=== PATIENT | female | born 1940 | race Caucasian/White ===

== ENCOUNTER 2021-03-06 15:24 | Inpatient (IN) | payer MEDICARE, BC, SELFPAY ==
--- NOTE | ~2021-03-06 | XR_ITS ---
EXAMINATION: XR chest 1V portable DATE: 03/08/2021 01:57 INDICATION: Shortness of breath. TECHNIQUE: A single frontal view of the chest was obtained. COMPARISON: Chest 2 views 11/11/2017, CT abdomen and pelvis 03/06/2021 FINDINGS: There is a diffuse interstitial pattern, consistent with mild pulmonary edema. No pleural e ffusion or pneumothorax. Cardiomegaly is noted. IMPRESSION: 1. Mild pulmonary edema. 2. Cardiomegaly. Reviewed, dictated and finalized at location A.
--- NOTE | ~2021-03-06 | CT_ITS ---
EXAMINATION: CT abdomen pelvis w con INDICATION: Abdominal pain, vomiting, melena TECHNIQUE: Computed tomographic images of the abdomen and pelvis were obtained after the administrati on of 100 cc of Omnipaque 350 intravenous contrast. The dose-length product (DLP) was 217.08 mGy-cm. Automated exposure control and iterative reconstruction technique were employed. COMPARISON: 02/12/2012 FINDINGS: Minimal dependent atelectasis is present in the lung bases. The heart size is normal. Punct ate calcifications in an otherwise normal spleen likely represent healed granulomatous disease. The l iver, pancreas, gallbladder, and adrenal glands are normal. Cysts of the kidneys measure up to 11 mm on the left. There are areas of cortical scarring of the kidneys. There is calcified atherosclerosis of the aorta and many of the other arteries. No pathologically enlarged abdominal or pelvic lymph nod es are identified. There is severe lumbar spondylosis. There are lucencies in the left femoral head a nd neck at the sites of prior orthopedic hardware. IMPRESSION: 1. No CT correlate for the patient's symptoms. Reviewed, dictated and finalized at location A.
--- NOTE | ~2021-03-06 | CT_ITS ---
EXAMINATION: CT brain wo con DATE: 03/11/2021 13:52 INDICATION: Hematoma post fall with head injury TECHNIQUE: Computed tomography (CT) of the head was performed without intravenous contrast. Sagittal and coronal reconstructions were performed. The mA was adjusted according to patient size. Iterative reconstruction technique was employed. The dose-length product was 605.33 mGy-cm. COMPARISON: None FINDINGS: No fracture. Regions of encephalomalacia in the anterior right corpus callosum, pericallosal right fr ontal lobe consistent with chronic infarct. Additional old lacunar infarct versus prominent perivascu lar space at the inferior aspect of the right basal ganglia. No acute intracranial hemorrhage, acute infarction or abnormal extra axial fluid collection. Ventricles are normal and symmetric. No mass/mas s effect. Changes of bilateral intraocular lens replacement. There has also been prior right-sided sc leral banding procedure. The paranasal sinuses and mastoid air cells are normal. Intracranial calcifi ed cerebral atherosclerosis is noted. IMPRESSION: 1. No fracture or acute intracranial process. 2. 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 2. Additional small old lacunar infarcts versus prominent perivascular space at the inferior right ba brie ganglia. Reviewed, dictated and finalized at location A. IMPRESSION: 1. No fracture or acute intracranial process. 2. 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 2. Additional small old lacunar infarcts versus prominent perivascular space at the inferior right basal ganglia.
[2021-03-06 15:28] VITALS: BP 138/83; PULSE 98; RESP 20; TEMP 36.8; O2SAT 100
[2021-03-06 16:00] LABS: Basophils Percent Auto 0.1 % (0.2-1.2); Hematocrit 23.4 % (37.0-47.0); Hemoglobin 7.7 g/dL (12.0-15.0); Immature Granulocyte Absolute 0.04 K/mm3 (0.00-0.031); Immature Granulocyte Percent A 0.6 % (0-0.5); Lymphocytes Percent Auto 14.5 % (18.3-44.2); Mean Corpuscular HGB Conc 32.9 g/dl (32-36); Mean Corpuscular Hemoglobin 29.7 pg (26-34); Mean Corpuscular Volume 90.3 fl (80-100); Mean Platelet Volume 11.6 fl (7.4-10.4); Monocytes Absolute Auto 0.4 K/mm3 (0.1-0.6); Monocytes Percent Auto 5.2 % (2.6-8.5); Neutrophils Absolute Auto 5.5 K/mm3 (1.3-6.7); Neutrophils Percent Auto 79.6 % (45.5-73.1); Platelet Count Result 181 k/mm3 (150-375); Red Blood Count 2.59 M/mm3 (4.2-5.4); Red Cell Distribution Width 13.3 % (11.5-14.5); White Blood Count 6.9 K/mm3 (4.5-10.0)
[2021-03-06 16:16] LABS: Albumin Level 4.1 g/dL (3.5-5.1); Alkaline Phosphatase 44 U/L (38-126); Anion Gap 9 mmol/L (8-16); Aspartate Amino Transferase 46 U/L (14-36); Bilirubin,Total < 0.1 mg/dL (0.2-1.3); Blood Urea Nitrogen 26 mg/dL (7-17); Calcium 9.4 mg/dL (8.4-10.2); Carbon Dioxide 23 mmol/L (22-30); Chloride 101 mmol/L (98-107); Estimated Glomerular Filt Rate 60; Glucose 129 mg/dL (65-105); Lipase 175 U/L (23-300); Potassium 4.1 mmol/L (3.4-5.0); Sodium 133 mmol/L (137-145)
[2021-03-06 17:02] LABS: Alanine Aminotransferase 31 U/L (4-35)
[2021-03-06 17:03] VITALS: BP 132/105; PULSE 97; RESP 18; O2SAT 100
[2021-03-06 17:14] LABS: Add Urine Microscopic? YES; Appearance Urine Cloudy (Clear); Bacteria Urine Trace /hpf; Bilirubin Urine Negative (Negative); Blood Urine Negative (Negative); Color Urine Yellow (Yellow); Glucose Urine UA Negative (Negative); Ketones Urine Negative (Negative); Leukocyte Esterase Ur 2+ LEU/UL (Negative); Mucus Urine Rare /lpf; Nitrate Urine Negative (Negative); Protein Urine 2+ mg/dL (Negative); RBC Urine 0-2 /hpf (0-2); Squamous Epithelial Cell Urine Moderate /hpf (Few); Transitional Epi Cells Urine Rare /hpf (None Seen); Urobilinogen Urine Negative mg/dL (<2.0)
--- NOTE | 2021-03-06 17:59 | ED.NAVMDI ---
HPI - Nausea/Vomiting/Diarrhea General Chief complaint: Nausea/Vomiting/Diarrhea Stated complaint: diarrhea Time Seen by Provider: 03/06/21 17:48 Source: patient Mode of arrival: ambulatory Limitations: no limitations History of Present Illness HPI Narrative: This is a 80 year old female that presents to the ER for nausea and vomiting x 1 week. Associated with black stools. Reports diffuse crampy abdominal pain. Denies fever, chest pain, shortness of breath, dysuria or hematuria. Related Data Home Medications Medication Instructions Recorded Confirmed aspirin 325 mg tablet 325 mg PO DAILY 08/31/19 08/31/19 Allergies Allergy/AdvReac Type Severity Reaction Status Date / Time No Known Allergies Verified 09/02/19 14:18 Review of Systems Review of Systems: Narrative: CONSTITUTIONAL: Denies fever GASTROINTESTINAL: Reports abdominal pain, nausea, vomiting, and diarrhea. GENITOURINARY: Denies dysuria or hematuria. All systems reviewed & are unremarkable except as noted in HPI and below PMFSH Past Medical History Medical History (Updated 03/06/21 @ 21:26 by Mayda Quiroz PA-C) Allergic rhinitis Atherosclerotic heart disease of [place] coronary artery without angina pectoris Chronic low back pain without sciatica Chronic renal insufficiency, stage III (moderate) Hypothyroidism, unspecified Mixed hyperlipidemia Peripheral neuropathy, idiopathic PVD (peripheral vascular disease) Thoracic kyphosis Type 2 diabetes mellitus without complication Vitamin D deficiency Surgical History Surgical History (Updated 09/02/19 @ 14:[address] Gal[address] MA) Fracture of left hip requiring operative repair H/O heart artery stent History of carpal tunnel surgery of right wrist History of cataract surgery History of inguinal hernia repair Interdigital neuroma of left foot Rotator cuff arthropathy of right shoulder Family History Family History (Updated 02/08/15 @ 10:44 by DOCTOR UNKNOWN) Mother Hypertension Family history of heart disease in male family member before age 55 Father Family history of lung cancer Other Family history of cardiovascular disease Family history of coronary artery disease Social History Social History (Updated 09/02/19 @ 14:[address] Gal[address] MA) Smoking status: Never smoker Second hand tobacco smoke exposure: No Alcohol intake: never Substance use: never Substance use type: does not use Gender identity (if verbalized by the patient): Female Exam Narrative: Exam Narrative: GENERAL: Elderly, well-nourished, and in no acute distress. HEAD: Normocephalic, atraumatic. EYES: EOMI. CHEST: Clear to auscultation. No respiratory distress. No wheezes rales or rhonchi HEART: Regular rate and rhythm. No murmur heard. Normal peripheral pulses. ABDOMEN: Soft, nondistended, normal active bowel sounds. Tender to palpation throughout the abdomen, without guarding. No CVA tenderness EXTREMITIES: Normal range of motion. No edema. SKIN: Warm, dry, no rash. NEURO: No focal deficits. Alert and oriented x3. PSYCH: Normal mood and affect RECTAL: Hemoccult positive Course Consultations Consultation #1: Spoke with Dr. Ramsey about patient and work-up who will consult for GI bleed. Would like patient n.p.o. at midnight Date: 03/06/21 Time: 21:45 Consultation #2: Spoke with hospitalist about patient and work-up who accepts admission Date: 03/06/21 Time: 21:45 Vital Signs Vital signs: Vital Signs Temperature 98.2 F 03/06/21 15:28 Pulse Rate 98 03/06/21 15:28 Respiratory Rate 20 03/06/21 15:28 Blood Pressure 138/83 03/06/21 15:28 Pulse Oximetry 100 03/06/21 15:28 Temperature 98.2 F 03/06/21 15:28 Pulse Rate 99 03/06/21 20:56 Respiratory Rate 20 03/06/21 20:56 Blood Pressure 128/65 03/06/21 20:56 Pulse Oximetry 99 03/06/21 20:56 MDM - Nausea/Vomiting/Diarrhea MDM Narrative Medical decision making narrative: Patient presents
[2021-03-06] MEDS: ONDANSETRON INJ 4 MG/2 ML VIAL IV PUSH ×2 (18:18→21:01)
[2021-03-06] MEDS: MORPHINE SULFATE (*CRX) 2 MG/ML INJ IV PUSH (18:18)
[2021-03-06 18:33] VITALS: BP 124/64; PULSE 97; RESP 20; O2SAT 100
[2021-03-06 18:47] LABS: Prothrombin Time 14.1 Seconds (11.1-14.7)
[2021-03-06 18:48] LABS: Partial Thromboplastin Time 26.9 SECONDS (22.3-36.8)
[2021-03-06 19:04] VITALS: BP 124/69; PULSE 99; RESP 20; O2SAT 100
[2021-03-06 19:43] LABS: Lactic Acid Reflex 1.8 mmol/L (0.7-2.1)
[2021-03-06] MEDS: PANTOPRAZOLE SODIUM IV 40 MG VIAL IV PUSH (19:43)
--- NOTE | 2021-03-06 20:37 | PC.NURSE ---
called lab @ 2037, spoke with freddie and added urine culture
[2021-03-06 20:56] VITALS: BP 128/65; PULSE 99; RESP 20; O2SAT 99
[2021-03-06] MEDS: BELLADONNA ALK/PHENOB ELIX 10 ML, MAG HYDROX/ALUMINUM HYD/SIMETH 30 ML, LIDOCAINE HCL 2... PO (21:01)
[2021-03-06] MEDS: METOCLOPRAMIDE HCL INJ 10 MG/2 ML VIAL IV PUSH (21:45)
[2021-03-06] MEDS: SODIUM CHLORIDE 0.9% IV 1,000 ML 125 ML IV CONT (21:45)
[2021-03-06] MEDS: diphenhydrAMINE HCl INJ 50 MG/ML VIAL 25 MG IV PUSH (21:45)
[2021-03-06 22:26] VITALS: BP 130/71; PULSE 91; RESP 21; O2SAT 100
[2021-03-06 22:43] LABS: Hematocrit 22.1 % (37.0-47.0); Hemoglobin 7.2 g/dL (12.0-15.0)
--- NOTE | 2021-03-06 23:12 | ADMGEN ---
This patient, Layla Srinivasan, was admitted to Medical Room 343-01. Patient/family oriented to hospital policies and general routines including ID bracelet, bed and alarms, visiting hours, pain management, procedures, bathroom and other care routines, personal items, smoking policy, room service/diet, and visiting hours. Information on how to activate the Rapid Response Team has been discussed. Patient/Family are encouraged to report perceived risks to care and to ask questions if they do not understand what they are told or what they should do.
[2021-03-06 23:16] VITALS: BMI 23.6
[2021-03-07] VITALS (17 sets, daily range): BP systolic 77–109; BP diastolic 46–66; PULSE 48–103; RESP 16–28; TEMP 36.3–36.8; O2SAT 94–100
--- NOTE | 2021-03-07 01:57 | PM.IMHP ---
H&P: HPI History of Present Illness Date/Time: 03/07/21 01:57 Chief Complaint: ABDOMINAL PAIN Narrative: THIS IS AN 80-YEAR-OLD FEMALE WITH PAST MEDICAL HISTORY SIGNIFICANT FOR Allergic rhinitis ,Atherosclerotic heart disease of [place] coronary artery without angina pectoris,Chronic low back pain,Chronic renal insufficiency, stage III (moderate),Hypothyroidism, Mixed hyperlipidemia ,Peripheral neuropathy, idiopathic,PVD (peripheral vascular disease) ,Thoracic kyphosis ,Type 2 diabetes mellitus without complication,Vitamin D deficiency. PATIENT PRESENTS TO EMERGENCY ROOM DUE TO ABDOMINAL PAIN FOR 3 DAYS OR SO BLACK STOOLS GENERALIZED FATIGUE WEAKNESS POOR APPETITE, NO SYNCOPE OR NEAR SYNCOPE HAD SOME NAUSEA AND VOMITING BUT NO HEMATEMESIS. NO FEVERS NO RIGORS NO CHILLS NO COUGH NO SPUTUM PRODUCTION PATIENT WAS FOUND TO HAVE A HEMOGLOBIN OF 7.7. A CT OF ABDOMEN AND PELVIS WAS UNREMARKABLE. Review of Systems Review of Systems: Narrative: PATIENT PRESENTED TO THE EMERGENCY ROOM DUE TO ABDOMINAL PAIN IN THE EPIGASTRIC AREA BLACK STOOLS FOR SEVERAL DAYS NO HEMATEMESIS NO HEMATOCHEZIA Constitutional: Constitutional: Denies chills, Reports fatigue, Reports lethargy and Reports weakness Eyes: Eyes: Denies change in vision ENT: Denies nasal congestion and Denies nasal discharge Cardiovascular: Cardiovascular: Denies chest pain, Denies irregular heart rhythm, Denies leg edema, Denies palpitations and Reports dyspnea Respiratory: Respiratory: Denies cough Gastrointestinal: Gastrointestinal: Reports abdominal pain, Reports melena, Reports nausea and Reports vomiting Genitourinary: Genitourinary: Denies dysuria Musculoskeletal: Musculoskeletal: Denies arthralgias and Denies joint swelling Integumentary/Breasts: Skin/Breast: Denies rash Neurologic: Denies focal weakness and Denies Sensory deficit (Neuro) Endocrine: Endocrine: Denies no additional endocrine complaints Hematologic/Lymphatic: Hematologic/Lymphatic: Denies no additional hematologic/lymphatic complaints Allergic/Immunologic: Allergic/Immunologic: Denies no additional allergic/immunologic complaints [facility] Past Medical History Medical History (Updated 03/06/21 @ 21:26 by Mayda Quiroz PA-C) Allergic rhinitis Atherosclerotic heart disease of [place] coronary artery without angina pectoris Chronic low back pain without sciatica Chronic renal insufficiency, stage III (moderate) Hypothyroidism, unspecified Mixed hyperlipidemia Peripheral neuropathy, idiopathic PVD (peripheral vascular disease) Thoracic kyphosis Type 2 diabetes mellitus without complication Vitamin D deficiency Surgical History Surgical History (Updated 09/02/19 @ 14:[address] Gal[address] MA) Fracture of left hip requiring operative repair H/O heart artery stent History of carpal tunnel surgery of right wrist History of cataract surgery History of inguinal hernia repair Interdigital neuroma of left foot Rotator cuff arthropathy of right shoulder Family History Family History (Updated 02/08/15 @ 10:44 by DOCTOR UNKNOWN) Mother Hypertension Family history of heart disease in male family member before age 55 Father Family history of lung cancer Other Family history of cardiovascular disease Family history of coronary artery disease Social History Social History (Updated 09/02/19 @ 14:[address] Gal[address] MA) Smoking status: Never smoker Second hand tobacco smoke exposure: No Alcohol intake: never Substance use: never Substance use type: does not use Gender identity (if verbalized by the patient): Female Spiritual care concerns: No Meds Home Medications and Allergies Home Medications Medication Instructions Recorded Confirmed Type levothyroxine 25 mcg tablet 25 mcg PO DAILY #90 tablet 06/22/20 03/06/21 Rx metoprolol succinate 25 mg 50 mg PO DAILY #60 tablet 06/22/20 03/06/21 Rx tablet,extended release 24 hr clopidogrel 75 mg tablet 75 mg PO
[2021-03-07 03:57] LABS: Hematocrit 21.8 % (37.0-47.0); Hemoglobin 7.3 g/dL (12.0-15.0)
[2021-03-07 06:03] LABS: Glucose Point of Care 139 (65-105)
[2021-03-07] MEDS: SODIUM CHLORIDE 0.9% IV 1,000 ML 75 ML IV CONT (06:12)
[2021-03-07] MEDS: ONDANSETRON INJ 4 MG/2 ML VIAL IV PUSH (06:12)
--- NOTE | 2021-03-07 07:47 | WPDGICN ---
Assessment and Plan Assessment and plan (1) Melena: Code(s): K92.1 - Melena Status: Acute Assessment and Plan: continue with iv protonix, will do urgent EGD later today- probably upper GIB (2) Acute blood loss anemia: Code(s): D62 - Acute posthemorrhagic anemia Status: Acute Assessment and Plan: monitor hb and keep about 7 supportive care (3) Acute GI bleeding: Code(s): K92.2 - Gastrointestinal hemorrhage, unspecified Status: Acute (4) Peripheral neuropathy, idiopathic: Code(s): G60.9 - Hereditary and idiopathic neuropathy, unspecified Status: Acute (5) Atherosclerotic heart disease of [place] coronary artery without angina pectoris: Code(s): I25.10 - Atherosclerotic heart disease of [place] coronary artery without angina pectoris Status: Acute Assessment and Plan: holding plavix for now GI Consult Note Consult date/time: 03/07/21 07:47 Reason for consult: melena, acute anemia HPI: Layla Srinivasan is a 80 year old female with history of CAD on plavix, peripheral neuropathy, PVD who came here with 3 days of nausea, abdominal discomfort and most recently noted dark tarry stools. Hb on arrival was low 7.7, bun 26, creat 0.9, normal platelets and INR. Never had GI bleeding. She had CT scan a/p that was reviewed and normal. She had colonoscopy years ago and cologuard last year Review of Systems Constitutional: Constitutional: Reports fatigue and Denies headache(s) Eyes: Eyes: Denies blurry vision ENT: Reports Normal hearing present, Denies headache(s) and Denies neck pain Cardiovascular: Cardiovascular: Denies chest pain and Denies dyspnea Respiratory: Respiratory: Denies dyspnea Gastrointestinal: Gastrointestinal: Reports melena and Reports nausea Genitourinary: Genitourinary: Denies dysuria Musculoskeletal: Musculoskeletal: Denies neck pain Integumentary/Breasts: Skin/Breast: Denies dry skin Neurologic: Reports Normal hearing present, Denies headache(s) and Denies weakness Psychiatric: Psychiatric: Denies anxiety Endocrine: Endocrine: Denies change in body appearance Hematologic/Lymphatic: Hematologic/Lymphatic: Denies easy bleeding Allergic/Immunologic: Allergic/Immunologic: Denies urticaria PMFSH Past Medical History Medical History (Updated 03/07/21 @ 09:16 by Rainer Melo MD) Acute blood loss anemia Allergic rhinitis Atherosclerotic heart disease of [place] coronary artery without angina pectoris Chronic low back pain without sciatica Chronic renal insufficiency, stage III (moderate) Hypothyroidism, unspecified Melena Mixed hyperlipidemia Peripheral neuropathy, idiopathic PVD (peripheral vascular disease) Thoracic kyphosis Type 2 diabetes mellitus without complication Vitamin D deficiency Surgical History Surgical History (Updated 09/02/19 @ 14:[address] Gal[address] MA) Fracture of left hip requiring operative repair H/O heart artery stent History of carpal tunnel surgery of right wrist History of cataract surgery History of inguinal hernia repair Interdigital neuroma of left foot Rotator cuff arthropathy of right shoulder Family History Family History (Updated 02/08/15 @ 10:44 by DOCTOR UNKNOWN) Mother Hypertension Family history of heart disease in male family member before age 55 Father Family history of lung cancer Other Family history of cardiovascular disease Family history of coronary artery disease Social History Social History (Updated 09/02/19 @ 14:[address] MA) Smoking status: Never smoker Second hand tobacco smoke exposure: No Alcohol intake: never Substance use: never Substance use type: does not use Gender identity (if verbalized by the patient): Female Spiritual care concerns: No Meds Home Medications and Allergies Home Medications Medication Instructions Recorded Confirmed Type levothyroxine 25 mcg tab
[2021-03-07] MEDS: GABAPENTIN 300 MG CAPSULE 900 MG PO ×2 (08:24→17:49)
[2021-03-07] MEDS: PANTOPRAZOLE SODIUM IV 40 MG VIAL IV PUSH ×2 (08:24→23:57)
[2021-03-07] MEDS: METOPROLOL SUCCINATE EXT REL 50 MG TABCR PO (08:25)
--- NOTE | 2021-03-07 11:20 | PC.NURSE ---
Pt down to GI lab for EGD
--- NOTE | 2021-03-07 11:37 | WPDANESEPPF ---
Anes - Initial Pre Proc Eval Procedure: Operation Date: 03/07/21 13:15 Proposed Procedures p Esophagogastroduodenoscopy - Rainer Melo MD Date/Time: 03/07/21 11:37 Surgeon: Gloria Benavides MD Pre Op Diagnosis: GI bleed Patient Data Age: 80 Gender: F Height: 1.52 m Weight: 55 kg Last Vital Signs Temp 36.4 C 03/07/21 05:43 Pulse 86 03/07/21 08:25 Resp 18 03/07/21 05:43 BP 109/62 03/07/21 05:48 Pulse Ox 100 03/07/21 05:43 Allergies Allergy/AdvReac Type Severity Reaction Status Date / Time No Known Allergies Verified 03/07/21 11:28 Home Medications Medication Instructions Recorded Confirmed Type levothyroxine 25 mcg tablet 25 mcg PO DAILY #90 tablet 06/22/20 03/07/21 Rx metoprolol succinate 25 mg 50 mg PO DAILY #60 tablet 06/22/20 03/07/21 Rx tablet,extended release 24 hr clopidogrel 75 mg tablet 75 mg PO DAILY #90 tablet 11/20/20 03/07/21 Rx aspirin [Adult Aspirin] 81 mg PO DAILY 03/06/21 03/07/21 History gabapentin 900 mg PO BID 03/06/21 03/07/21 History Laboratory Tests 03/06/21 03/06/21 03/06/21 15:31 15:31 17:00 WBC 6.9 K/mm3 K/mm3 (4.5-10.0) RBC 2.59 M/mm3 L M/mm3 (4.2-5.4) Hgb 7.7 g/dL L g/dL (12.0-15.0) Hct 23.4 % L % (37.0-47.0) MCV 90.3 fl fl (80-100) MCH 29.7 pg pg (26-34) MCHC 32.9 g/dl g/dl (32-36) RDW 13.3 % % (11.5-14.5) Plt Count 181 k/mm3 k/mm3 (150-375) MPV 11.6 fl H fl (7.4-10.4) Immature Gran % (Auto) 0.6 % H % (0-0.5) Neut % (Auto) 79.6 % H % (45.5-73.1) Lymph % (Auto) 14.5 % L % (18.3-44.2) [place] % (Auto) 5.2 % % (2.6-8.5) Eos % (Auto) 0.0 % % (0-4.4) Baso % (Auto) 0.1 % L % (0.2-1.2) Lymph # (Auto) 1.00 K/mm3 K/mm3 (0.9-3.2) [place] # (Auto) 0.4 K/mm3 K/mm3 (0.1-0.6) Eos # (Auto) 0.0 K/mm3 K/mm3 (0-0.3) Baso # (Auto) 0.0 K/mm3 K/mm3 (0.0-0.1) Abs Immat Gran (auto) 0.04 K/mm3 H K/mm3 (0.00-0.031) Absolute Neuts (auto) 5.5 K/mm3 K/mm3 (1.3-6.7) Absolute Nucleated RBC 0.0 K/mm3 K/mm3 (0.0-0.012) Nucleated RBC % 0.0 % % (0.0-0.2) PT INR APTT Sodium 133 mmol/L L mmol/L (137-145) Potassium 4.1 mmol/L mmol/L (3.4-5.0) Chloride 101 mmol/L mmol/L (98-107) Carbon Dioxide 23 mmol/L mmol/L (22-30) Anion Gap 9 mmol/L mmol/L (8-16) BUN 26 mg/dL H mg/dL (7-17) Creatinine 0.90 mg/dL mg/dL (0.7-1.0) Estim Creat Clear Calc Not Reportable Estimated GFR 60 (59 - ) Glucose 129 mg/dL H mg/dL (65-105) POC Capillary Glucose Lactic Acid Calcium 9.4 mg/dL mg/dL (8.4-10.2) Total Bilirubin < 0.1 mg/dL L mg/dL (0.2-1.3) AST 46 U/L H U/L (14-36) ALT 31 U/L U/L (4-35) Alkaline Phosphatase 44 U/L U/L (38-126) Total Protein 7.0 g/dL g/dL (6.3-8.2) Albumin 4.1 g/dL g/dL (3.5-5.1) Lipase 175 U/L U/L (23-300) Urine Color Yellow (Yellow) Urine Appearance Cloudy H (Clear) Urine pH 6.0 (5.0-9.0) Ur Specific [place] 1.020 (1.001-1.035) Urine Protein 2+ mg/dL H mg/dL (Negative) Urine Glucose (UA) Negative mg/dL mg/dL (Negative) Urine Ketones Negative mg/dL mg/dL (Negative) Ur Blood (Man) Negative (Negative) Urine Nitrate Negative (Negative) Urine Bilirubin Negative (Negative) Urine Urobilinogen Negative mg/dL mg/dL (<2.0) Leukocyte Esterase Rfl 2+ MADI/UL H MADI/UL (Negative) Urine RBC 0-2 /hpf /hpf (0-2) Urine WBC 4-6 /hpf H /hpf Ur Squamous Epith Cells
[2021-03-07] MEDS: LACTATED RINGERS 1,000 ML 150 ML IV CONT (11:40)
[2021-03-07 12:31] LABS: Hematocrit 21.8 % (37.0-47.0); Hemoglobin 7.1 g/dL (12.0-15.0)
--- NOTE | 2021-03-07 12:46 | SUR.PHASEII ---
PT RECEIVING PHENYLEPHRINE PER ANESTHESIA IN POST OP, DR CAMPOS AWARE AND TREATING
[2021-03-07 15:37] LABS: Hematocrit 21.6 % (37.0-47.0)
[2021-03-07 15:42] LABS: Hemoglobin 6.9 g/dL (12.0-15.0)
--- NOTE | 2021-03-07 15:50 | PM.IMPN ---
Progress Note: A&P Assessment and Plan (1) Acute GI bleeding: Code(s): K92.2 - Gastrointestinal hemorrhage, unspecified Status: Acute Assessment and Plan: REPEAT H&H IS 7.2 FROM 7 POINT TRANSFUSE NEEDED HOLDING PLAVIX AND ASPIRIN GI CONSULT SUPPORTIVE CARE (2) Type 2 diabetes mellitus without complication: Code(s): E11.9 - Type 2 diabetes mellitus without complications Status: Acute Assessment and Plan: CURRENTLY NPO ACCU-CHEKS Q.6 HOURS INSULIN SLIDING SCALE NEEDED ON NO MEDS CONTROLLED WITH DIET 03/07/21 15:50 Chief Complaint: ABDOMINAL PAIN Narrative: THIS IS AN 80-YEAR-OLD FEMALE WITH PAST MEDICAL HISTORY SIGNIFICANT FOR Allergic rhinitis ,Atherosclerotic heart disease of [place] coronary artery without angina pectoris,Chronic low back pain,Chronic renal insufficiency, stage III (moderate),Hypothyroidism, Mixed hyperlipidemia ,Peripheral neuropathy, idiopathic,PVD (peripheral vascular disease) ,Thoracic kyphosis ,Type 2 diabetes mellitus without complication,Vitamin D deficiency. PATIENT PRESENTS TO EMERGENCY ROOM DUE TO ABDOMINAL PAIN FOR 3 DAYS OR SO BLACK STOOLS GENERALIZED FATIGUE WEAKNESS POOR APPETITE, NO SYNCOPE OR NEAR SYNCOPE HAD SOME NAUSEA AND VOMITING BUT NO HEMATEMESIS. NO FEVERS NO RIGORS NO CHILLS NO COUGH NO SPUTUM PRODUCTION PATIENT WAS FOUND TO HAVE A HEMOGLOBIN OF 7.7. A CT OF ABDOMEN AND PELVIS WAS UNREMARKABLE. 03/07 today patient was seen by GI and taken to GI lab had a EGD was essentially normal without any source of bleeding did show some gastritis and hiatal hernia We have continued Protonix 40 mg b.i.d. IV, will do iron profile, will continue to monitor and further recommendation to follow, patient will will be seen by GI and further recommendation to follow (3) Peripheral neuropathy, idiopathic: Code(s): G60.9 - Hereditary and idiopathic neuropathy, unspecified Status: Acute Assessment and Plan: CONTINUE GABAPENTIN (4) PVD (peripheral vascular disease): Code(s): I73.9 - Peripheral vascular disease, unspecified Status: Acute Assessment and Plan: STABLE CONTINUE TO MONITOR (5) Chronic renal insufficiency, stage III (moderate): Code(s): N18.3 - Chronic kidney disease, stage 3 (moderate) Status: Acute Assessment and Plan: CONTINUE TO MONITOR DAILY INTAKE AND OUTPUT (6) Atherosclerotic heart disease of [place] coronary artery without angina pectoris: Code(s): I25.10 - Atherosclerotic heart disease of [place] coronary artery without angina pectoris Status: Acute Assessment and Plan: IS STABLE HOLDING PLAVIX AND CONTINUE METOPROLOL Subjective Date/time seen: 03/07/21 15:50 Chief Complaint: ABDOMINAL PAIN Narrative: THIS IS AN 80-YEAR-OLD FEMALE WITH PAST MEDICAL HISTORY SIGNIFICANT FOR Allergic rhinitis ,Atherosclerotic heart disease of [place] coronary artery without angina pectoris,Chronic low back pain,Chronic renal insufficiency, stage III (moderate),Hypothyroidism, Mixed hyperlipidemia ,Peripheral neuropathy, idiopathic,PVD (peripheral vascular disease) ,Thoracic kyphosis ,Type 2 diabetes mellitus without complication,Vitamin D deficiency. PATIENT PRESENTS TO EMERGENCY ROOM DUE TO ABDOMINAL PAIN FOR 3 DAYS OR SO BLACK STOOLS GENERALIZED FATIGUE WEAKNESS POOR APPETITE, NO SYNCOPE OR NEAR SYNCOPE HAD SOME NAUSEA AND VOMITING BUT NO HEMATEMESIS. NO FEVERS NO RIGORS NO CHILLS NO COUGH NO SPUTUM PRODUCTION PATIENT WAS FOUND TO HAVE A HEMOGLOBIN OF 7.7. A CT OF ABDOMEN AND PELVIS WAS UNREMARKABLE. 03/07 today patient was seen by GI and taken to GI lab had a EGD was essentially normal without any source of bleeding did show some gastritis and hiatal hernia We have continued Protonix 40 mg b.i.d. IV, will do iron profile, will continue to monitor and further recommendation to follow, patient will will be seen by GI and further recommendation to follow Review of Systems Review of System
[2021-03-07 21:40] LABS: Glucose Point of Care 174 mg/dl (65-105)
[2021-03-08] VITALS (36 sets, daily range): BP systolic 82–150; BP diastolic 44–100; PULSE 42–95; RESP 10–30; TEMP 34.4–37.2; O2SAT 90–100
--- NOTE | 2021-03-08 | ECHO_ITS ---
Patient Info Name: Layla Srinivasan Age: 80 years : 1940 Gender: Female Ht: 60 in Wt: 138 lbs BSA: 1.65 m2 HR: 85 bpm BP: 112 / 71 mmHg Heart Rhythm: Sinus Rhythm Technical Quality: Good Exam Date: 03/08/2021 10:27 AM Exam Location: [facility] Pulmonary Exam Room: ICU 12 Patient Status: Inpatient Admit Date: 03/07/2021 Staff Ordering Physician: Ishan Nava MD Computer Forensics Investigator: Marta Shine RDCS Attending Provider: Gloria Benavides MD Exam Type: CA echo doppler color flow Study Info Indications - shock NSTEMI Complete two-dimensional, color flow and Doppler transthoracic echocardiogram is performed. Summary 1. Complete two-dimensional, color flow and Doppler transthoracic echocardiogram is performed. 2. Left ventricular chamber dimension is normal. 3. Left ventricular systolic function is moderately reduced, estimated at 35%. There is akinesis of the basal inferior wall. The apical septal, apical and mid anterior marroquin are hypokinetic. 4. There is mildly increased left ventricular wall thickness. 5. The left ventricular diastolic function is grade II diastolic dysfunction. 6. Left atrial chamber dimension is moderately enlarged. 7. There is mild to moderate tricuspid valve regurgitation. 8. Mild pulmonary hypertension, estimated pulmonary arterial systolic pressure is 44 mmHg. Left Ventricle Left ventricular chamber dimension is normal. Left ventricular systolic function is moderately reduced, estimated at 35%. There is akinesis of the basal inferior wall. The apical septal, apical and mid anterior marroquin are hypokinetic. There is mildly increased left ventricular wall thickness. The left ventricular diastolic function is grade II diastolic dysfunction. Global longitudinal strain is moderately elevated at -8 %. T. Right Ventricle Right ventricular chamber dimension is normal. Right ventricular systolic function is normal. Left Atria Left atrial chamber dimension is moderately enlarged. Right Atria Right atrial chamber dimension is normal. Aortic Valve The aortic valve is trileaflet. There is no aortic valve stenosis. There is no aortic valve regurgitation. There is mild aortic valve calcification. Pulmonic Valve The pulmonic valve is normal. There is mild pulmonic regurgitation. Mitral Valve The mitral valve has thickened leaflets. There is mild mitral valve regurgitation. The mitral valve annulus is severely calcified. Tricuspid Valve The tricuspid valve leaflets are normal. There is mild to moderate tricuspid valve regurgitation. Mild pulmonary hypertension, estimated pulmonary arterial systolic pressure is 44 mmHg. Pericardium/Pleural The pericardium appears normal. There is no pericardial effusion. Inferior Vena Cava Dilated inferior vena cava with >50% collapse upon inspiration consistent with elevated right atrial pressure, 10 mmHg. Aorta The aortic root size at the sinus of Valsalva is normal. There is mild aortic atherosclerosis. Left Ventricular Outflow Tract Name Value Normal LVOT 2D LVOT Diameter 2.0 cm LVOT Doppler LVOT Peak Gradient
--- NOTE | 2021-03-08 00:19 | ECG_ITS ---
Measurements Intervals [place] Rate: 42 P: [place]: 0 QRS: 19 QRSD: 111 T: 138 QT: 544 QTc: 455 Interpretive Statements JUNCTIONAL RHYTHM SEPTAL ST ELEVATION MYOCARDIAL INFARCT- PROBABLY RECENT ABNORMAL ECG Electronically Signed On 03-08-2021 6:57:17 CDT by Anatoliy Bolton D.O.
[2021-03-08 00:45] LABS: Alveolar/Arterial O2 Gradient 41.1 mmHg; Base Excess ABG -11.8 mEq/l (+/-2.0); Fractional Inspired Oxygen 21 %; HCO3 ABG 12.2 mEq/l (22.0-26.0); Oxygen Content ABG 10.4 %vol (16.0-22.0); Oxygen Saturation ABG 96.2 % (95.0-100.0); Oxyhemoglobin 93.5 % THb (90.0-100.0); PO2 ABG 82.9 mmHg (80.0-100.0); PO2 FiO2 Ratio Arterial Blood 3.95 %
[2021-03-08 00:46] LABS: Device ROOM AIR; PCO2 ABG 21.5 mmHg (35.0-45.0); Site Drawn RIGHT BRACHIAL; Total Hemoglobin 7.8 g/dL (12.0-18.0)
--- NOTE | 2021-03-08 00:48 | PC.NURSE ---
Dr Smith on floor to check on pt after ABGs and EKG came back. He stated we needed to call a rapid on the pt to have labs and pt moved quicker.
--- NOTE | 2021-03-08 01:20 | PC.NURSE ---
Pt moved to ICU 12. Teddy Davis RN assumed care of pt. PTs son, Garcia, called and updated on pts condition and move to ICU.
[2021-03-08 01:28] LABS: Hematocrit 22.9 % (37.0-47.0); Hemoglobin 7.2 g/dL (12.0-15.0); Mean Corpuscular HGB Conc 31.4 g/dl (32-36); Mean Corpuscular Hemoglobin 30.4 pg (26-34); Mean Corpuscular Volume 96.6 fl (80-100); Mean Platelet Volume 11.7 fl (7.4-10.4); Platelet Count Result 152 k/mm3 (150-375); Red Blood Count 2.37 M/mm3 (4.2-5.4); Red Cell Distribution Width 14.3 % (11.5-14.5); White Blood Count 10.7 K/mm3 (4.5-10.0)
--- NOTE | 2021-03-08 01:32 | ECG_ITS ---
Measurements Intervals [place] Rate: 82 P: 68 RI: 111 QRS: 31 QRSD: 115 T: 173 QT: 389 QTc: 456 Interpretive Statements SINUS RHYTHM WITH SHORT RI INTERVAL SEPTAL ST ELEVATION MYOCARDIAL INFARCT- ACUTE, WITH RECIPROCAL ST DEPRESSION IN HIGH LATERAL LEADS BASELINE ARTIFACT- I, II, III, AVR, AVL, AVF, V1 ABNORMAL ECG Electronically Signed On 03-08-2021 7:00:06 CDT by Anatoliy Bolton D.O.
[2021-03-08 01:42] LABS: Anion Gap 14 mmol/L (8-16); Blood Urea Nitrogen 23 mg/dL (7-17); Calcium 8.3 mg/dL (8.4-10.2); Carbon Dioxide 13 mmol/L (22-30); Chloride 105 mmol/L (98-107); Estimated CRCL calculation 20 ml/min; Estimated Glomerular Filt Rate 36; Glucose 183 mg/dL (65-105); Potassium 4.9 mmol/L (3.4-5.0); Sodium 132 mmol/L (137-145)
--- NOTE | 2021-03-08 02:21 | P.PNCROSS_ITS ---
Event Note Event Note Event Note: Called for evaluation for this patient approximately 1230 am, she is less responsive and her pulse was noted to be low compared to earlier. stat EKG was obtained which showed bradycardia with high grade AV block suggestive. patient mumbles and still was followig minimal commands. carpentry specialist was called and labs were obtained. patient remained bradycardiac. stat ABG showed respiratory alkalosis with undelrying severe metabolic acidosis. 2 amp of bicarb iv push was given with subsequnet heart rate improved back to sinus rhythm at the rate of 80s. bp has been lowish and remained borderline at systolic 80s to 90s. iv fluid bolus was started and given during the rapid response. after bicarb push, pateint became more conversive and stated her name in full senstence, but reamined lethargic. She was the moved to the ICU for further care. REpeat EKG was obatined which showed lateral wall ischemic changes with St depressions on I, aVL, V5 and V6. She did not have any older EKG for me to compare. she denies any chest pain. stat labs revealed metabolic acidosis, mild shellie with cr of 1.4. CXR with mild opacities in right lower lobe, leukoctyosis noted. hypothermia noted wth temp 94.1 degreee fahrenheit. will cover for possible sepsis with zosyn iv for now. Troponin came back high at 48. Consulted cadiology with regards to EKG chagnes over the phone and EKGs were reviewed by the cardioloigst Gordon Schafer as well, suggested no indication of cath due to recent GI bleed and suggested medical managment. Hb came back at 7.2, earlier today, it was 6.9. egd this am was noted with gastritis and ulcerative changes with no active bleeding. with stable h and h, not suggestive of active bleed. decision made to give her rectal Apsirin 300 mg x 1 (she was not coherent enough to take oral) Have dsicussed with family over the pohne (Garcia, son) and confirms her to be full code, in case she deteriorates. She is placed on bicarb gtt for her metabolic acidosis.will transfuse one unit of PRBC to keep her hb > 8 at least. will trend her troponin. She was slowly improved in her mental status, able to verbalize her son and daughter's name and open her eyes. Discused findings and evaluation with service support representative Dr. Nava over the phone. CCT: 60 mins
--- NOTE | 2021-03-08 02:27 | PC.NURSE ---
Dr. Cevallos at bedside. Aware of low temperature of 94.0. Dr. Cevallos also notified Dr. Nava and Dr. Mullen from Cardiology. Orders received and put in per Dr. Cevallos.
[2021-03-08] MEDS: ASPIRIN 300 MG SUPPOSITORY RECTAL (02:44)
[2021-03-08] MEDS: SODIUM BICARBONATE 8.4% 150 MEQ in WATER, STERILE FOR INJECTION 950 ML 100 MEQ IV CONT (03:03)
--- NOTE | 2021-03-08 03:42 | PC.NURSE ---
Spoke with Judit Montero (daughter of patient). Updated regarding patient condition. Daughter will be in at 10am for visiting hours. Contact number [phone]
[2021-03-08 04:48] LABS: Immature Platelet Fraction Pct 7.7 % (0.9-11.2); Mean Corpuscular HGB Conc 32.8 g/dl (32-36); Mean Corpuscular Hemoglobin 30.3 pg (26-34); Mean Corpuscular Volume 92.4 fl (80-100); Mean Platelet Volume 11.8 fl (7.4-10.4); Platelet Count Result 116 k/mm3 (150-375); Red Blood Count 2.11 M/mm3 (4.2-5.4)
[2021-03-08 05:03] LABS: Hematocrit 19.5 % (37.0-47.0); Hemoglobin 6.4 g/dL (12.0-15.0)
--- NOTE | 2021-03-08 07:53 | WPDCNINT ---
Assessment and Plan Assessment and plan (1) STEMI (ST elevation myocardial infarction): Code(s): I21.3 - ST elevation (STEMI) myocardial infarction of unspecified site Status: Acute Assessment and Plan: EKG done last night showed ST elevation. Cardiology was consulted. In light of her GI bleed no intervention was made. Patient herself denies any chest pain at this time and this appears secondary to anemia and hypotension Transfuse PRBC as indicated above Hold further aspirin and Plavix until GI bleed is sorted out Serial troponins are ordered Check echocardiogram Hold beta-elizabeth due to hypotension (2) Acute GI bleeding: Code(s): K92.2 - Gastrointestinal hemorrhage, unspecified Status: Acute Assessment and Plan: She had EGD on03/07 which showed unspecified gastric ulcer and gastritis Continue PPI IV q.12 hours GI following Hold aspirin and Plavix at this time (3) Acute blood loss anemia: Code(s): D62 - Acute posthemorrhagic anemia Status: Acute Assessment and Plan: Most recent hemoglobin is 6.4 She is getting 1st unit of blood. Will transfuse 2 units in total Serial hemoglobin monitoring after that Transfuse as needed (4) Hypotension: Code(s): I95.9 - Hypotension, unspecified Status: Acute Assessment and Plan: Is most likely secondary to blood loss buts infection is another possibility Blood pressure has improved with IV fluid bolus patient has not required vasopressors at this time Continue close monitoring in ICU Continue cautious IV fluids Blood culture ordered Patient started on empiric Zosyn (5) GIL (acute kidney injury): Code(s): N17.9 - Acute kidney failure, unspecified Status: Acute Assessment and Plan: Likely prerenal. Patient is getting blood transfusion and IV fluids Monitor intake and output and electrolytes (6) Metabolic acidosis: Code(s): E87.2 - Acidosis Status: Acute Assessment and Plan: IV AFib bicarb (7) Type 2 diabetes mellitus without complication: Code(s): E11.9 - Type 2 diabetes mellitus without complications Status: Acute Assessment and Plan: CURRENTLY NPO ACCU-CHEKS Q.6 HOURS INSULIN SLIDING SCALE NEEDED ON NO MEDS at home Additional Plan DVT prophylaxis -SCDs Stress ulcer prophylaxis -PPI Nutrition -NPO s Code Status - Full Code Total Critical Care Time - 35 minutes Due to a high probability of clinically significant, life threatening deterioration, the patient required my highest level of preparedness to intervene emergently and I personally spent this critical care time directly and personally managing the patient. This critical care time included obtaining a history; examining the patient; pulse oximetry; ordering and review of studies; arranging urgent treatment with development of a management plan; evaluation of patient's response to treatment; frequent reassessment; and discussions with other providers. It was exclusive of separately billable procedures and treating other patients and teaching time. 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 Who presented yesterday to ER with chief complaint of abdominal pain. She also complained of black stools on presentation. She was found to be anemic and underwent EGD which showed gastric ulcer and gastritis. Consuelo
--- NOTE | 2021-03-08 08:14 | WPDANESPN ---
Anes - Prog Note Post-Op Date/Time: 03/08/21 08:14 Cardiovascular status: other (cardiology consulted. receiving blood. monitor HH) Respiratory status: other (on 2L NC) Airway patency: baseline Mental status: baseline Post-Op hydration status: normal Vital Signs: Last Vital Signs Temp 36.6 C 03/08/21 07:33 Pulse 90 03/08/21 07:33 Resp 19 03/08/21 07:33 BP 112/71 03/08/21 07:33 Pulse Ox 100 03/08/21 07:33 Pain Score (VAS): 0 I/O: Intake & Output 03/07/21 03/08/21 03/08/21 23:59 07:59 15:59 Intake Total 930 50 Output Total 375 Balance 930 -325 Laboratory Tests 03/08/21 04:13 03/08/21 01:17 03/06/21 03/07/21 03/07/21 18:27 09:04 15:30 WBC RBC Hgb 7.1 L 6.9 L* Hct 21.8 L 21.6 L MCV MCH MCHC RDW Plt Count MPV % Immature Plt Fraction Puncture Site ABG pH ABG pCO2 ABG pO2 ABG PO2/FiO2 Ratio ABG HCO3 ABG O2 Saturation ABG O2 Content ABG Base Excess A-a Gradient Oxyhemoglobin Total Hemoglobin O2 Delivery Device O2 Liters/Min FiO2 Sodium Potassium Chloride Carbon Dioxide Anion Gap BUN Creatinine Estim Creat Clear Calc Estimated GFR Glucose POC Capillary Glucose Calcium Troponin I Blood Type O Positive Antibody Screen Negative Crossmatch See Detail 03/07/21 03/08/21 03/08/21 20:34 00:41 01:17 WBC 10.7 H RBC 2.37 L Hgb 7.2 L Hct 22.9 L MCV 96.6 D MCH 30.4 MCHC 31.4 L RDW 14.3 Plt Count 152 MPV 11.7 H % Immature Plt Fraction Puncture Site Right brachial ABG pH 7.370 ABG pCO2 21.5 L* ABG pO2 82.9 ABG PO2/FiO2 Ratio 3.95 ABG HCO3 12.2 L ABG O2 Saturation 96.2 ABG O2 Content 10.4 L ABG Base Excess -11.8 A-a Gradient 41.1 Oxyhemoglobin 93.5 Total Hemoglobin 7.8 L* O2 Delivery Device Room air O2 Liters/Min 0.0 FiO2 21 Sodium Potassium Chloride Carbon Dioxide Anion Gap BUN Creatinine Estim Creat Clear Calc Estimated GFR Glucose POC Capillary Glucose 174 H Calcium Troponin I Blood Type Antibody Screen Crossmatch 03/08/21 03/08/21 03/08/21 01:17 04:13 04:13 WBC 9.0 RBC 2.11 L Hgb 6.4 L* Hct 19.5 L* MCV 92.4 MCH 30.3 MCHC 32.8 RDW 14.0 Plt Count 116 L MPV 11.8 H % Immature Plt Fraction 7.7 Puncture Site ABG pH ABG pCO2 ABG pO2 ABG PO2/FiO2 Ratio ABG HCO3 ABG O2 Saturation ABG O2 Content ABG Base Excess A-a Gradient Oxyhemoglobin Total Hemoglobin O2 Delivery Device O2 Liters/Min FiO2 Sodium 132 L Potassium 4.9 Chloride 105 Carbon Dioxide 13 L Anion Gap 14 BUN 23 H Creatinine 1.40 H Estim Creat Clear Calc 20 Estimated GFR 36 L Glucose 183 H POC Capillary Glucose Calcium 8.3 L Troponin I 48.400 H* 41.300 H* Blood Type Antibody Screen Crossmatch Microbiology 03/06/21 17:00 Urine Clean Catch Urine Culture - Final Post-procedural complaints: none Patient Feedback: Patient satisfied with anesthetic care.
[2021-03-08 08:46] LABS: Anion Gap 2 mmol/L (8-16); Blood Urea Nitrogen 25 mg/dL (7-17); Calcium 7.8 mg/dL (8.4-10.2); Carbon Dioxide 29 mmol/L (22-30); Chloride 103 mmol/L (98-107); Estimated CRCL calculation 23 ml/min; Estimated Glomerular Filt Rate 36; Glucose 126 mg/dL (65-105); Potassium 4.6 mmol/L (3.4-5.0); Sodium 134 mmol/L (137-145)
[2021-03-08 08:48] LABS: NT Pro B Type Natriuretic Pept 19100 pg/mL (5-100)
--- NOTE | 2021-03-08 09:08 | ECG_ITS ---
Measurements Intervals [place] Rate: 68 P: 86 NV: 142 QRS: 24 QRSD: 112 T: 142 QT: 406 QTc: 434 Interpretive Statements SINUS RHYTHM SEPTAL INFARCT, PROBABLY RECENT BASELINE ARTIFACT- II, III, AVR, AVL, AVF ABNORMAL ECG Electronically Signed On 03-08-2021 10:19:44 CDT by Anatoliy Bolton D.O.
--- NOTE | 2021-03-08 09:26 | PM.CNCAR ---
Assessment and Plan Assessment and plan (1) STEMI (ST elevation myocardial infarction): Code(s): I21.3 - ST elevation (STEMI) myocardial infarction of unspecified site Status: Acute Assessment and Plan: Twelve lead EKG consistent with ST elevations in the septal leads with Q-waves suggestive of recent infarction. While patient denied chest pain her severe abdominal pain may have been an anginal equivalent or possibly secondary to gastric ulcers and recent GI bleed. Patient is currently asymptomatic, hemodynamically stable but is not a candidate for coronary angiography due to GI bleed, severe anemia secondary to gastric ulcers currently being transfused. Patient had discontinued aspirin and clopidogrel as an outpatient on her own. She is not a candidate for antiplatelet or anticoagulant therapy at this time. She is aware and we discussed at length the high risk nature of the situation with regards to subsequent infarction, arrhythmia and/or heart failure should she have significant LV dysfunction and/or . Proceeding with LHC and/or PCI poses grave risk to her as she would require DAPT and anticoagulation which has a very high risk of subsequent bleeding and destabilization without the options of stopping antiplatelet therapy due to unacceptably high risk for acute stent thrombosis with intervention. Therefore, our only reasonable option at present is to continue 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 supportive management as able. -Pt remains at high risk for complications -Continue telemetry, ICU observation for now. -Ideally, would initiate Beta-blockers if able to tolerate yet given junctional escape rhythm early this morning will hold for now. Patient should receive statin therapy. -2D echocardiogram. Will review when available to assess LV function, valve pathology pulmonary pressures. -DVT prophylaxis. (2) Acute GI bleeding: Code(s): K92.2 - Gastrointestinal hemorrhage, unspecified Status: Acute Assessment and Plan: Per primary service and GI. Currently being transfused. Monitor volume status. PPI per GI. follow H/H and monitor for ongoing bleeding. (3) Acute blood loss anemia: Code(s): D62 - Acute posthemorrhagic anemia Status: Acute Assessment and Plan: Severe, status post transfusion as above. (4) GIL (acute kidney injury): Code(s): N17.9 - Acute kidney failure, unspecified Status: Acute Assessment and Plan: Monitor closely. Follow BMP. Likely secondary to severe anemia, hypotension. 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 History of moderate LV dysfunction 40% EF at that time. (6) Type II diabetes mellitus with complication: Code(s): E11.8 - Type 2 diabetes mellitus with unspecified complications Status: Acute Assessment and Plan: Per primary service. (7) Mixed hyperlipidemia: Code(s): E78.2 - Mixed hyperlipidemia Status: Acute Assessment and Plan: Needs to be on statin therapy. Will initiate atorvastatin 40 mg daily. History of Present Illness History of Present Illness Consult date/time: Date of service: 03/08/21 09:26 Cardiology consultation at the request of Dr. Smith of [facility] for our opinion regarding abnormal EKG and elevated troponin in setting of GI bleed. Requesting physician: Aristeo Smith MD Consult reason: Other (GI bleed, elevated troponin, abnormal EKG) Reason For Visit: GI bleed Narrative: Patient is a very pleasant 80-year-old female with past medical history significant for CAD followed by Dr. 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
[2021-03-08] MEDS: PANTOPRAZOLE SODIUM IV 40 MG VIAL IV PUSH ×2 (09:45→21:13)
[2021-03-08 12:03] LABS: Glucose Point of Care 113 mg/dl (65-105)
[2021-03-08 14:47] LABS: Hematocrit 26.8 % (37.0-47.0); Hemoglobin 9.2 g/dL (12.0-15.0)
--- NOTE | 2021-03-08 15:32 | WPDGIPROGNO ---
Progress Note: A&P Assessment and Plan (1) Gastric ulcer: Code(s): K25.9 - Gastric ulcer, unspecified as acute or chronic, without hemorrhage or perforation Status: Acute Assessment and Plan: egd showed erosive gastritis with ulcers but no visible vessel or need to treat endoscopically (this was the cause of recent anemia and melena)- no high risk features of re-bleeding given acute IA with ST elevation and high troponin, should be ok to resume plavix and low dose aspirin in this setting, of course will need to monitor for more signs of GIB this was discuss with hospitalist, also with daughter and son at bedside family says that patient had cardiac stent in the past but unfortunately last year she has not seen any doctor because of COVID (just afraid to go out) (2) Melena: Code(s): K92.1 - Melena Status: Acute Assessment and Plan: continue to monitor for more signs of bleeding (3) Acute blood loss anemia: Code(s): D62 - Acute posthemorrhagic anemia Status: Acute (4) STEMI (ST elevation myocardial infarction): Code(s): I21.3 - ST elevation (STEMI) myocardial infarction of unspecified site Status: Acute Assessment and Plan: medical treatment by cardiology (5) Hypotension: Code(s): I95.9 - Hypotension, unspecified Status: Acute Assessment and Plan: resolved (6) CAD (coronary artery disease): Code(s): I25.10 - Atherosclerotic heart disease of [place] coronary artery without angina pectoris Status: Acute (7) Type II diabetes mellitus with complication: Code(s): E11.8 - Type 2 diabetes mellitus with unspecified complications Status: Acute (8) Metabolic acidosis: Code(s): E87.2 - Acidosis Status: Acute Assessment and Plan: treated and better Subjective Date/time seen: 03/08/21 15:32 Interval history: EGD with gastric ulcers but non-bleeding (no need of endoscopic treatment) yesterday was hypotensive and lethargic, EKG with ST elevation and elevated troponins. She was transferred to ICU, now she is doing better after blood transfusion. No more GI bleeding. She denies chest pain Review of Systems Review of Systems: All systems reviewed & are unremarkable except as noted in HPI and below Exam Const: General: comfortable Other: elderly frail HENMT: General nose exam: Normal nares present Eyes: General: appearance normal, both eyes and all related structures Neck: Neck: supple Resp: Auscultation: clear to auscultation bilaterally Cardio: Rate: regular rate GI: Inspection: non-distended GI Palp: No Tenderness to palpation present (GI) and No Guarding due to palpation present (GI) Auscultation: normal bowel sounds Skin: General skin exam: no erythema Neuro: Speech: normal speech Motor exam (neuro): Normal motor muscle tone present throughout Extrem: General: normal to inspection Psych: Mental Status: mental status grossly normal Objective Data Vital Signs Vital Signs: Vital Signs - 24 hr 03/07/21 20:29 03/08/21 00:50 03/08/21 01:00 Temperature 97.6 F 97.6 F 94 F L Pulse Rate 48 L 42 L 70 Respiratory Rate 28 H 20 Blood Pressure 98/47 L 90/44 L 86/65 L Pulse Oximetry 100 91 90 03/08/21 01:28 03/08/21 01:51 03/08/21 02:00 Temperature 94.0 F L Pulse Rate 84 75 71 Respiratory Rate 14 22 H 30 H Blood Pressure 87/68 L 102/47 L 82/50 L Pulse Oximetry 98 100 03/08/21 02:15 03/08/21 02:30 03/08/21 03:00 Temperature Pulse Rate 70 70 67 Respiratory Rate 22 H 22 H 21 H Blood Pressure 101/67 109/71 95/57 L Pulse Oximetry 97 100 100 03/08/21 03:14 03/08/21 04:00 03/08/21 05:00 Temperature 97.5 F L Pulse Rate 66 67 67 Respiratory Rate 23 H 22 H 23 H Blood Pressure 97/59 L 97/60 L Pulse Oximetry 100 99 100 03/08/21 06:00 03/08/21 06:18 03/08/21 06:33 Temperature 98.1 F 98.2 F Pulse Rate 68 71 77 Respiratory Rate 23 H 25 H 22 H Blood Pressure 110/
--- NOTE | 2021-03-08 15:47 | PM.IMPN ---
Progress Note: A&P Assessment and Plan (1) Acute GI bleeding: Code(s): K92.2 - Gastrointestinal hemorrhage, unspecified Status: Acute Assessment and Plan: REPEAT H&H IS 7.2 FROM 7 POINT TRANSFUSE NEEDED HOLDING PLAVIX AND ASPIRIN GI CONSULT SUPPORTIVE CARE 03/08/21 Hgb stable no further GI bleeding, ulcers found on EGD without active bleeding (2) Type 2 diabetes mellitus without complication: Code(s): E11.9 - Type 2 diabetes mellitus without complications Status: Acute Assessment and Plan: CURRENTLY NPO ACCU-CHEKS Q.6 HOURS INSULIN SLIDING SCALE NEEDED ON NO MEDS CONTROLLED WITH DIET (3) Peripheral neuropathy, idiopathic: Code(s): G60.9 - Hereditary and idiopathic neuropathy, unspecified Status: Acute Assessment and Plan: CONTINUE GABAPENTIN (4) PVD (peripheral vascular disease): Code(s): I73.9 - Peripheral vascular disease, unspecified Status: Acute Assessment and Plan: STABLE CONTINUE TO MONITOR (5) Chronic renal insufficiency, stage III (moderate): Code(s): N18.3 - Chronic kidney disease, stage 3 (moderate) Status: Acute Assessment and Plan: CONTINUE TO MONITOR DAILY INTAKE AND OUTPUT (6) Atherosclerotic heart disease of [place] coronary artery without angina pectoris: Code(s): I25.10 - Atherosclerotic heart disease of [place] coronary artery without angina pectoris Status: Acute Assessment and Plan: IS STABLE HOLDING PLAVIX AND ASA CONTINUE METOPROLOL 03/08/21 cleared to restart ASA/plavix by GI will order plavix now Additional Plan 03/07/21 15:50 Chief Complaint: ABDOMINAL PAIN Narrative: THIS IS AN 80-YEAR-OLD FEMALE WITH PAST MEDICAL HISTORY SIGNIFICANT FOR Allergic rhinitis ,Atherosclerotic heart disease of [place] coronary artery without angina pectoris,Chronic low back pain,Chronic renal insufficiency, stage III (moderate),Hypothyroidism, Mixed hyperlipidemia ,Peripheral neuropathy, idiopathic,PVD (peripheral vascular disease) ,Thoracic kyphosis ,Type 2 diabetes mellitus without complication,Vitamin D deficiency. PATIENT PRESENTS TO EMERGENCY ROOM DUE TO ABDOMINAL PAIN FOR 3 DAYS OR SO BLACK STOOLS GENERALIZED FATIGUE WEAKNESS POOR APPETITE, NO SYNCOPE OR NEAR SYNCOPE HAD SOME NAUSEA AND VOMITING BUT NO HEMATEMESIS. NO FEVERS NO RIGORS NO CHILLS NO COUGH NO SPUTUM PRODUCTION PATIENT WAS FOUND TO HAVE A HEMOGLOBIN OF 7.7. A CT OF ABDOMEN AND PELVIS WAS UNREMARKABLE. 03/07 today patient was seen by GI and taken to GI lab had a EGD was essentially normal without any source of bleeding did show some gastritis and hiatal hernia We have continued Protonix 40 mg b.i.d. IV, will do iron profile, will continue to monitor and further recommendation to follow, patient will will be seen by GI and further recommendation to follow 03/08 no further episodes of bleeding, 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 therapy for STEMI, can restart DAPT per GI, will need ongoing PPI. Plan of care explained to daughter and son of pt Time Spent With Patient Time with patient: 25 - 35 minutes Subjective Date/time seen: 03/08/21 15:47 AAOx3 daughter bedside and son on phone, plan of care discussed w them Exam Narrative: Exam Narrative: GEN: comfortable, NAD HEENT: eyes are clear and none icteric LUNGS:symmetric rise no use of accessory muscles Lower extremities: no edema SKIN: nonjaundiced Neuro: grossly intact.AAOx3 Objective Data Vital Signs Vital Signs: Vital Signs - 24 hr 03/07/21 20:29 03/08/21 00:50 03/08/21 01:00 Temperature 97.6 F 97.6 F 94 F L Pulse Rate 48 L 42 L 70 Respiratory Rate 28 H 20 Blood Pressure 98/47 L 90/44 L 86/65 L Pulse Oximetry 100 91 90 03/08/21 01:28 03/08/21 01:51 03/08/21 02:00 Temperature 94.0 F L Pulse Rate 84 75 71 Respiratory Rate 14 22 H 30 H Blood Pressure 87/68 L 102/47 L 82/50 L Pulse Oximetry 98 100 03/08/21 02:15 03/08/21 02:30 03/08/21 03:00 Temperature Pulse
[2021-03-08 17:18] LABS: Glucose Point of Care 107 mg/dl (65-105)
[2021-03-08 19:53] LABS: Hematocrit 27.3 % (37.0-47.0); Hemoglobin 9.2 g/dL (12.0-15.0)
[2021-03-08 21:25] LABS: Glucose Point of Care 117 mg/dl (65-105)
[2021-03-09] VITALS (18 sets, daily range): BP systolic 89–136; BP diastolic 49–92; PULSE 66–83; RESP 10–22; TEMP 36.7–37.3; O2SAT 91–96
[2021-03-09 03:30] LABS: Alanine Aminotransferase 164 U/L (4-35); Albumin Level 2.9 g/dL (3.5-5.1); Alkaline Phosphatase 45 U/L (38-126); Anion Gap 0 mmol/L (8-16); Aspartate Amino Transferase 294 U/L (14-36); Bilirubin,Total 0.4 mg/dL (0.2-1.3); Blood Urea Nitrogen 20 mg/dL (7-17); Carbon Dioxide 29 mmol/L (22-30); Chloride 102 mmol/L (98-107); Estimated CRCL calculation 32 ml/min; Estimated Glomerular Filt Rate 53; Glucose 123 mg/dL (65-105); Magnesium 2.3 mg/dL (1.6-2.3); Potassium 3.9 mmol/L (3.4-5.0); Sodium 131 mmol/L (137-145)
[2021-03-09 03:57] LABS: Hematocrit 28.5 % (37.0-47.0); Hemoglobin 9.6 g/dL (12.0-15.0); Immature Platelet Fraction Pct 7.5 % (0.9-11.2); Mean Corpuscular HGB Conc 33.7 g/dl (32-36); Mean Corpuscular Hemoglobin 31.1 pg (26-34); Mean Corpuscular Volume 92.2 fl (80-100); Mean Platelet Volume 11.7 fl (7.4-10.4); Platelet Count Result 120 k/mm3 (150-375); Red Blood Count 3.09 M/mm3 (4.2-5.4); Red Cell Distribution Width 14.5 % (11.5-14.5); White Blood Count 10.3 K/mm3 (4.5-10.0)
[2021-03-09] MEDS: LEVOTHYROXINE SODIUM 25 MCG TABLET PO (06:52)
[2021-03-09 08:14] LABS: Glucose Point of Care 117 mg/dl (65-105)
--- NOTE | 2021-03-09 08:55 | ECG_ITS ---
Measurements Intervals [place] Rate: 76 P: 67 MI: 143 QRS: 42 QRSD: 128 T: -1 QT: 383 QTc: 431 Interpretive Statements SINUS RHYTHM ANTEROSEPTAL MYOCARDIAL INFARCTION , PROBABLY RECENT BASELINE ARTIFACT- II, III, AVR, AVL, AVF. V1 ABNORMAL ECG Electronically Signed On 03-09-2021 12:03:49 CDT by Anatoliy Bolton D.O.
--- NOTE | 2021-03-09 09:50 | WPDINTPN ---
Progress Note: A&P Assessment and Plan (1) STEMI (ST elevation myocardial infarction): Code(s): I21.3 - ST elevation (STEMI) myocardial infarction of unspecified site Status: Acute Assessment and Plan: EKG done on transferred to ICU showed ST elevation. Cardiology was consulted. In light of her GI bleed no intervention was made. Patient never had any chest keri and this appears secondary to anemia and hypotension Patient was transferred PRBC Resume aspirin and Plavix Serial troponins were done and are trending down now Have reviewed echocardiogram Start low-dose beta-elizabeth Start statin (2) Acute GI bleeding: Code(s): K92.2 - Gastrointestinal hemorrhage, unspecified Status: Acute Assessment and Plan: She had EGD on03/07 which showed unspecified gastric ulcer and gastritis Hemoglobin appears to be stable and no obvious bleeding at this time GI is following Continue PPI q.12 hours GI following Resume aspirin and Plavix at this time Monitor hemoglobin (3) Acute blood loss anemia: Code(s): D62 - Acute posthemorrhagic anemia Status: Acute Assessment and Plan: She received 2 unit of packed red cells. Hemoglobin now stable. Recheck later in the day Transfuse as needed (4) Hypotension: Code(s): I95.9 - Hypotension, unspecified Status: Acute Assessment and Plan: Is most likely secondary to blood loss buts infection is another possibility Blood pressure has improved with IV fluid bolus patient has not required vasopressors at this time Off IV fluids Blood culture ordered Patient started on empiric Zosyn (5) GIL (acute kidney injury): Code(s): N17.9 - Acute kidney failure, unspecified Status: Acute Assessment and Plan: Likely prerenal. Improved with blood transfusion and IV fluids. Monitor intake and output and electrolytes (6) Metabolic acidosis: Code(s): E87.2 - Acidosis Status: Acute Assessment and Plan: IV fluids with bicarb were given on presentation Now resolved (7) Type 2 diabetes mellitus without complication: Code(s): E11.9 - Type 2 diabetes mellitus without complications Status: Acute Assessment and Plan: Advance diet Sliding scale insulin ON NO MEDS at home Additional Plan DVT prophylaxis -SCDs Stress ulcer prophylaxis -PPI Nutrition -advance diet as per GI Code Status - Full Code Transfer out ICU today Subjective Date/time seen: 03/09/21 0730 Patient feels better this morning as compared to yesterday and denies any specific complaints. She did not had any bowel movements overnight. Denies any hematochezia melena. No nausea vomiting. Denies any episodes of chest pain no shortness of breath. She is alert oriented x3 today. She had 1 bowel movement yesterday with no obvious blood or melanotic stool. Hemoglobin has been stable after transfusion and blood pressure has been adequate. All other systems were reviewed and were negative Review of Systems Review of Systems: All systems reviewed & are unremarkable except as noted in HPI and below (HPI HPI) Exam Narrative: Exam Narrative: General: Pt is alert awake and in NAD. Old frail female Lungs/Chest: Trachea central Clear BS B/L, No crackles or wheezing. Cardiac: RRR. Normal S1 S2. No murmurs Circulation: Pedal pulses are intact and symmetrical. Abdomen: Normal bowel sounds.. Soft. NT. ND. Extremities: No clubbing, cyanosis or edema. Warm : Patricia in place Neurologic: Follows commands. Moves all 4 extremities alert oriented x3, Skin: No Rash Objective Data Vital Signs Vital Signs: Vital Signs - 24 hr 03/08/21 10:00 03/08/21 10:12 03/08/21 10:15 Temperature 36.6 C Pulse Rate 84 78 79 Respiratory Rate 18 24 H 16 Blood Pressure 108/63 100/63 Pulse Oximetry 95 93 94 03/08/21 11:15 03/08/21 12:00 03/08/21 14:00 Temperature 36.6 C 36.6 C Pulse Rate 72 71 79 Respiratory Rate 16 18 16
[2021-03-09] MEDS: CLOPIDOGREL BISULFATE 75 MG TABLET PO (10:02)
[2021-03-09] MEDS: METOPROLOL TARTRATE 12.5 MG TABLET PO ×2 (10:02→20:56)
[2021-03-09] MEDS: PANTOPRAZOLE 40 MG TABLET PO ×2 (10:02→20:56)
[2021-03-09] MEDS: ATORVASTATIN 40 MG TABLET PO (10:02)
[2021-03-09] MEDS: ASPIRIN 325 MG ENTERIC TABLET PO (10:02)
--- NOTE | 2021-03-09 14:16 | PM.IMPN ---
Progress Note: A&P Assessment and Plan (1) Gastric ulcer: Code(s): K25.9 - Gastric ulcer, unspecified as acute or chronic, without hemorrhage or perforation Status: Acute (2) Type II diabetes mellitus with complication: Code(s): E11.8 - Type 2 diabetes mellitus with unspecified complications Status: Acute (3) CAD (coronary artery disease): Code(s): I25.10 - Atherosclerotic heart disease of [place] coronary artery without angina pectoris Status: Acute (4) STEMI (ST elevation myocardial infarction): Code(s): I21.3 - ST elevation (STEMI) myocardial infarction of unspecified site Status: Acute (5) Metabolic acidosis: Code(s): E87.2 - Acidosis Status: Acute (6) GIL (acute kidney injury): Code(s): N17.9 - Acute kidney failure, unspecified Status: Acute (7) Hypotension: Code(s): I95.9 - Hypotension, unspecified Status: Acute (8) Acute blood loss anemia: Code(s): D62 - Acute posthemorrhagic anemia Status: Acute (9) Melena: Code(s): K92.1 - Melena Status: Acute (10) Acute GI bleeding: Code(s): K92.2 - Gastrointestinal hemorrhage, unspecified Status: Acute (11) Anemia: Qualifiers: Anemia type: unspecified type Qualified Code(s): D64.9 - Anemia, unspecified Code(s): D64.9 - Anemia, unspecified Status: Acute (12) Type 2 diabetes mellitus without complication: Code(s): E11.9 - Type 2 diabetes mellitus without complications Status: Acute (13) Peripheral neuropathy, idiopathic: Code(s): G60.9 - Hereditary and idiopathic neuropathy, unspecified Status: Acute (14) PVD (peripheral vascular disease): Code(s): I73.9 - Peripheral vascular disease, unspecified Status: Acute (15) Hypothyroidism, unspecified: Code(s): E03.9 - Hypothyroidism, unspecified Status: Acute (16) Chronic renal insufficiency, stage III (moderate): Code(s): N18.3 - Chronic kidney disease, stage 3 (moderate) Status: Acute (17) Systolic heart failure secondary to coronary artery disease: Code(s): I50.20 - Unspecified systolic (congestive) heart failure; I25.10 - Atherosclerotic heart disease of [place] coronary artery without angina pectoris Status: Acute (18) Transaminitis: Code(s): R74.01 - Elevation of levels of liver transaminase levels Status: Acute Additional Plan 03/07/21 15:50 Chief Complaint: ABDOMINAL PAIN Narrative: THIS IS AN 80-YEAR-OLD FEMALE WITH PAST MEDICAL HISTORY SIGNIFICANT FOR Allergic rhinitis ,Atherosclerotic heart disease of [place] coronary artery without angina pectoris,Chronic low back pain,Chronic renal insufficiency, stage III (moderate),Hypothyroidism, Mixed hyperlipidemia ,Peripheral neuropathy, idiopathic,PVD (peripheral vascular disease) ,Thoracic kyphosis ,Type 2 diabetes mellitus without complication,Vitamin D deficiency. PATIENT PRESENTS TO EMERGENCY ROOM DUE TO ABDOMINAL PAIN FOR 3 DAYS OR SO BLACK STOOLS GENERALIZED FATIGUE WEAKNESS POOR APPETITE, NO SYNCOPE OR NEAR SYNCOPE HAD SOME NAUSEA AND VOMITING BUT NO HEMATEMESIS. NO FEVERS NO RIGORS NO CHILLS NO COUGH NO SPUTUM PRODUCTION PATIENT WAS FOUND TO HAVE A HEMOGLOBIN OF 7.7. A CT OF ABDOMEN AND PELVIS WAS UNREMARKABLE. 03/07 today patient was seen by GI and taken to GI lab had a EGD was essentially normal without any source of bleeding did show some gastritis and hiatal hernia We have continued Protonix 40 mg b.i.d. IV, will do iron profile, will continue to monitor and further recommendation to follow, patient will will be seen by GI and further recommendation to follow 03/08 no further episodes of bleeding, 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 therapy for STEMI, can restart DAPT per GI, will need ongoing PPI. Plan of care explained to daughter and son of pt 03/09 cleared by all services for transfer to step down, cont ASA/ plavix and 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 care, anticipate dc to re
--- NOTE | 2021-03-09 15:16 | WPDGIPROGNO ---
Progress Note: A&P Assessment and Plan (1) Gastric ulcer: Code(s): K25.9 - Gastric ulcer, unspecified as acute or chronic, without hemorrhage or perforation Status: Acute Assessment and Plan: egd showed erosive gastritis with ulcers but no visible vessel or need to treat endoscopically (this was the cause of recent anemia and melena)- no high risk features of re-bleeding plavix and aspirin resumed in light of acute PA with ST elevation and high troponin- hb stable and troponin trending down. Continue to monitor closely for GIB tolerating diet (2) Melena: Code(s): K92.1 - Melena Status: Acute Assessment and Plan: continue to monitor for more signs of bleeding but resolved with stable hb after blood transfusion (3) Acute blood loss anemia: Code(s): D62 - Acute posthemorrhagic anemia Status: Acute Assessment and Plan: hb stable, no more signs of gib (4) STEMI (ST elevation myocardial infarction): Code(s): I21.3 - ST elevation (STEMI) myocardial infarction of unspecified site Status: Acute Assessment and Plan: medical treatment by cardiology exacerbated by severe anemia, hypotension and recent GIB she is back on plavix and aspirin (5) Hypotension: Code(s): I95.9 - Hypotension, unspecified Status: Acute Assessment and Plan: resolved (6) CAD (coronary artery disease): Code(s): I25.10 - Atherosclerotic heart disease of [place] coronary artery without angina pectoris Status: Acute (7) Type II diabetes mellitus with complication: Code(s): E11.8 - Type 2 diabetes mellitus with unspecified complications Status: Acute Subjective Date/time seen: 03/09/21 15:16 Interval history: denies chest pain, she is comfortable and tolerating diet. BP now is normal. Review of Systems Review of Systems: All systems reviewed & are unremarkable except as noted in HPI and below Exam Const: General: comfortable Other: elderly frail HENMT: General nose exam: Normal nares present Eyes: General: appearance normal, both eyes and all related structures Neck: Neck: supple Resp: Auscultation: clear to auscultation bilaterally Cardio: Rate: regular rate GI: Inspection: non-distended GI Palp: No Tenderness to palpation present (GI) and No Guarding due to palpation present (GI) Auscultation: normal bowel sounds Urinary Catheter: Urinary Catheter: patent and draining Skin: General skin exam: no erythema Neuro: Speech: normal speech Motor exam (neuro): Normal motor muscle tone present throughout Extrem: General: normal to inspection Psych: Mental Status: mental status grossly normal Objective Data Vital Signs Vital Signs: Vital Signs - 24 hr 03/08/21 15:40 03/08/21 16:00 03/08/21 17:38 Temperature 98 F Pulse Rate 81 73 79 Respiratory Rate 20 18 Blood Pressure 107/66 Pulse Oximetry 97 94 03/08/21 18:00 03/08/21 18:17 03/08/21 20:00 Temperature 98.9 F Pulse Rate 95 79 67 Respiratory Rate 20 18 12 Blood Pressure 150/100 H 116/71 Pulse Oximetry 95 98 99 03/08/21 21:00 03/08/21 22:00 03/09/21 00:00 Temperature 99 F Pulse Rate 83 79 74 Respiratory Rate 12 10 L 10 L Blood Pressure 109/74 124/70 128/79 Pulse Oximetry 99 98 93 03/09/21 02:00 03/09/21 04:00 03/09/21 06:00 Temperature 98.4 F Pulse Rate 77 67 68 Respiratory Rate 11 L 10 L 10 L Blood Pressure 134/74 112/62 126/73 Pulse Oximetry 95 95 95 03/09/21 08:00 03/09/21 10:00 03/09/21 10:02 Temperature 99.1 F Pulse Rate 83 77 83 Respiratory Rate 10 L 17 Blood Pressure 134/82 136/78 Pulse Oximetry 95 96 03/09/21 11:40 03/09/21 12:00 03/09/21 14:00 Temperature 98.0 F Pulse Rate 77 76 70 Respiratory Rate 16 12 Blood Pressure 98/74 L 112/66 Pulse Oximetry 95 92 94 Intake/Output Intake/Output: Intake & Output 03/06/21 03/07/21 03/08/21 03/09/21 23:59 23:59 23:59 23:59 Intake Total 100 2930 2321
--- NOTE | 2021-03-09 15:21 | PM.PNCARD ---
Progress Note: A&P Assessment and Plan (1) STEMI (ST elevation myocardial infarction): Code(s): I21.3 - ST elevation (STEMI) myocardial infarction of unspecified site Status: Acute Assessment and Plan: EKG suggested ST elevation but without associated chest pain from 03/08/2021. Elevated troponin when checked 03/08/2021 suggestive subacute process with relatively flat curve now trending downward this a.m.. EKG shows septal infarction probably recent with resolving ST changes. No anginal symptoms. Discussed at length with Dr. Darnell and Dr. Schafer Interventional Cardiology with whom I agree proceeding with intervention but provide no incremental benefit with greater likelihood of harm particular patient is hemodynamically stable and asymptomatic. Will observe tolerance with aspirin and clopidogrel. Monitor for bleeding very closely, follow H&H. Conservative medical management best option at this time. Discussed with the patient verbalized agreement with this plan of care. -Continue telemetry, okay to transfer to step-down unit. -2D echocardiogram personally reviewed EF 35% with anterior and inferior wall motion abnormalities consistent with ischemic cardiomyopathy. Patient is not in decompensated heart failure present. Monitor volume status. Toprol XL 50 mg daily is on her medication list yet she has not been receiving this. Will discontinue. Change to Toprol XL prior to discharge as tolerated. Continue metoprolol 12.5 mg twice daily at this time. Observe tolerance on telemetry. Aspirin and clopidogrel okay per GI. Monitor bleeding. Change aspirin to 81 mg daily. -DVT prophylaxis. (2) Acute GI bleeding: Code(s): K92.2 - Gastrointestinal hemorrhage, unspecified Status: Acute Assessment and Plan: Per primary service and GI. Currently being transfused. Monitor volume status. PPI per GI. follow H/H and monitor for ongoing bleeding. H&H stable. (3) Acute blood loss anemia: Code(s): D62 - Acute posthemorrhagic anemia Status: Acute Assessment and Plan: Severe, status post transfusion as above. (4) GIL (acute kidney injury): Code(s): N17.9 - Acute kidney failure, unspecified Status: Acute Assessment and Plan: Improved, stable. Monitor closely. Follow BMP. Likely secondary to severe anemia, hypotension. 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 History of moderate LV dysfunction 40% EF at that time. (6) Type II diabetes mellitus with complication: Code(s): E11.8 - Type 2 diabetes mellitus with unspecified complications Status: Acute Assessment and Plan: Per primary service. (7) Mixed hyperlipidemia: Code(s): E78.2 - Mixed hyperlipidemia Status: Acute Assessment and Plan: Continue atorvastatin 40 mg daily. Subjective Date/time seen: Date of service: 03/09/21 15:21 Follow-up for elevated troponin, ST-elevation in setting of acute GI bleed and severe blood loss anemia Patient has no complaints this morning. States she continues to feel quite well. Denies significant abdominal discomfort, no chest pain, shortness of breath. Feeling much better overall. GI has approved resumption of aspirin and clopidogrel. BP stable. Review of Systems Review of Systems: All systems reviewed & are unremarkable except as noted in HPI and below Constitutional: Constitutional: Reports as per HPI, Reports no additional constitutional complaints and Reports weakness Eyes: Eyes: Reports as per HPI and Reports no additional eye complaints ENT: Reports system reviewed and no additional complaints, except as documented and Reports as per HPI Cardiovascular: Cardiovascula
[2021-03-09 15:58] LABS: Glucose Point of Care 120 mg/dl (65-105)
[2021-03-09 17:18] LABS: Hematocrit 29.5 % (37.0-47.0); Hemoglobin 9.7 g/dL (12.0-15.0)
[2021-03-09] MEDS: GABAPENTIN 300 MG CAPSULE 900 MG PO (17:45)
[2021-03-09 21:11] LABS: Glucose Point of Care 144 mg/dl (65-105)
[2021-03-10] VITALS (15 sets, daily range): BP systolic 117–144; BP diastolic 57–81; PULSE 61–90; RESP 12–22; TEMP 36.5–37.6; O2SAT 91–100
[2021-03-10 04:23] LABS: Hematocrit 30.3 % (37.0-47.0); Hemoglobin 9.8 g/dL (12.0-15.0); Immature Platelet Fraction Pct 6.6 % (0.9-11.2); Mean Corpuscular HGB Conc 32.3 g/dl (32-36); Mean Corpuscular Hemoglobin 30.8 pg (26-34); Mean Corpuscular Volume 95.3 fl (80-100); Mean Platelet Volume 11.2 fl (7.4-10.4); Platelet Count Result 135 k/mm3 (150-375); Red Blood Count 3.18 M/mm3 (4.2-5.4); Red Cell Distribution Width 14.7 % (11.5-14.5); White Blood Count 8.2 K/mm3 (4.5-10.0)
[2021-03-10 05:03] LABS: Alanine Aminotransferase 135 U/L (4-35); Albumin Level 2.9 g/dL (3.5-5.1); Alkaline Phosphatase 49 U/L (38-126); Anion Gap -1 mmol/L (8-16); Aspartate Amino Transferase 144 U/L (14-36); Bilirubin,Total 0.4 mg/dL (0.2-1.3); Blood Urea Nitrogen 14 mg/dL (7-17); Calcium 8.3 mg/dL (8.4-10.2); Carbon Dioxide 32 mmol/L (22-30); Chloride 102 mmol/L (98-107); Estimated CRCL calculation 39 ml/min; Estimated Glomerular Filt Rate > 60; Glucose 120 mg/dL (65-105); Magnesium 2.3 mg/dL (1.6-2.3); Potassium 3.7 mmol/L (3.4-5.0); Sodium 133 mmol/L (137-145)
[2021-03-10] MEDS: LEVOTHYROXINE SODIUM 25 MCG TABLET PO (06:07)
[2021-03-10] MEDS: CLOPIDOGREL BISULFATE 75 MG TABLET PO (09:20)
[2021-03-10] MEDS: ATORVASTATIN 40 MG TABLET PO (09:20)
[2021-03-10] MEDS: GABAPENTIN 300 MG CAPSULE 900 MG PO ×2 (09:20→17:12)
[2021-03-10] MEDS: ASPIRIN 81 MG ENTERIC TABLET PO (09:20)
[2021-03-10] MEDS: METOPROLOL TARTRATE 12.5 MG TABLET PO ×2 (09:21→20:32)
[2021-03-10] MEDS: PANTOPRAZOLE 40 MG TABLET PO ×2 (09:21→20:32)
[2021-03-10 09:26] LABS: Glucose Point of Care 105 mg/dl (65-105)
--- NOTE | 2021-03-10 10:20 | PM.PNCARD ---
Progress Note: A&P Additional Plan 80-year-old lady with: Ischemic heart disease presenting with significant upper GI bleeding from gastric ulcer disease. In this setting she had a significant troponin rise is now stable. She is on dual anti-platelet therapy as well as a beta-elizabeth at this time. Because of her reduced ejection fraction I am going to add angiotensin receptor elizabeth to today. I am going to withdraw clopidogrel because of the significant hemorrhagic event with which she presented and the fact that there is no recent PCI and no plans to bring this patient to the lab analyst. 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 Patient had been clinically stable until admission this time with significant upper GI bleeding related to gastric ulcers. Patient flutter hemoglobin down to 6 g required packed red cell transfusion is now recovering in ICU 12 and is asymptomatic this morning. In this setting she obviously had a myocardial infarction with troponin rise but did not have any chest pain. ECG was transiently showing junctional rhythm as well. Echocardiogram now shows left ventricular ejection fraction is 35%. This morning she is feeling well and join her breakfast and does not have any complaints. Exam Const: General: comfortable and no acute distress HENMT: Mouth: Yes moist mucous membranes Eyes: Sclera: sclerae normal Pupils: Equal, round and reactive pupils present Neck: Neck: supple and no JVD Thyroid: thyroid normal Resp: Effort & Inspection: normal respiratory effort Auscultation: clear to auscultation bilaterally Cardio: Rate: regular rate Rhythm: regular rhythm GI: GI Palp: Yes Soft to palpation Auscultation: normal bowel sounds Skin: General skin exam: normal color Neuro: Cognition (Neuro): normal cognition Extrem: Other: Good arterial perfusion, no edema. Objective Data Vital Signs Vital Signs: Vital Signs - 24 hr 03/09/21 11:40 03/09/21 12:00 03/09/21 14:00 Temperature 36.7 C Pulse Rate 77 76 70 Respiratory Rate 16 12 Blood Pressure 98/74 L 112/66 Pulse Oximetry 95 92 94 03/09/21 16:00 03/09/21 18:00 03/09/21 20:00 Temperature 37.0 C Pulse Rate 77 80 66 Respiratory Rate 13 Blood Pressure 133/92 H Pulse Oximetry 92 03/09/21 20:30 03/09/21 20:56 03/09/21 22:30 Temperature 37.2 C Pulse Rate 68 75 Respiratory Rate 22 H Blood Pressure 109/60 89/49 L Pulse Oximetry 93 03/09/21 22:43 03/09/21 23:28 03/10/21 00:00 Temperature Pulse Rate 74 71 Respiratory Rate Blood Pressure 98/50 L Pulse Oximetry 03/10/21 00:45 03/10/21 02:00 03/10/21 04:00 Temperature 37.6 C 36.5 C Pulse Rate 80 77 69 Respiratory Rate 21 H 12 Blood Pressure 128/71 120/62 Pulse Oximetry 91 95 03/10/21 06:00 03/10/21 08:00 03/10/21 09:21 Temperature 36.9 C Pulse Rate 72 80 78 Respiratory Rate 20 Blood Pressure 117/57 L Pulse Oximetry 100 Intake/Output Intake/Output: Intake & Output 03/07/21 03/08/21 03/09/21 03/10/21 23:59 23:59 23:59 23:59 Intake Total 2930 2320 2110 750 Output Total 763 412 8661 1250 Balance 2684 2693 -820 -106 Meds/Results Medications: Active Medications Generic Name Dose Route Start Last Admin Trade Name Freq PRN Reason Stop Dose Admin Aspirin 81 mg 03/10/21 09:00 03/10/21 09:20 Aspirin 81 Mg Enteric Tablet PO 81 mg QAM FELICITAS Administration Atorvastatin Calcium 40 mg 03/09/21 09:00 03/10/21 09:20 Atorvastatin 40 Mg Tablet PO 40 mg DAILY FELICITAS Administration Clopidogrel Bisulfate 75 mg 03/09/21 09:00 03/10/21 09:20 Lj
[2021-03-10] MEDS: LOSARTAN POTASSIUM 25 MG TABLET PO (11:37)
--- NOTE | 2021-03-10 11:49 | PM.IMPN ---
Progress Note: A&P Assessment and Plan (1) Gastric ulcer: Code(s): K25.9 - Gastric ulcer, unspecified as acute or chronic, without hemorrhage or perforation Status: Acute (2) Type II diabetes mellitus with complication: Code(s): E11.8 - Type 2 diabetes mellitus with unspecified complications Status: Acute (3) CAD (coronary artery disease): Code(s): I25.10 - Atherosclerotic heart disease of [place] coronary artery without angina pectoris Status: Acute (4) STEMI (ST elevation myocardial infarction): Code(s): I21.3 - ST elevation (STEMI) myocardial infarction of unspecified site Status: Acute (5) Metabolic acidosis: Code(s): E87.2 - Acidosis Status: Acute (6) GIL (acute kidney injury): Code(s): N17.9 - Acute kidney failure, unspecified Status: Acute (7) Hypotension: Code(s): I95.9 - Hypotension, unspecified Status: Acute (8) Acute blood loss anemia: Code(s): D62 - Acute posthemorrhagic anemia Status: Acute (9) Melena: Code(s): K92.1 - Melena Status: Acute (10) Acute GI bleeding: Code(s): K92.2 - Gastrointestinal hemorrhage, unspecified Status: Acute Assessment and Plan: REPEAT H&H IS 7.2 FROM 7 POINT TRANSFUSE NEEDED HOLDING PLAVIX AND ASPIRIN GI CONSULT SUPPORTIVE CARE 03/08/21 Hgb stable no further GI bleeding, ulcers found on EGD without active bleeding (11) Anemia: Qualifiers: Anemia type: unspecified type Qualified Code(s): D64.9 - Anemia, unspecified Code(s): D64.9 - Anemia, unspecified Status: Acute (12) Type 2 diabetes mellitus without complication: Code(s): E11.9 - Type 2 diabetes mellitus without complications Status: Acute Assessment and Plan: CURRENTLY NPO ACCU-CHEKS Q.6 HOURS INSULIN SLIDING SCALE NEEDED ON NO MEDS CONTROLLED WITH DIET (13) Peripheral neuropathy, idiopathic: Code(s): G60.9 - Hereditary and idiopathic neuropathy, unspecified Status: Acute Assessment and Plan: CONTINUE GABAPENTIN (14) PVD (peripheral vascular disease): Code(s): I73.9 - Peripheral vascular disease, unspecified Status: Acute Assessment and Plan: STABLE CONTINUE TO MONITOR (15) Hypothyroidism, unspecified: Code(s): E03.9 - Hypothyroidism, unspecified Status: Acute (16) Chronic renal insufficiency, stage III (moderate): Code(s): N18.3 - Chronic kidney disease, stage 3 (moderate) Status: Acute Assessment and Plan: CONTINUE TO MONITOR DAILY INTAKE AND OUTPUT (17) Systolic heart failure secondary to coronary artery disease: Code(s): I50.20 - Unspecified systolic (congestive) heart failure; I25.10 - Atherosclerotic heart disease of [place] coronary artery without angina pectoris Status: Acute (18) Transaminitis: Code(s): R74.01 - Elevation of levels of liver transaminase levels Status: Acute Additional Plan 03/07/21 15:50 Chief Complaint: ABDOMINAL PAIN Narrative: THIS IS AN 80-YEAR-OLD FEMALE WITH PAST MEDICAL HISTORY SIGNIFICANT FOR Allergic rhinitis ,Atherosclerotic heart disease of [place] coronary artery without angina pectoris,Chronic low back pain,Chronic renal insufficiency, stage III (moderate),Hypothyroidism, Mixed hyperlipidemia ,Peripheral neuropathy, idiopathic,PVD (peripheral vascular disease) ,Thoracic kyphosis ,Type 2 diabetes mellitus without complication,Vitamin D deficiency. PATIENT PRESENTS TO EMERGENCY ROOM DUE TO ABDOMINAL PAIN FOR 3 DAYS OR SO BLACK STOOLS GENERALIZED FATIGUE WEAKNESS POOR APPETITE, NO SYNCOPE OR NEAR SYNCOPE HAD SOME NAUSEA AND VOMITING BUT NO HEMATEMESIS. NO FEVERS NO RIGORS NO CHILLS NO COUGH NO SPUTUM PRODUCTION PATIENT WAS FOUND TO HAVE A HEMOGLOBIN OF 7.7. A CT OF ABDOMEN AND PELVIS WAS UNREMARKABLE. 03/07 today patient was seen by GI and taken to GI lab had a EGD was essentially normal without any
--- NOTE | 2021-03-10 17:02 | WPDGIPROGNO ---
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 or equivalent (2) Melena: Code(s): K92.1 - Melena Status: Acute Assessment and Plan: continue to monitor for more signs of bleeding but resolved with stable hb after blood transfusion (3) Acute blood loss anemia: Code(s): D62 - Acute posthemorrhagic anemia Status: Acute Assessment and Plan: hb stable, no more signs of gib (4) STEMI (ST elevation myocardial infarction): Code(s): I21.3 - ST elevation (STEMI) myocardial infarction of unspecified site Status: Acute Assessment and Plan: medical treatment by cardiology exacerbated by severe anemia, hypotension and recent GIB no plan for cardiac cath, doing well (5) Hypotension: Code(s): I95.9 - Hypotension, unspecified Status: Acute Assessment and Plan: resolved (6) CAD (coronary artery disease): Code(s): I25.10 - Atherosclerotic heart disease of [place] coronary artery without angina pectoris Status: Acute (7) Type II diabetes mellitus with complication: Code(s): E11.8 - Type 2 diabetes mellitus with unspecified complications Status: Acute Subjective Date/time seen: 03/10/21 17:02 Interval history: eating, no abdominal pain, in good spirits, denies chest pain Review of Systems Review of Systems: All systems reviewed & are unremarkable except as noted in HPI and below Exam Const: General: comfortable Other: elderly frail HENMT: General nose exam: Normal nares present Eyes: General: appearance normal, both eyes and all related structures Neck: Neck: supple Resp: Auscultation: clear to auscultation bilaterally Cardio: Rate: regular rate GI: Inspection: non-distended GI Palp: No Tenderness to palpation present (GI) and No Guarding due to palpation present (GI) Auscultation: normal bowel sounds Urinary Catheter: Urinary Catheter: patent and draining Skin: General skin exam: no erythema Neuro: Speech: normal speech Motor exam (neuro): Normal motor muscle tone present throughout Extrem: General: normal to inspection Psych: Mental Status: mental status grossly normal Objective Data Vital Signs Vital Signs: Vital Signs - 24 hr 03/09/21 18:00 03/09/21 20:00 03/09/21 20:30 Temperature 99.0 F Pulse Rate 80 66 68 Respiratory Rate 22 H Blood Pressure 109/60 Pulse Oximetry 93 03/09/21 20:56 03/09/21 22:30 03/09/21 22:43 Temperature Pulse Rate 75 74 Respiratory Rate Blood Pressure 89/49 L Pulse Oximetry 03/09/21 23:28 03/10/21 00:00 03/10/21 00:45 Temperature 99.6 F Pulse Rate 71 80 Respiratory Rate 21 H Blood Pressure 98/50 L 128/71 Pulse Oximetry 91 03/10/21 02:00 03/10/21 04:00 03/10/21 06:00 Temperature 97.7 F Pulse Rate 77 69 72 Respiratory Rate 12 Blood Pressure 120/62 Pulse Oximetry 95 03/10/21 08:00 03/10/21 09:21 03/10/21 10:00 Temperature 98.4 F Pulse Rate 80 78 87 Respiratory Rate 20 Blood Pressure 117/57 L Pulse Oximetry 100 03/10/21 12:00 03/10/21 14:00 03/10/21 16:00 Temperature 98.0 F 98.2 F Pulse Rate 73 61 73 Respiratory Rate 14 22 H Blood Pressure 119/67 135/70 Pulse Oximetry 97 96 Intake/Output Intake/Output: Intake & Output 03/07/21 03/08/21 03/09/21 03/10/21 23:59 23:59 23:59 23:59 Intake Total 2930 2320 2110 990 Output Total 643 494 5044 1250 Balance 6348 3994 -494 -108 Meds/Results Medications: Active Medications
[2021-03-11] VITALS (10 sets, daily range): BP systolic 115–133; BP diastolic 68–76; PULSE 67–92; RESP 16–24; TEMP 36.8–37.6; O2SAT 93–100
[2021-03-11 04:45] LABS: Basophils Percent Auto 0.3 % (0.2-1.2); Eosinophils Absolute Auto 0.3 K/mm3 (0-0.3); Eosinophils Percent Auto 3.8 % (0-4.4); Hematocrit 28.9 % (37.0-47.0); Hemoglobin 9.5 g/dL (12.0-15.0); Immature Granulocyte Absolute 0.02 K/mm3 (0.00-0.031); Immature Granulocyte Percent A 0.3 % (0-0.5); Lymphocytes Percent Auto 13.6 % (18.3-44.2); Mean Corpuscular HGB Conc 32.9 g/dl (32-36); Mean Corpuscular Hemoglobin 30.4 pg (26-34); Mean Corpuscular Volume 92.6 fl (80-100); Mean Platelet Volume 10.8 fl (7.4-10.4); Monocytes Absolute Auto 0.7 K/mm3 (0.1-0.6); Monocytes Percent Auto 8.9 % (2.6-8.5); Neutrophils Absolute Auto 5.4 K/mm3 (1.3-6.7); Neutrophils Percent Auto 73.1 % (45.5-73.1); Platelet Count Result 169 k/mm3 (150-375); Red Blood Count 3.12 M/mm3 (4.2-5.4); Red Cell Distribution Width 14.7 % (11.5-14.5); White Blood Count 7.3 K/mm3 (4.5-10.0)
[2021-03-11 04:54] LABS: Alanine Aminotransferase 99 U/L (4-35); Albumin Level 2.8 g/dL (3.5-5.1); Alkaline Phosphatase 49 U/L (38-126); Anion Gap 0 mmol/L (8-16); Aspartate Amino Transferase 76 U/L (14-36); Bilirubin,Total 0.3 mg/dL (0.2-1.3); Blood Urea Nitrogen 16 mg/dL (7-17); Calcium 8.4 mg/dL (8.4-10.2); Carbon Dioxide 31 mmol/L (22-30); Chloride 102 mmol/L (98-107); Estimated CRCL calculation 39 ml/min; Estimated Glomerular Filt Rate > 60; Glucose 110 mg/dL (65-105); Magnesium 2.1 mg/dL (1.6-2.3); Potassium 3.8 mmol/L (3.4-5.0); Sodium 133 mmol/L (137-145)
[2021-03-11] MEDS: LEVOTHYROXINE SODIUM 25 MCG TABLET PO (06:20)
[2021-03-11] MEDS: GABAPENTIN 300 MG CAPSULE 900 MG PO (08:42)
[2021-03-11] MEDS: METOPROLOL TARTRATE 12.5 MG TABLET PO (08:42)
[2021-03-11] MEDS: PANTOPRAZOLE 40 MG TABLET PO (08:42)
[2021-03-11] MEDS: LOSARTAN POTASSIUM 25 MG TABLET PO (08:42)
[2021-03-11] MEDS: ATORVASTATIN 40 MG TABLET PO (08:42)
[2021-03-11] MEDS: ASPIRIN 81 MG ENTERIC TABLET PO (08:43)
--- NOTE | 2021-03-11 09:07 | PM.PNCARD ---
Progress Note: A&P Additional Plan 80-year-old lady with type 2 myocardial infarction in the setting of severe anemia related to gastric ulcer/upper GI bleeding. She is now clinically stable. She is off of dual anti-platelet therapy in this setting. I added losartan because of reduced ejection fraction. She is stable from the cardiac perspective for discharge. Patient is asking me questions as to whether she is going home or to a rehab facility. I told her these are decisions the primary team will make. I will ensure that appropriate follow-up in my office is scheduled for her. Ace Darnell MD [facility] Subjective Date/time seen: Date of service: 03/11/21 09:07 Interval history: 80-year-old lady with: History of coronary artery disease remote history of PCI to the mid circumflex about 11 years ago. Admitted to the hospital with severe GI bleeding related to gastric ulcers. She is now stabilized and transfused. In this setting as I mentioned above I discontinued dual anti-platelet therapy. In the setting of severe anemia she did have a significant troponin rise and evidence of type 2 AMI. The patient is asymptomatic today feels well and appears to be a good candidate for discharge. I did and ARB therapy yesterday because of reduced ejection fraction at 35%. Exam Const: General: comfortable and no acute distress HENMT: Mouth: Yes moist mucous membranes Eyes: Sclera: sclerae normal Pupils: Equal, round and reactive pupils present Neck: Neck: supple and no JVD Thyroid: thyroid normal Resp: Effort & Inspection: normal respiratory effort Auscultation: clear to auscultation bilaterally Cardio: Rate: regular rate Rhythm: regular rhythm GI: GI Palp: Yes Soft to palpation Auscultation: normal bowel sounds Skin: General skin exam: normal color Neuro: Cognition (Neuro): normal cognition Extrem: General: normal to inspection Objective Data Vital Signs Vital Signs: Vital Signs - 24 hr 03/10/21 09:21 03/10/21 10:00 03/10/21 12:00 Temperature 36.7 C Pulse Rate 78 87 73 Respiratory Rate 14 Blood Pressure 119/67 Pulse Oximetry 97 03/10/21 14:00 03/10/21 16:00 03/10/21 18:00 Temperature 36.8 C Pulse Rate 61 73 90 Respiratory Rate 22 H Blood Pressure 135/70 Pulse Oximetry 96 03/10/21 20:00 03/10/21 20:32 03/10/21 22:00 Temperature 36.8 C Pulse Rate 76 78 80 Respiratory Rate 12 Blood Pressure 144/81 H Pulse Oximetry 95 03/11/21 00:00 03/11/21 01:59 03/11/21 04:00 Temperature 37.6 C 37.1 C Pulse Rate 83 67 83 Respiratory Rate 24 H 16 Blood Pressure 132/72 133/68 Pulse Oximetry 94 93 03/11/21 05:59 03/11/21 08:42 Temperature Pulse Rate 68 77 Respiratory Rate Blood Pressure Pulse Oximetry Intake/Output Intake/Output: Intake & Output 03/08/21 03/09/21 03/10/21 03/11/21 23:59 23:59 23:59 23:59 Intake Total 2320 2110 1530 450 Output Total 725 2250 2800 2100 Balance 2992 -725 -5975 -7112 Meds/Results Medications: Active Medications Generic Name Dose Route Start Last Admin Trade Name Freq PRN Reason Stop Dose Admin Aspirin 81 mg 03/10/21 09:00 03/11/21 08:43 Aspirin 81 Mg Enteric Tablet PO 81 mg QAM FELICITAS Administration Atorvastatin Calcium 40 mg 03/09/21 09:00 03/11/21 08:42 Atorvastatin 40 Mg Tablet PO 40 mg DAILY FELICITAS Administration Dextrose 12.5 gm 03/08/21 07:24 Dextrose 50% 25 Gm/50 Ml Syringe IV PUSH PRN PRN Hypoglycemia Protocol Gabapentin 900 mg 03/07/21 09:00 03/11/21 08:42 Gabapentin 300 Mg Capsule PO 900 mg BID FELICITAS Administration Glucagon 1 mg 03/08/21 07:24 Glucagon For Inj 1 Mg Vial IM PRN PRN Hypoglycemia Protocol Glucose 15 gm 03/08/21 07:24 Glucose Oral Gel 15 Gm Of Glucse In 37.5 Gm Tube PO PRN PRN Hypoglycemia Protocol Dextrose 1,000 mls @ 100 mls/hr 03/08/21 07:24 Dextrose 5% 1,000 Ml IVPB PRN PRN
[2021-03-11] MEDS: METOPROLOL SUCCINATE EXT REL 25 MG TABCR PO (10:36)
--- NOTE | 2021-03-11 11:04 | PM.DS ---
DS: Admitting Diagnosis Admitting Diagnosis Admitting Diagnosis: (1) Acute GI bleeding: Code(s): K92.2 - Gastrointestinal hemorrhage, unspecified Status: Acute Assessment and Plan: (2) Type 2 diabetes mellitus without complication: Code(s): E11.9 - Type 2 diabetes mellitus without complications Status: Acute Assessment and Plan: (3) Peripheral neuropathy, idiopathic: Code(s): G60.9 - Hereditary and idiopathic neuropathy, unspecified Status: Acute Assessment and Plan: (4) PVD (peripheral vascular disease): Code(s): I73.9 - Peripheral vascular disease, unspecified Status: Acute Assessment and Plan: (5) Chronic renal insufficiency, stage III (moderate): Code(s): N18.3 - Chronic kidney disease, stage 3 (moderate) Status: Acute Assessment and Plan: (6) Atherosclerotic heart disease of [place] coronary artery without angina pectoris: Code(s): I25.10 - Atherosclerotic heart disease of [place] coronary artery without angina pectoris Status: Acute Assessment and Plan: DS: Discharge Diagnosis Discharge Diagnosis (1) Systolic heart failure secondary to coronary artery disease: Code(s): I50.20 - Unspecified systolic (congestive) heart failure; I25.10 - Atherosclerotic heart disease of [place] coronary artery without angina pectoris Status: Acute (2) Gastric ulcer: Code(s): K25.9 - Gastric ulcer, unspecified as acute or chronic, without hemorrhage or perforation Status: Acute (3) Type II diabetes mellitus with complication: Code(s): E11.8 - Type 2 diabetes mellitus with unspecified complications Status: Acute (4) CAD (coronary artery disease): Code(s): I25.10 - Atherosclerotic heart disease of [place] coronary artery without angina pectoris Status: Acute (5) STEMI (ST elevation myocardial infarction): Code(s): I21.3 - ST elevation (STEMI) myocardial infarction of unspecified site Status: Acute (6) Metabolic acidosis: Code(s): E87.2 - Acidosis Status: Acute (7) Hypotension: Code(s): I95.9 - Hypotension, unspecified Status: Acute (8) GIL (acute kidney injury): Code(s): N17.9 - Acute kidney failure, unspecified Status: Acute (9) Acute blood loss anemia: Code(s): D62 - Acute posthemorrhagic anemia Status: Acute (10) Melena: Code(s): K92.1 - Melena Status: Acute (11) Acute GI bleeding: Code(s): K92.2 - Gastrointestinal hemorrhage, unspecified Status: Acute (12) Transaminitis: Code(s): R74.01 - Elevation of levels of liver transaminase levels Status: Acute (13) Memory loss: Code(s): R41.3 - Other amnesia Status: Acute (14) Chronic renal insufficiency, stage III (moderate): Code(s): N18.3 - Chronic kidney disease, stage 3 (moderate) Status: Acute (15) Hypothyroidism, unspecified: Code(s): E03.9 - Hypothyroidism, unspecified Status: Acute (16) Mixed hyperlipidemia: Code(s): E78.2 - Mixed hyperlipidemia Status: Acute (17) PVD (peripheral vascular disease): Code(s): I73.9 - Peripheral vascular disease, unspecified Status: Acute (18) Peripheral neuropathy, idiopathic: Code(s): G60.9 - Hereditary and idiopathic neuropathy, unspecified Status: Acute (19) Type 2 diabetes mellitus without complication: Code(s): E11.9 - Type 2 diabetes mellitus without complications Status: Acute DS: Summary Hospital Course Reason for hospitalization: abdominal pain Hospital Course: 03/07/21 15:50 Chief Complaint: ABDOMINAL PAIN Narrative: THIS IS AN 80-YEAR-OLD FEMALE WITH PAST MEDICAL HISTORY SIGNIFICANT FOR Allergic rhinitis ,Atherosclerotic heart disease of [place] coronary artery without angina pectoris,Chronic low back pain,Chronic renal insufficiency, stage III (moderate),Hypothyroidism,
--- NOTE | 2021-03-11 14:25 | PCPTNOTE ---
Unable to see patient for PT this afternoon due to patient out for CT.
== END 2021-03-11 16:00 | disposition swing bed (61) | DRG 377 ==
LOC: ANHED 21:46 → ANH3MED 22:20 → ANHICU 03-08 03:31 → ANH3MED 03-14 10:01 → ANHICU 03-14 10:01
PROVIDERS: Emergency Medicine; Family Medicine; Internal Medicine; Internal Medicine Cardiovascular Disease; Internal Medicine Gastroenterology; Physician Assistant; Admitting Provider Internal Medicine; Emergency Provider Emergency Medicine; PCP Family Medicine; Visit Provider Hospitalist
PROC: 0DJ08ZZ Inspection of Upper Intestinal Tract, Via Natural or Artificial Opening Endoscopic (ICD-10-PCS; CPT 43235; principal; 2021-03-07 13:15)
DX: K25.0 Acute gastric ulcer with hemorrhage (principal); I21.3 ST elevation (STEMI) myocardial infarction of unspecified site; I50.21 Acute systolic (congestive) heart failure; E87.2 Acidosis; N17.9 Acute kidney failure, unspecified; D62 Acute posthemorrhagic anemia; K29.71 Gastritis, unspecified, with bleeding; K44.9 Diaphragmatic hernia without obstruction or gangrene; E11.42 Type 2 diabetes mellitus with diabetic polyneuropathy; E11.22 Type 2 diabetes mellitus with diabetic chronic kidney disease; N18.30 Chronic kidney disease, stage 3 unspecified; R00.1 Bradycardia, unspecified; I44.30 Unspecified atrioventricular block; E11.51 Type 2 diabetes mellitus with diabetic peripheral angiopathy without gangrene; I73.9 Peripheral vascular disease, unspecified; I25.10 Atherosclerotic heart disease of native coronary artery without angina pectoris; I95.9 Hypotension, unspecified; E03.9 Hypothyroidism, unspecified; E78.2 Mixed hyperlipidemia; E55.9 Vitamin D deficiency, unspecified; M40.294 Other kyphosis, thoracic region; Z95.5 Presence of coronary angioplasty implant and graft
CPT/HCPCS: 36415; 36430; 36600; 70450; 71045; 74177; 80048; 80053; 81001; 82805; 82948; 83605; 83690; 83735; 83880; 84484; 85014; 85018; 85025; 85027; 85055; 85610; 85730; 86850; 86900; 86901; 86923; 87040; 87081; 87086; 88305; 88342; 93005; 93306; 96361; 96365; 96375; 96376; 97161; 97165; 97530; 97535; 99285; A9270; C9113; G0378; J0131; J0461; J1200; J2270; J2370; J2405; J2543; J2704; J2765; J7030; J7120; P9016; Q9967

== ENCOUNTER 2021-05-26 22:47 | Inpatient (IN) | payer MEDICARE, BC, SELFPAY ==
--- NOTE | ~2021-05-26 | XR_ITS ---
EXAMINATION: XR chest 1V portable DATE: 05/26/2021 23:49 INDICATION: Shortness of breath. TECHNIQUE: A single frontal view of the chest was obtained. COMPARISON: Chest single view 03/08/2021, CT abdomen and pelvis 03/06/2021 FINDINGS: There are small pleural effusions. There is a diffuse interstitial pattern in the lungs. Th ere are airspace opacities in the perihilar regions and at the lung bases. No pneumothorax. Cardiomeg yasemin is noted. IMPRESSION: 1. Diffuse lung disease, likely moderate pulmonary edema. 2. Small pleural effusions. 3. Cardiomegaly. Reviewed, dictated and finalized at location A.
--- NOTE | ~2021-05-26 | US_ITS ---
EXAMINATION:US venous doppler LE BI INDICATION:Leg edema TECHNIQUE: Multiple grayscale, color flow and Doppler images of the right and left lower extremity de ep venous systems were obtained and reviewed. COMPARISON:No prior studies for comparison. FINDINGS: The common femoral, superficial femoral and popliteal veins demonstrate normal respiratory variation, augmentation and compressibility. Color flow is also seen within the posterior tibial, pe roneal, greater saphenous and profunda veins. IMPRESSION: 1: No lower extremity deep venous thrombosis. Reviewed, dictated and finalized at location A.
[2021-05-26 23:09] VITALS: BP 145/76; PULSE 72; RESP 27; TEMP 36.7; O2SAT 97
--- NOTE | 2021-05-26 23:27 | ECG_ITS ---
Measurements Intervals [place] Rate: 71 P: 60 [place]: 143 QRS: 57 QRSD: 139 T: 200 QT: 420 QTc: 458 Interpretive Statements SINUS OR ECTOPIC ATRIAL RHYTHM INTRAVENTRICULAR CONDUCTION DELAY CANNOT RULE OUT SEPTAL INFARCT, AGE INDETERMINATE ST-T WAVE ABNORMALITY IN LAT/HIGH LAT LEADS- CONSIDER ISCHEMIA BASELINE ARTIFACT- II, III, AVF ABNORMAL ECG Electronically Signed On 05-27-2021 8:06:07 CDT by Anatoliy Bolton D.O.
--- NOTE | 2021-05-26 23:29 | ED.SOB ---
HPI - SOB/Dyspnea General Chief Complaint: Shortness of Breath/Dyspnea Stated Complaint: sob Time Seen by Provider: 05/26/21 23:20 History of Present Illness HPI Narrative: 81 yo female presents to the ED for SOB. She has had SOB, orthopnea for weeks. Much worse over the past few days. unable to sleep due to this. Assocaited with BLE edema and mild cough. This is a new problem since [place] in february. No chest pain, fever, dark/bloody stools. Related Data Home Medications Medication Instructions Recorded Confirmed amiodarone 200 mg tablet 200 mg PO DAILY 05/04/21 05/27/21 apixaban 2.5 mg tablet 2.5 mg PO BID 05/04/21 05/27/21 furosemide 40 mg tablet 40 mg PO QAM 05/04/21 05/27/21 isosorbide mononitrate 30 mg 30 mg PO DAILY tablet 05/04/21 05/27/21 tablet,extended release 24 hr potassium chloride 20 mEq 20 meq PO DAILY tablet 05/04/21 05/27/21 tablet,extended release sucralfate 100 mg/mL oral 1 g PO QID ml 05/04/21 05/27/21 suspension atorvastatin 40 mg PO DAILY 05/27/21 05/27/21 metoprolol succinate 25 mg PO DAILY 05/27/21 05/27/21 Allergies Allergy/AdvReac Type Severity Reaction Status Date / Time No Known Allergies Verified 05/04/21 11:39 Review of Systems Review of Systems: All systems reviewed & are unremarkable except as noted in HPI and below Constitutional: Constitutional: Denies fever(s) and Reports weakness ENT: Denies dizziness Cardiovascular: Cardiovascular: Denies chest pain Respiratory: Respiratory: Reports as per HPI Gastrointestinal: Gastrointestinal: Denies nausea and Denies vomiting Genitourinary: Genitourinary: Reports no additional female genitourinary complaints Neurologic: Denies confusion, Denies dizziness and Reports weakness [facility] Past Medical History Medical History Acute blood loss anemia Allergic rhinitis Atherosclerotic heart disease of [place] coronary artery without angina pectoris Atrial fibrillation Chronic low back pain without sciatica Chronic renal insufficiency, stage III (moderate) Gastric ulcer Hypothyroidism, unspecified Melena Mixed hyperlipidemia Peripheral neuropathy, idiopathic PVD (peripheral vascular disease) Thoracic kyphosis Type 2 diabetes mellitus without complication Vitamin D deficiency Surgical History Surgical History Fracture of left hip requiring operative repair H/O heart artery stent History of carpal tunnel surgery of right wrist History of cataract surgery History of inguinal hernia repair Interdigital neuroma of left foot Rotator cuff arthropathy of right shoulder Family History Family History Mother Family history of heart disease in male family member before age 55 Hypertension Father Family history of lung cancer Sibling Family history of heart disease in male family member before age 55 Other Family history of cardiovascular disease Family history of coronary artery disease Social History Social History Smoking status: Never smoker Second hand tobacco smoke exposure: No Alcohol intake: never Substance use: never Substance use type: does not use Gender identity (if verbalized by the patient): Female Spiritual care concerns: No Exam Const: General: no acute distress and ill appearing acutely and chronically Orientation/consciousness: patient oriented x3 HENMT: Head: normal to inspection Neck: Neck: normal visual inspection Resp: Effort & Inspection: tachypneic Auscultation: crackles Cardio: Rate: regular rate Rhythm: regular rhythm GI: GI Palp: Yes Soft to palpation and No Tenderness to palpation present (GI) Skin: General skin exam: pallor Neuro: General: patient oriented x3, moves all extremities and no focal motor deficits Speech: normal speech Extrem:
[2021-05-27] VITALS (18 sets, daily range): BP systolic 97–139; BP diastolic 44–90; PULSE 57–87; RESP 16–36; TEMP 36.3–36.6; O2SAT 74–97; BMI 26.4
[2021-05-27] MEDS: NITROGLYCERIN OINTMENT 1 INCH DOSE 0.5 INCH TRANSDERM ×5 (00:11→23:59)
[2021-05-27] MEDS: FUROSEMIDE INJ 40 MG/4 ML VIAL IV PUSH ×3 (00:12→20:47)
[2021-05-27 00:15] LABS: Alveolar/Arterial O2 Gradient 115.3 mmHg; Base Excess ABG 1.8 mEq/l (+/-2.0); Fractional Inspired Oxygen 32 %; Oxygen Content ABG 12.9 %vol (16.0-22.0); Oxyhemoglobin 90.7 % THb (90.0-100.0); PCO2 ABG 39.1 mmHg (35.0-45.0); PO2 ABG 67.1 mmHg (80.0-100.0); Total Hemoglobin 10.1 g/dL (12.0-18.0)
[2021-05-27 00:16] LABS: Device NASAL CANNULA; Modified Allen's Test Pass; Site Drawn RIGHT RADIAL
[2021-05-27 00:23] LABS: Basophils Percent Auto 0.1 % (0.2-1.2); Eosinophils Percent Auto 0.1 % (0-4.4); Hemoglobin 8.9 g/dL (12.0-15.0); Immature Granulocyte Absolute 0.04 K/mm3 (0.00-0.031); Immature Granulocyte Percent A 0.5 % (0-0.5); Lymphocytes Absolute Auto 0.71 K/mm3 (0.9-3.2); Lymphocytes Percent Auto 8.2 % (18.3-44.2); Mean Corpuscular HGB Conc 29.7 g/dl (32-36); Mean Corpuscular Hemoglobin 27.6 pg (26-34); Mean Corpuscular Volume 92.9 fl (80-100); Mean Platelet Volume 11.5 fl (7.4-10.4); Monocytes Absolute Auto 0.4 K/mm3 (0.1-0.6); Monocytes Percent Auto 5.1 % (2.6-8.5); Neutrophils Absolute Auto 7.5 K/mm3 (1.3-6.7); Platelet Count Result 222 k/mm3 (150-375); Red Blood Count 3.23 M/mm3 (4.2-5.4); Red Cell Distribution Width 16.6 % (11.5-14.5); White Blood Count 8.7 K/mm3 (4.5-10.0)
[2021-05-27 00:26] LABS: Hypochromasia 1+ (NORMAL); Platelet Estimate Adequate (Adequate)
[2021-05-27 00:32] LABS: INR 1.2; Prothrombin Time 15.4 Seconds (11.1-14.7)
[2021-05-27 00:33] LABS: Partial Thromboplastin Time 34.2 SECONDS (22.3-36.8)
[2021-05-27 00:37] LABS: Alanine Aminotransferase 84 U/L (4-35); Albumin Level 3.8 g/dL (3.5-5.1); Alkaline Phosphatase 90 U/L (38-126); Anion Gap 11 mmol/L (8-16); Aspartate Amino Transferase 82 U/L (14-36); Bilirubin,Total 0.3 mg/dL (0.2-1.3); Blood Urea Nitrogen 25 mg/dL (7-17); Carbon Dioxide 29 mmol/L (22-30); Chloride 92 mmol/L (98-107); Estimated CRCL calculation 25 ml/min; Estimated Glomerular Filt Rate 47; Glucose 155 mg/dL (65-110); Potassium 3.7 mmol/L (3.4-5.0); Sodium 132 mmol/L (137-145)
[2021-05-27 00:58] LABS: NT Pro B Type Natriuretic Pept 15400 pg/mL (5-100); Troponin I 0.974 ng/mL (0.000-0.034)
--- NOTE | 2021-05-27 03:13 | PM.IMHP ---
H&P: HPI History of Present Illness Date/Time: 05/27/21 03:13 Chief Complaint: Shortness of breath Narrative: This is an 81-year-old female with past medical history significant for STEMI, coronary artery disease status post drug-eluting stent placement back in 2010, bleeding peptic ulcer, cholecystitis status post drainage patient had recent hospitalization to various centers for mentioned issues patient had spent a few weeks at [facility] swing bed and then discharged home with home health and therapy. Patient comes in today after shortness of breath for the last for few days and chest pressure she denies any dizziness any lightheadedness any palpitations she has bilateral feet swelling no cough no sputum production she also has PND and orthopnea no syncope or near syncope no fevers no rigors no chills. Preliminary workup has been significant for elevated troponin and EKG with new changes T-wave and ST segment inversion, elevated brain natriuretic peptide at 15,800 chest x-ray significant for pulmonary edema. Patient is being admitted for further evaluation and treatment. Review of Systems Review of Systems: Worsening shortness of breath and chest pressure Constitutional: Constitutional: Denies chills, Denies fatigue, Denies fever(s) and Denies malaise Eyes: Eyes: Denies change in vision ENT: Denies dysphagia, Denies nasal congestion, Denies nasal discharge, Denies nasal obstruction and Denies odynophagia Cardiovascular: Cardiovascular: Reports chest pain, Denies irregular heart rhythm, Denies claudication, Reports leg edema, Denies lightheadedness, Denies radiating jaw, neck or arm pain, Denies palpitations, Reports dyspnea, Reports orthopnea and Reports paroxysmal nocturnal dyspnea Respiratory: Respiratory: Denies cough Gastrointestinal: Gastrointestinal: Denies diarrhea, Denies nausea and Denies vomiting Genitourinary: Genitourinary: Denies no additional female genitourinary complaints Musculoskeletal: Musculoskeletal: Reports no additional musculoskeletal complaints Integumentary/Breasts: Skin/Breast: Reports system reviewed and no additional complaints, except as docu Neurologic: Reports system reviewed and no additional complaints, except as documented Psychiatric: Psychiatric: Reports no additional psychiatric complaints Endocrine: Endocrine: Reports no additional endocrine complaints Hematologic/Lymphatic: Hematologic/Lymphatic: Reports no additional hematologic/lymphatic complaints Allergic/Immunologic: Allergic/Immunologic: Reports no additional allergic/immunologic complaints [facility] Past Medical History Medical History (Updated 05/27/21 @ 04:02 by Gloria Benavides MD) Acute blood loss anemia Allergic rhinitis Atherosclerotic heart disease of [place] coronary artery without angina pectoris Atrial fibrillation Chronic low back pain without sciatica Chronic renal insufficiency, stage III (moderate) Gastric ulcer Hypothyroidism, unspecified Melena Mixed hyperlipidemia Peripheral neuropathy, idiopathic PVD (peripheral vascular disease) Thoracic kyphosis Type 2 diabetes mellitus without complication Vitamin D deficiency Surgical History Surgical History Fracture of left hip requiring operative repair H/O heart artery stent History of carpal tunnel surgery of right wrist History of cataract surgery History of inguinal hernia repair Interdigital neuroma of left foot Rotator cuff arthropathy of right shoulder Family History Family History Mother Hypertension Family history of heart disease in male family member before age 55 Father Family history of lung cancer Other Family history of cardiovascular disease Family history of coronary artery disease Social History Social History Smoking status: Never smoker [employer] rubi
[2021-05-27 04:45] LABS: Troponin I 0.988 ng/mL (0.000-0.034)
--- NOTE | 2021-05-27 05:02 | ADMGEN ---
This patient, Layla Srinivasan, was admitted to IMU Room 207-01. Patient/family oriented to hospital policies and general routines including ID bracelet, bed and alarms, visiting hours, pain management, procedures, bathroom and other care routines, personal items, smoking policy, room service/diet, and visiting hours. Information on how to activate the Rapid Response Team has been discussed. Patient/Family are encouraged to report perceived risks to care and to ask questions if they do not understand what they are told or what they should do.
[2021-05-27] MEDS: ONDANSETRON INJ 4 MG/2 ML VIAL IV PUSH ×2 (07:03→17:48)
--- NOTE | 2021-05-27 08:58 | PM.IMPN ---
Progress Note: A&P Assessment and Plan (1) Acute on chronic congestive heart failure: Code(s): I50.9 - Heart failure, unspecified Status: Acute Assessment and Plan: Admit to IMU Echocardiogram in the morning Cardiology consult Aggressive diuresis Lasix 40 mg IV b.i.d. Fluid restriction to 1500 daily Daily intake and output Patricia catheter to be placed Supportive care Add albuterol inhaler (2) Chest pain: Code(s): R07.9 - Chest pain, unspecified Status: Acute Assessment and Plan: Patient with known coronary artery disease, history of STEMI status post KOURTNEY placement in [address]-T changes in the lateral leads, troponin elevation Restart home meds Nitro p.r.n. and morphine Supportive care Continue to monitor (3) Elevated troponin: Code(s): R77.8 - Other specified abnormalities of plasma proteins Status: Acute Assessment and Plan: Will continue to trend Cardiology has been consulted (4) CAD (coronary artery disease): Code(s): I25.10 - Atherosclerotic heart disease of [place] coronary artery without angina pectoris Status: Acute Assessment and Plan: Patient has stent placement in the past of drug-eluting stent. (5) Atrial fibrillation: Qualifiers: Atrial fibrillation type: paroxysmal Qualified Code(s): I48.0 - Paroxysmal atrial fibrillation Code(s): I48.91 - Unspecified atrial fibrillation Status: Acute Assessment and Plan: On apixaban and rate controlled which will be continued (6) Chronic renal insufficiency, stage III (moderate): Qualifiers: Chronic kidney disease stage 3 subtype: stage 3a (GFR 45-59) Qualified Code(s): N18.31 - Chronic kidney disease, stage 3a Code(s): N18.3 - Chronic kidney disease, stage 3 (moderate) Status: Acute Assessment and Plan: A slight elevation of creatinine Continue to monitor Daily basic metabolic profile. (7) Anemia: Qualifiers: Anemia type: unspecified type Qualified Code(s): D64.9 - Anemia, unspecified Code(s): D64.9 - Anemia, unspecified Status: Acute Assessment and Plan: Chronic. No obvious evidence of blood loss Continue to monitor (8) Lower extremity edema: Code(s): R60.0 - Localized edema Status: Acute Assessment and Plan: Will get venous duplex Additional Plan This is an 81-year-old female with past medical history significant for STEMI, coronary artery disease status post drug-eluting stent placement back in 2010, bleeding peptic ulcer, cholecystitis status post drainage patient had recent hospitalization to various centers for mentioned issues patient had spent a few weeks at [facility] swing bed and then discharged home with home health and therapy. Patient comes in today after shortness of breath for the last for few days and chest pressure she denies any dizziness any lightheadedness any palpitations she has bilateral feet swelling no cough no sputum production she also has PND and orthopnea no syncope or near syncope no fevers no rigors no chills. Preliminary workup has been significant for elevated troponin and EKG with new changes T-wave and ST segment inversion, elevated brain natriuretic peptide at 15,800 chest x-ray significant for pulmonary edema. Patient is being admitted for further evaluation and treatment. Subjective Date/time seen: 05/27/21 08:58 Interval history: Feels better than yesterday. Still short of breath and wheezy. She was recently in another hospital for cholecystitis and had a cholecystostomy drain placed which has now been removed. She has been short of breath all past few days with increased swelling in her legs. No chest pain. No cough Review of Systems Review of Systems: All systems reviewed & are unremarkable except as noted in HPI and below (HPI) Exam Narrative: GENERAL: The patient is thin built, frail, not in acute distre
[2021-05-27 09:59] LABS: Troponin I 0.697 ng/mL (0.000-0.034)
[2021-05-27] MEDS: METOPROLOL SUCCINATE EXT REL 25 MG TABCR PO (12:06)
[2021-05-27] MEDS: SUCRALFATE SUSP 100 MG/ML 10 ML UDC 1000 MG PO ×3 (12:07→20:47)
[2021-05-27] MEDS: AMIODARONE HCL 200 MG TABLET PO (12:07)
[2021-05-27] MEDS: POTASSIUM CHLORIDE 20 MEQ TABLET.ER PO (12:07)
[2021-05-27] MEDS: PANTOPRAZOLE 40 MG TABLET PO ×2 (12:08→20:47)
[2021-05-27] MEDS: LOSARTAN POTASSIUM 25 MG TABLET PO (12:08)
[2021-05-27] MEDS: ATORVASTATIN 40 MG TABLET PO (12:08)
[2021-05-27] MEDS: LEVOTHYROXINE SODIUM 25 MCG TABLET PO (12:08)
[2021-05-27] MEDS: FERROUS SULFATE 324 MG TABLET PO (12:08)
[2021-05-27] MEDS: ISOSORBIDE MONONITRATE 30 MG TAB.ER.24H PO (12:08)
--- NOTE | 2021-05-27 12:18 | PM.CNCAR ---
Assessment and Plan Assessment and plan (1) Acute on chronic congestive heart failure: Code(s): I50.9 - Heart failure, unspecified Status: Acute Assessment and Plan: Acute on chronic decompensated heart failure with reduced ejection fraction EF 30-35% by echocardiogram February 2021 in setting of complicated NSTEMI versus STEMI not a candidate for invasive angiography due to acute GI blood loss and severe anemia with plans for medical management. Recently started on apixaban 2.5 mg twice daily by her route deliverer she states for unclear reasons. She was discharged in February on aspirin 81 mg daily with discontinuation of clopidogrel. Continue Lasix 40 mg IV q.12 hours, close observation of magnesium and potassium. Replete as needed. Monitor renal function, input and output, daily weight. If able to obtain Entresto 24/26 mg b.i.d. 36 hours after washout of losartan may be beneficial here yet BP marginal this morning. If stabilized will initiate starting tomorrow morning. Stop Losartan in anticipation for Entresto. Patient very complicated with multiple comorbidities. Conservative management appropriate. Continue telemetry. (2) Elevated troponin: Code(s): R77.8 - Other specified abnormalities of plasma proteins Status: Acute Assessment and Plan: As above. Not acute coronary syndrome or plaque rupture. Most likely type 2 infarct in setting decompensated heart failure, reduced ejection fraction and underlying CAD. (3) CAD (coronary artery disease): Code(s): I25.10 - Atherosclerotic heart disease of [place] coronary artery without angina pectoris Status: Acute Assessment and Plan: Antianginal therapy, aggressive medical therapy. Patient previously not a candidate for invasive angiography and systemic anticoagulation given history of GI bleed. Conservative medical management for now. Close clinical observation. (4) Chronic renal insufficiency, stage III (moderate): Qualifiers: Chronic kidney disease stage 3 subtype: stage 3a (GFR 45-59) Qualified Code(s): N18.31 - Chronic kidney disease, stage 3a Code(s): N18.3 - Chronic kidney disease, stage 3 (moderate) Status: Acute Assessment and Plan: Monitor closely. (5) Gastric ulcer: Code(s): K25.9 - Gastric ulcer, unspecified as acute or chronic, without hemorrhage or perforation Status: Acute Assessment and Plan: No evidence of bleeding at this time. Monitor very closely. She appears to be tolerating Eliquis 2.5 mg twice daily. (6) History of GI bleed: Code(s): Z87.19 - Personal history of other diseases of the digestive system Status: Acute Assessment and Plan: As above. (7) Anemia: Qualifiers: Anemia type: unspecified type Qualified Code(s): D64.9 - Anemia, unspecified Code(s): D64.9 - Anemia, unspecified Status: Acute Assessment and Plan: As above, H&H stable thus far. All closely. History of Present Illness History of Present Illness Consult date/time: Date of service: 05/27/21 12:18 Is a cardiology consultation at the request of Dr. Benavides for opinion regarding shortness of breath, chest pain CHF. Requesting physician: Gloria Benavides MD Consult reason: chest pain and congestive heart failure Reason For Visit: CHF Exacerbation,Acute Resp Failure w/hypoxia Narrative: Patient is an 81-year-old female with a history of STEMI in February discovered in setting of acute GI bleed with severe anemia recent cholecystitis status post drainage at outside hospital, prior history of CAD with remote stent 2010 for which she had previously been maintained on aspirin and clopidogrel, discovery of atrial fibrillation at outside rehabilitation in [place] for which she was started on amiodarone and Eliquis 2.5 mg twice daily who presented to the hospital with complaints of several days of shortness of breath as well as chest pressure but without fevers, chill
[2021-05-27] MEDS: ALBUTEROL SULFATE NEB 2.5 MG/3 ML INH 1.25 MG INHALATION (12:45)
[2021-05-27] MEDS: APIXABAN 2.5 MG TABLET PO (17:49)
[2021-05-27 21:30] LABS: SARS-CoV-2 RNA PCR Negative
[2021-05-28] VITALS (14 sets, daily range): BP systolic 94–129; BP diastolic 47–65; PULSE 60–77; RESP 16–22; TEMP 36.3–37.2; O2SAT 92–97
[2021-05-28 05:42] LABS: Basophils Percent Auto 0.1 % (0.2-1.2); Eosinophils Percent Auto 0.2 % (0-4.4); Hematocrit 25.9 % (37.0-47.0); Hemoglobin 7.8 g/dL (12.0-15.0); Immature Granulocyte Absolute 0.03 K/mm3 (0.00-0.031); Immature Granulocyte Percent A 0.4 % (0-0.5); Lymphocytes Absolute Auto 1.05 K/mm3 (0.9-3.2); Mean Corpuscular HGB Conc 30.1 g/dl (32-36); Mean Corpuscular Hemoglobin 27.5 pg (26-34); Mean Corpuscular Volume 91.2 fl (80-100); Mean Platelet Volume 11.3 fl (7.4-10.4); Monocytes Absolute Auto 0.5 K/mm3 (0.1-0.6); Monocytes Percent Auto 6.5 % (2.6-8.5); Neutrophils Absolute Auto 6.4 K/mm3 (1.3-6.7); Neutrophils Percent Auto 79.8 % (45.5-73.1); Platelet Count Result 188 k/mm3 (150-375); Red Blood Count 2.84 M/mm3 (4.2-5.4); Red Cell Distribution Width 16.7 % (11.5-14.5); White Blood Count 8.1 K/mm3 (4.5-10.0)
[2021-05-28 06:11] LABS: Anion Gap 3 mmol/L (8-16); Blood Urea Nitrogen 25 mg/dL (7-17); Calcium 8.5 mg/dL (8.4-10.2); Carbon Dioxide 34 mmol/L (22-30); Chloride 97 mmol/L (98-107); Estimated CRCL calculation 28 ml/min; Estimated Glomerular Filt Rate 47; Glucose 115 mg/dL (65-110); Potassium 4.3 mmol/L (3.4-5.0); Sodium 134 mmol/L (137-145)
[2021-05-28] MEDS: LEVOTHYROXINE SODIUM 25 MCG TABLET PO (06:39)
[2021-05-28] MEDS: NITROGLYCERIN OINTMENT 1 INCH DOSE 0.5 INCH TRANSDERM ×3 (06:40→17:24)
[2021-05-28] MEDS: FUROSEMIDE INJ 40 MG/4 ML VIAL IV PUSH ×2 (08:06→20:21)
[2021-05-28] MEDS: ATORVASTATIN 40 MG TABLET PO (08:07)
[2021-05-28] MEDS: PANTOPRAZOLE 40 MG TABLET PO ×2 (08:07→20:21)
[2021-05-28] MEDS: METOPROLOL SUCCINATE EXT REL 25 MG TABCR PO (08:07)
[2021-05-28] MEDS: SUCRALFATE SUSP 100 MG/ML 10 ML UDC 1000 MG PO ×4 (08:07→20:22)
[2021-05-28] MEDS: POTASSIUM CHLORIDE 20 MEQ TABLET.ER PO (08:08)
[2021-05-28] MEDS: LOSARTAN POTASSIUM 25 MG TABLET PO (08:08)
[2021-05-28] MEDS: AMIODARONE HCL 200 MG TABLET PO (08:08)
[2021-05-28] MEDS: APIXABAN 2.5 MG TABLET PO ×2 (08:08→17:24)
[2021-05-28] MEDS: ISOSORBIDE MONONITRATE 30 MG TAB.ER.24H PO (08:09)
[2021-05-28] MEDS: FERROUS SULFATE 324 MG TABLET PO (08:09)
--- NOTE | 2021-05-28 11:10 | PC.NURSE ---
Cardiopulmonary Rehab Services flyer was given to patient in admission folder.
--- NOTE | 2021-05-28 12:11 | PM.PNCARD ---
Progress Note: A&P Assessment and Plan (1) Acute on chronic congestive heart failure: Code(s): I50.9 - Heart failure, unspecified Status: Acute Assessment and Plan: Acute on chronic decompensated heart failure with reduced ejection fraction EF 30-35% by echocardiogram February 2021 in setting of complicated NSTEMI versus STEMI not a candidate for invasive angiography due to acute GI blood loss and severe anemia with plans for medical management. Continue Lasix 40 mg IV q.12 hours, close observation of magnesium and potassium. Replete as needed. Monitor renal function, input and output, daily weight. Transition to oral Lasix likely tomorrow morning. Stop losartan to allow washout an opportunity to utilize Entresto. Would favor Entresto 24/26 mg b.i.d. as tolerated although BP low overnight. Patient much improved overall. Monitor electrolytes, renal function, input and output. Discussed at length complicated nature of her care. She agrees to not pursue invasive evaluation such as coronary angiography. I do not feel this is necessary and was not discussed or advised by her gold prospector as an outpatient. She will follow-up with her gold prospector as an outpatient Dr. Caputo. Patient very complicated with multiple comorbidities. Conservative management appropriate. Continue telemetry. (2) Elevated troponin: Code(s): R77.8 - Other specified abnormalities of plasma proteins Status: Acute Assessment and Plan: As above. Not acute coronary syndrome or plaque rupture. Most likely type 2 infarct in setting decompensated heart failure, reduced ejection fraction and underlying CAD. (3) CAD (coronary artery disease): Code(s): I25.10 - Atherosclerotic heart disease of [place] coronary artery without angina pectoris Status: Acute Assessment and Plan: Antianginal therapy, aggressive medical therapy. Patient previously not a candidate for invasive angiography and systemic anticoagulation given history of GI bleed. She again is not interested in invasive workup. I think this is appropriate. Conservative medical management for now. Close clinical observation. (4) Paroxysmal atrial fibrillation: Code(s): I48.0 - Paroxysmal atrial fibrillation Status: Acute Assessment and Plan: Previously documented in records outside hospital prompting initiation of amiodarone and Eliquis 2.5 mg b.i.d.. (5) Chronic renal insufficiency, stage III (moderate): Qualifiers: Chronic kidney disease stage 3 subtype: stage 3a (GFR 45-59) Qualified Code(s): N18.31 - Chronic kidney disease, stage 3a Code(s): N18.3 - Chronic kidney disease, stage 3 (moderate) Status: Acute Assessment and Plan: Monitor closely. Stable. (6) Gastric ulcer: Code(s): K25.9 - Gastric ulcer, unspecified as acute or chronic, without hemorrhage or perforation Status: Acute Assessment and Plan: No evidence of bleeding at this time. Monitor very closely. She appears to be tolerating Eliquis 2.5 mg twice daily. (7) History of GI bleed: Code(s): Z87.19 - Personal history of other diseases of the digestive system Status: Acute Assessment and Plan: As above. (8) Anemia: Qualifiers: Anemia type: unspecified type Qualified Code(s): D64.9 - Anemia, unspecified Code(s): D64.9 - Anemia, unspecified Status: Acute Assessment and Plan: As above, H&H stable thus far. All closely. Subjective Date/time seen: Date of service: 05/28/21 12:11 Follow-up for CHF Patient feeling much better. Occasional cough, nonproductive. No chest pain. Breathing much improved energy improved. No new issues overnight. Maintaining sinus rhythm on telemetry. Review of Systems Review of Systems: All systems reviewed & are unremarkable except as noted in HPI and below Constitutional: Constitutional: Reports as per HPI, Reports no additional constitu
--- NOTE | 2021-05-28 15:07 | PM.IMPN ---
Progress Note: A&P Assessment and Plan (1) Systolic heart failure secondary to coronary artery disease: Code(s): I50.20 - Unspecified systolic (congestive) heart failure; I25.10 - Atherosclerotic heart disease of [place] coronary artery without angina pectoris Status: Acute Assessment and Plan: - CHF exacerbation, continue IV Lasix 40 mg IV b.i.d. and wean oxygen as needed - will replete potassium to greater than 4 and magnesium greater than 2 as needed - holding losartan for 2 days for Entresto - consult cardiology Dr. Burden - patient will need follow-up with her outpatient stock letterer Dr. Caputo - no interest in invasive evaluation for coronary artery disease (2) Paroxysmal atrial fibrillation: Code(s): I48.0 - Paroxysmal atrial fibrillation Status: Acute Assessment and Plan: -continue amiodarone rhythm control -Continue anticoagulation with Eliquis - in sinus rhythm (3) Acute hypoxemic respiratory failure: Code(s): J96.01 - Acute respiratory failure with hypoxia Status: Acute Assessment and Plan: secondary to CHF see above (4) Lower extremity edema: Code(s): R60.0 - Localized edema Status: Acute Assessment and Plan: - likely secondary to CHF exacerbation - venous duplex of lower extremities negative (5) CHF exacerbation: Qualifiers: Heart failure type: systolic Qualified Code(s): I50.23 - Acute on chronic systolic (congestive) heart failure Code(s): I50.9 - Heart failure, unspecified Status: Acute Assessment and Plan: see above (6) Elevated troponin: Code(s): R77.8 - Other specified abnormalities of plasma proteins Status: Acute Assessment and Plan: -no active chest pain, elevated troponin likely secondary to AFib and CHF. troponins already downtrended. cardiology consulted, I reviewed the notes Additional Plan Diet: Heart healthy with fluid restriction 1500 cc DVT prophylaxis: On Eliquis GI prophylaxis: Protonix Code status: Full code Disposition: can be moved to [facility] with telemetry as her oxygen requirements have come down Time Spent With Patient Time with patient: 25 - 35 minutes Subjective Date/time seen: 05/28/21 15:07 patient examined. She is doing well today. we are continuing to diurese with IV Lasix and her oxygen requirements are coming down throughout the day. Now down to 3 L O2. Patient will be transition to medical floor with telemetry. I discussed with patient she will have to have close follow-up with PCP or stock letterer to monitor her weight and to help with diuretic management to prevent future hospitalizations. Patient denies fever, chills, nausea, vomiting, diarrhea, chest pain, abdominal pain. Review of Systems Review of Systems: All systems reviewed & are unremarkable except as noted in HPI and below Exam Narrative: - GENERAL: Frail thin elderly woman in no acute distress - EYES: EOMI. Anicteric. - HENT: Moist mucous membranes. - LUNGS: crackles bilaterally. Patient's breathing is regular rate appears to be comfortable on 3 L oxygen by nasal cannula - CARDIOVASCULAR: Regular rate and rhythm. No murmur. No JVD. - ABDOMEN: Soft, non-tender and non-distended. No palpable masses. - EXTREMITIES: 1+ pitting edema. Peripheral pulses 2+. Non-tender. - NEUROLOGIC: No focal neurological deficits. CN II-XII grossly intact. - PSYCHIATRIC: Awake, Alert and oriented x 3. Appropriate mood and affect. - SKIN: No rashes or lesions. Warm. - LYMPH: No cervical lymphadenopathy. Objective Data Vital Signs Vital Signs: Vital Signs - 24 hr 05/27/21 16:00 05/27/21 18:00 05/27/21 20:00 Temperature 36.4 C 36.4 C L Pulse Rate 70 76 57 L Respiratory Rate 24 H 22 H Blood Pressure 97/44 L 98/55 L Pulse Oximetry 92 95 05/27/21 22:08 05/27/21 23:56 05/28/21 00:00 Temperature 36.7 C Pulse Rate 61 68 Respiratory Rate 16 Blood Pressure 94/47 L
[2021-05-28] MEDS: ACETAMINOPHEN 325 MG TABLET 650 MG PO (18:39)
--- NOTE | 2021-05-28 18:53 | PC.NURSE ---
This patient, Layla Srinivasan, was transferred to [ [id number] ] on 05/28/21 at 1804. Personal belongings sent with patient. Report given to [ CHEPE Thomas ]. Appropriate documentation sent with patient.
[2021-05-29] VITALS (10 sets, daily range): BP systolic 107–142; BP diastolic 50–80; PULSE 60–89; RESP 14–22; TEMP 36.1–37.1; O2SAT 92–98
[2021-05-29] MEDS: NITROGLYCERIN OINTMENT 1 INCH DOSE 0.5 INCH TRANSDERM ×2 (00:01→06:02)
[2021-05-29] MEDS: ONDANSETRON INJ 4 MG/2 ML VIAL IV PUSH (04:12)
[2021-05-29] MEDS: ALPRAZolam (*CRX) 0.5 MG TABLET PO ×2 (04:32→10:42)
--- NOTE | 2021-05-29 05:40 | PC.NURSE ---
Received a call from the son at 0445 very concerned as his mother called him and states she is not being cared for and no one has been in the room. I explained we had been in numerous times, and that her oxygen level was good and her lungs were clear. I also explained that she was hyperventilating at times. Son states she has a bad cough and that she was hot fan ordered for the pt, no cough noted when in the room.
[2021-05-29] MEDS: LEVOTHYROXINE SODIUM 25 MCG TABLET PO (06:00)
[2021-05-29 06:12] LABS: Anion Gap 7 mmol/L (8-16); Blood Urea Nitrogen 23 mg/dL (7-17); Calcium 9.1 mg/dL (8.4-10.2); Carbon Dioxide 29 mmol/L (22-30); Chloride 97 mmol/L (98-107); Estimated CRCL calculation 38 ml/min; Estimated Glomerular Filt Rate > 60; Glucose 157 mg/dL (65-110); Magnesium 2.2 mg/dL (1.6-2.3); Potassium 3.8 mmol/L (3.4-5.0); Sodium 133 mmol/L (137-145)
[2021-05-29] MEDS: ALBUTEROL SULFATE NEB 2.5 MG/3 ML INH 1.25 MG INHALATION (06:19)
[2021-05-29] MEDS: FERROUS SULFATE 324 MG TABLET PO (08:36)
[2021-05-29] MEDS: APIXABAN 2.5 MG TABLET PO ×2 (08:36→16:54)
[2021-05-29] MEDS: FUROSEMIDE INJ 40 MG/4 ML VIAL IV PUSH ×2 (08:36→20:57)
[2021-05-29] MEDS: ATORVASTATIN 40 MG TABLET PO (08:36)
[2021-05-29] MEDS: SUCRALFATE SUSP 100 MG/ML 10 ML UDC 1000 MG PO ×4 (08:36→20:57)
[2021-05-29] MEDS: PANTOPRAZOLE 40 MG TABLET PO ×2 (08:36→20:57)
[2021-05-29] MEDS: ISOSORBIDE MONONITRATE 30 MG TAB.ER.24H PO (08:37)
[2021-05-29] MEDS: POTASSIUM CHLORIDE 20 MEQ TABLET.ER PO (08:37)
[2021-05-29] MEDS: METOPROLOL SUCCINATE EXT REL 25 MG TABCR PO (08:37)
[2021-05-29] MEDS: AMIODARONE HCL 200 MG TABLET PO (08:37)
--- NOTE | 2021-05-29 09:25 | PM.PNCARD ---
Progress Note: A&P Assessment and Plan (1) Acute on chronic congestive heart failure: Code(s): I50.9 - Heart failure, unspecified <JACQUELINE Taylor - Last Filed: 05/29/21 17:04> Status: Acute <JACQUELINE Taylor - Last Filed: 05/29/21 17:04> Assessment and Plan: Acute on chronic decompensated heart failure with reduced ejection fraction EF 30-35% by echocardiogram February 2021 in setting of complicated NSTEMI versus STEMI not a candidate for invasive angiography due to acute GI blood loss and severe anemia with plans for medical management. Continue Lasix 40 mg IV q.12 hours, close observation of magnesium and potassium. Replete as needed. Monitor renal function, input and output, daily weight. Will continue I.V furosemide today - consider shifting to oral tomorrow. Renal function stable. Stop losartan to allow washout an opportunity to utilize Entresto. Would favor Entresto 24/26 mg b.i.d. as tolerated although BP low overnight. Patient very complicated with multiple comorbidities. Conservative management appropriate. Continue telemetry. <JACQUELINE Taylor - Last Filed: 05/29/21 17:04> (2) Elevated troponin: Code(s): R77.8 - Other specified abnormalities of plasma proteins <JACQUELINE Taylor - Last Filed: 05/29/21 17:04> Status: Acute <JACQUELINE Taylor - Last Filed: 05/29/21 17:04> Assessment and Plan: As above. Not acute coronary syndrome or plaque rupture. Most likely type 2 infarct in setting decompensated heart failure, reduced ejection fraction and underlying CAD. <JACQUELINE Taylor - Last Filed: 05/29/21 17:04> (3) CAD (coronary artery disease): Code(s): I25.10 - Atherosclerotic heart disease of [place] coronary artery without angina pectoris <JACQUELINE Taylor - Last Filed: 05/29/21 17:04> Status: Acute <JACQUELINE Taylor - Last Filed: 05/29/21 17:04> Assessment and Plan: Antianginal therapy, aggressive medical therapy. Patient previously not a candidate for invasive angiography and systemic anticoagulation given history of GI bleed. She again is not interested in invasive workup. I think this is appropriate. Conservative medical management for now. Close clinical observation. <JACQUELINE Taylor - Last Filed: 05/29/21 17:04> (4) Paroxysmal atrial fibrillation: Code(s): I48.0 - Paroxysmal atrial fibrillation <JACQUELINE Taylor - Last Filed: 05/29/21 17:04> Status: Acute <JACQUELINE Taylor - Last Filed: 05/29/21 17:04> Assessment and Plan: Previously documented in records outside hospital prompting initiation of amiodarone and Eliquis 2.5 mg b.i.d.. <JACQUELINE Taylor - Last Filed: 05/29/21 17:04> (5) Chronic renal insufficiency, stage III (moderate): Qualifiers: Chronic kidney disease stage 3 subtype: stage 3a (GFR 45-59) Qualified Code(s): N18.31 - Chronic kidney disease, stage 3a <JACQUELINE Taylor - Last Filed: 05/29/21 17:04> Code(s): N18.3 - Chronic kidney disease, stage 3 (moderate) <JACQUELINE Taylor - Last Filed: 05/29/21 17:04> Status: Acute <JACQUELINE Taylor - Last Filed: 05/29/21 17:04> Assessment and Plan: Monitor closely. Stable. <JACQUELINE Taylor - Last Filed: 05/29/21 17:04> (6) Gastric ulcer: Code(s): K25.9 - Gastric ulcer, unspecified as acute or chronic, without hemorrhage or perforation <JACQUELINE Taylor - Last Filed: 05/29/21 17:04> Status: Acute <JACQUELINE Taylor - Last Filed: 05/29/21 17:04> Assessment and Plan: Monitor h/h closely - she did have a drop in h/h today 7.8/25.9 (8.9/30.0). She has not had any melena, continue to monitor very closely. <JACQUELINE Taylor - Last Filed: 05/29/21 17:04> (7) History of GI bleed: Code(s): Z87.19 - Personal history of other diseases o
[2021-05-29 10:22] LABS: Basophils Percent Auto 0.2 % (0.2-1.2); Eosinophils Percent Auto 0.2 % (0-4.4); Hematocrit 29.3 % (37.0-47.0); Hemoglobin 8.7 g/dL (12.0-15.0); Immature Granulocyte Absolute 0.04 K/mm3 (0.00-0.031); Immature Granulocyte Percent A 0.4 % (0-0.5); Lymphocytes Absolute Auto 0.71 K/mm3 (0.9-3.2); Lymphocytes Percent Auto 6.6 % (18.3-44.2); Mean Corpuscular HGB Conc 29.7 g/dl (32-36); Mean Corpuscular Hemoglobin 27.8 pg (26-34); Mean Corpuscular Volume 93.6 fl (80-100); Mean Platelet Volume 11.7 fl (7.4-10.4); Monocytes Absolute Auto 0.7 K/mm3 (0.1-0.6); Monocytes Percent Auto 6.1 % (2.6-8.5); Neutrophils Absolute Auto 9.3 K/mm3 (1.3-6.7); Neutrophils Percent Auto 86.5 % (45.5-73.1); Platelet Count Result 222 k/mm3 (150-375); Red Blood Count 3.13 M/mm3 (4.2-5.4); Red Cell Distribution Width 16.9 % (11.5-14.5); White Blood Count 10.7 K/mm3 (4.5-10.0)
[2021-05-29 11:48] LABS: Anion Gap 4 mmol/L (8-16); Blood Urea Nitrogen 23 mg/dL (7-17); Calcium 8.6 mg/dL (8.4-10.2); Carbon Dioxide 33 mmol/L (22-30); Chloride 97 mmol/L (98-107); Estimated CRCL calculation 38 ml/min; Estimated Glomerular Filt Rate > 60; Glucose 131 mg/dL (65-110); Potassium 3.6 mmol/L (3.4-5.0); Sodium 134 mmol/L (137-145)
[2021-05-29 11:56] LABS: Hypochromasia 1+ (NORMAL); Platelet Estimate Adequate (Adequate)
[2021-05-29 11:57] LABS: Anisocytosis 1+ (NORMAL); Microcytosis 1+ (NORMAL)
--- NOTE | 2021-05-29 17:46 | PM.IMPN ---
Progress Note: A&P Assessment and Plan (1) CHF exacerbation: Qualifiers: Heart failure type: systolic Qualified Code(s): I50.23 - Acute on chronic systolic (congestive) heart failure Code(s): I50.9 - Heart failure, unspecified Status: Acute Assessment and Plan: -systolic heart failure, continue 40 mg IV b.i.d. Lasix and wean oxygen -replete potassium as needed to greater than 4 Mag greater than 2 -continue to hold losartan for Entresto -cardiology consulted for following -outpatient patient follows Dr. Caputo cardiology -she is not interested in any invasive evaluation for CAD (2) Paroxysmal atrial fibrillation: Code(s): I48.0 - Paroxysmal atrial fibrillation Status: Acute Assessment and Plan: Continue Eliquis anticoagulation and amiodarone for rhythm control (3) Acute hypoxemic respiratory failure: Code(s): J96.01 - Acute respiratory failure with hypoxia Status: Acute Assessment and Plan: On 3 L oxygen wean as tolerated (4) Dysphagia: Qualifiers: Dysphagia type: unspecified Qualified Code(s): R13.10 - Dysphagia, unspecified Code(s): R13.10 - Dysphagia, unspecified Status: Acute Assessment and Plan: Nurse notes difficulty swallowing, will have SHOT BAGGER evaluation (5) Anxiety: Code(s): F41.9 - Anxiety disorder, unspecified Status: Acute Assessment and Plan: Patient has no history of anxiety, only feeling so during the hospitalization. Will give p.r.n. Xanax as needed. Coming to hospital was a huge change for her and when she is discharged she should not require any medications Additional Plan Diet: Heart healthy with fluid restriction 1500 cc DVT prophylaxis: On Eliquis GI prophylaxis: Protonix Code status: Full code Disposition: Med surg with telemetry, home in 2-3 days Time Spent With Patient Time with patient: 25 - 35 minutes Subjective Date/time seen: 05/29/21 17:46 Patient seen and examined. She is tearful today because of moving to a different room was a big change for her. I discussed with Cardiology we will continue diuresis on my 40 mg IV b.i.d.. I am adding Xanax to help with her anxiety. Patient denies fever, chills, nausea, vomiting, diarrhea. Nurse note patient had difficulty swallowing, will get SHOT BAGGER evaluation. Review of Systems Review of Systems: All systems reviewed & are unremarkable except as noted in HPI and below Exam Narrative: - GENERAL: Frail thin elderly woman in no acute distress breathing comfortably on 3 L - EYES: EOMI. Anicteric. - HENT: Moist mucous membranes. - LUNGS: crackles bilaterally. Patient's breathing is regular rate appears to be comfortable on 3 L oxygen by nasal cannula - CARDIOVASCULAR: Regular rate and rhythm. No murmur. No JVD. - ABDOMEN: Soft, non-tender and non-distended. No palpable masses. - EXTREMITIES: 1+ pitting edema. Peripheral pulses 2+. Non-tender. - NEUROLOGIC: No focal neurological deficits. CN II-XII grossly intact. - PSYCHIATRIC: Awake, Alert and oriented. Tearful mood and affect. - SKIN: No rashes or lesions. Warm. - LYMPH: No cervical lymphadenopathy. Objective Data Vital Signs Vital Signs: Vital Signs - 24 hr 05/28/21 20:00 05/28/21 21:13 05/28/21 21:34 Temperature 36.4 C L Pulse Rate 66 66 66 Respiratory Rate 16 16 16 Blood Pressure 129/55 L Pulse Oximetry 94 96 94 05/29/21 00:00 05/29/21 04:00 05/29/21 05:00 Temperature 36.2 C L 36.1 C L Pulse Rate 70 73 89 Respiratory Rate 16 16 Blood Pressure 108/59 L 111/80 Pulse Oximetry 95 92 05/29/21 06:22 05/29/21 06:29 05/29/21 08:00 Temperature 36.1 C L Pulse Rate 75 75 77 Respiratory Rate 18 16 16 Blood Pressure 142/75 H Pulse Oximetry 94 05/29/21 08:37 05/29/21 12:00 05/29/21 16:00 Temperature 36.3 C L 36.7 C Pulse Rate 81 65 71 Respiratory Rate 16 14 Blood Pressure 107/70 109/50 L Pulse Oximetry 94 92 Intake/Output Intake/Ou
[2021-05-30] VITALS (8 sets, daily range): BP systolic 118–137; BP diastolic 54–71; PULSE 62–79; RESP 16–20; TEMP 36.2–36.9; O2SAT 92–97
[2021-05-30] MEDS: NITROGLYCERIN OINTMENT 1 INCH DOSE 0.5 INCH TRANSDERM (05:34)
[2021-05-30] MEDS: LEVOTHYROXINE SODIUM 25 MCG TABLET PO (05:38)
[2021-05-30 06:03] LABS: Anion Gap 5 mmol/L (8-16); Blood Urea Nitrogen 20 mg/dL (7-17); Calcium 8.4 mg/dL (8.4-10.2); Carbon Dioxide 33 mmol/L (22-30); Chloride 93 mmol/L (98-107); Estimated CRCL calculation 38 ml/min; Estimated Glomerular Filt Rate > 60; Glucose 111 mg/dL (65-110); Potassium 3.6 mmol/L (3.4-5.0); Sodium 131 mmol/L (137-145)
--- NOTE | 2021-05-30 07:32 | PC.NURSE ---
Outpatient referral for CHF diet teaching started. Carla Fernandes RD, states patient would like op CHF teaching. Referral and [facility].
[2021-05-30] MEDS: AMIODARONE HCL 200 MG TABLET PO (08:11)
[2021-05-30] MEDS: ISOSORBIDE MONONITRATE 30 MG TAB.ER.24H PO (08:12)
[2021-05-30] MEDS: METOPROLOL SUCCINATE EXT REL 25 MG TABCR PO (08:12)
[2021-05-30] MEDS: FUROSEMIDE INJ 40 MG/4 ML VIAL IV PUSH ×2 (08:12→20:12)
[2021-05-30] MEDS: APIXABAN 2.5 MG TABLET PO ×2 (08:12→17:19)
[2021-05-30] MEDS: ATORVASTATIN 40 MG TABLET PO (08:12)
[2021-05-30] MEDS: FERROUS SULFATE 324 MG TABLET PO (08:12)
[2021-05-30] MEDS: PANTOPRAZOLE 40 MG TABLET PO ×2 (08:13→20:12)
[2021-05-30] MEDS: POTASSIUM CHLORIDE 20 MEQ TABLET.ER PO (08:13)
[2021-05-30] MEDS: SUCRALFATE SUSP 100 MG/ML 10 ML UDC 1000 MG PO ×4 (08:18→20:12)
--- NOTE | 2021-05-30 11:22 | PM.PNCARD ---
Progress Note: A&P Assessment and Plan (1) Acute on chronic congestive heart failure: Code(s): I50.9 - Heart failure, unspecified <JACQUELINE Taylor - Last Filed: 05/30/21 15:08> Status: Acute <JACQUELINE Taylor - Last Filed: 05/30/21 15:08> Assessment and Plan: Acute on chronic decompensated heart failure with reduced ejection fraction EF 30-35% by echocardiogram February 2021 in setting of complicated NSTEMI versus STEMI not a candidate for invasive angiography due to acute GI blood loss and severe anemia with plans for medical management. Continue Lasix 40 mg IV q.12 hours, close observation of magnesium and potassium. Replete as needed. Monitor renal function, input and output, daily weight. Will continue 40mg IV furosemide again today - consider shifting to oral tomorrow. Renal function stable. Losartan has been stopped since 05/28 - will initiate Entresto 12-13mg BID. Monitor BP closely. Patient very complicated with multiple comorbidities. Conservative management appropriate. Continue telemetry. <JACQUELINE Taylor - Last Filed: 05/30/21 15:08> (2) Elevated troponin: Code(s): R77.8 - Other specified abnormalities of plasma proteins <JACQUELINE Taylor - Last Filed: 05/30/21 15:08> Status: Acute <JACQUELINE Taylor - Last Filed: 05/30/21 15:08> Assessment and Plan: As above. Not acute coronary syndrome or plaque rupture. Most likely type 2 infarct in setting decompensated heart failure, reduced ejection fraction and underlying CAD. <JACQUELINE Taylor - Last Filed: 05/30/21 15:08> (3) CAD (coronary artery disease): Code(s): I25.10 - Atherosclerotic heart disease of [place] coronary artery without angina pectoris <JACQUELINE Taylor - Last Filed: 05/30/21 15:08> Status: Acute <JACQUELINE Taylor - Last Filed: 05/30/21 15:08> Assessment and Plan: Antianginal therapy, aggressive medical therapy. Patient previously not a candidate for invasive angiography and systemic anticoagulation given history of GI bleed. She again is not interested in invasive workup. I think this is appropriate. Conservative medical management for now. Close clinical observation. -Will d/c nitroglycerin for now - not having any chest pain <JACQUELINE Taylor - Last Filed: 05/30/21 15:08> (4) Paroxysmal atrial fibrillation: Code(s): I48.0 - Paroxysmal atrial fibrillation <JACQUELINE Taylor - Last Filed: 05/30/21 15:08> Status: Acute <JACQUELINE Taylor - Last Filed: 05/30/21 15:08> Assessment and Plan: Previously documented in records outside hospital prompting initiation of amiodarone and Eliquis 2.5 mg b.i.d.. <JACQUELINE Taylor - Last Filed: 05/30/21 15:08> (5) Chronic renal insufficiency, stage III (moderate): Qualifiers: Chronic kidney disease stage 3 subtype: stage 3a (GFR 45-59) Qualified Code(s): N18.31 - Chronic kidney disease, stage 3a <JACQUELINE Taylor - Last Filed: 05/30/21 15:08> Code(s): N18.3 - Chronic kidney disease, stage 3 (moderate) <JACQUELINE Taylor - Last Filed: 05/30/21 15:08> Status: Acute <JACQUELINE Taylor - Last Filed: 05/30/21 15:08> Assessment and Plan: Monitor closely. Stable. <JACQUELINE Taylor - Last Filed: 05/30/21 15:08> (6) Gastric ulcer: Code(s): K25.9 - Gastric ulcer, unspecified as acute or chronic, without hemorrhage or perforation <JACQUELINE Taylor - Last Filed: 05/30/21 15:08> Status: Acute <JACQUELINE Taylor - Last Filed: 05/30/21 15:08> Assessment and Plan: H/H stable. Continue close monitoring. <JACQUELINE Taylor - Last Filed: 05/30/21 15:08> (7) History of GI bleed: Code(s): Z87.19 - Personal history of other diseases of the digestive system <JACQUELINE Taylor - Last Filed: 05/30/21 15:08>
--- NOTE | 2021-05-30 12:36 | PM.IMPN ---
Progress Note: A&P Assessment and Plan (1) CHF exacerbation: Qualifiers: Heart failure type: systolic Qualified Code(s): I50.23 - Acute on chronic systolic (congestive) heart failure Code(s): I50.9 - Heart failure, unspecified Status: Acute Assessment and Plan: -Continue diuresis Lasix IV b.i.d. 40 mg, weaning oxygen as tolerated, currently on 3 L -goal potassium greater than 4 Mag greater than 2 -starting Entresto today with Cardiology -outpatient follows Dr. Caputo cardiology -no invasive evaluation for CAD at this time (2) Anxiety: Code(s): F41.9 - Anxiety disorder, unspecified Status: Acute Assessment and Plan: Continue p.r.n. Xanax, patient states anxiety is only while at hospital, will not need meds on discharge (3) Dysphagia: Qualifiers: Dysphagia type: unspecified Qualified Code(s): R13.10 - Dysphagia, unspecified Code(s): R13.10 - Dysphagia, unspecified Status: Acute Assessment and Plan: Speech therapy consult (4) Paroxysmal atrial fibrillation: Code(s): I48.0 - Paroxysmal atrial fibrillation Status: Acute Assessment and Plan: Amiodarone for rhythm control and Eliquis for anticoagulation (5) Acute hypoxemic respiratory failure: Code(s): J96.01 - Acute respiratory failure with hypoxia Status: Acute Assessment and Plan: No home oxygen therapy, continue supplemental oxygen as needed, currently on 3 L Additional Plan Diet: Heart healthy with fluid restriction 1500 cc DVT prophylaxis: On Eliquis GI prophylaxis: Protonix Code status: Full code Disposition: Med surg with telemetry, pending clinical course, PT/OT Time Spent With Patient Time with patient: 25 - 35 minutes Subjective Date/time seen: 05/30/21 12:36 Patient examined. Patient states she is clinically feeling much better today. We are continuing IV diuresis, net -2.5 L, however she is still on 3 L oxygen. patient states she has no problems swallowing. Anxiety is better controlled now with p.r.n. Xanax. Starting Entresto today as we have washed out losartan. Patient denies fever, chills, nausea, vomiting, swallowing, chest pain, abdominal pain. Review of Systems Review of Systems: All systems reviewed & are unremarkable except as noted in HPI and below Exam Narrative: - GENERAL: Frail thin elderly woman in no acute distress - EYES: EOMI. Anicteric. - HENT: Moist mucous membranes. - LUNGS: Improvement of crackles. Breathing comfortably on 3 L - CARDIOVASCULAR: Regular rate and rhythm. No murmur. No JVD. - ABDOMEN: Soft, non-tender and non-distended. No palpable masses. - EXTREMITIES: Trace pitting edema. Peripheral pulses 2+. Non-tender. - NEUROLOGIC: No focal neurological deficits. CN II-XII grossly intact. - PSYCHIATRIC: Awake, Alert and oriented. Appropriate mood and affect. - SKIN: No rashes or lesions. Warm. - LYMPH: No cervical lymphadenopathy. Objective Data Vital Signs Vital Signs: Vital Signs - 24 hr 05/29/21 16:00 05/29/21 20:00 05/30/21 00:00 Temperature 36.7 C 37.1 C 36.9 C Pulse Rate 61 61 76 Respiratory Rate 14 22 H 20 Blood Pressure 109/50 L 111/56 L 126/60 Pulse Oximetry 92 98 94 05/30/21 04:00 05/30/21 08:00 05/30/21 08:11 Temperature 36.6 C 36.3 C L Pulse Rate 77 62 76 Respiratory Rate 20 16 Blood Pressure 130/71 129/63 Pulse Oximetry 95 94 05/30/21 08:12 05/30/21 12:00 Temperature Pulse Rate 76 75 Respiratory Rate Blood Pressure Pulse Oximetry Intake/Output Intake/Output: Intake & Output 05/27/21 05/28/21 05/29/21 05/30/21 23:59 23:59 23:59 23:59 Intake Total 200 1570 1320 Output Total 676 0039 2429 1354 [facility] -[phone] Meds/Results Medications: Active Medications Generic Name Dose Route Start Last Admin Trade Name Freq PRN Reason Stop Dose Admin Acetaminophen 650 mg 05/28/21 18:30 05/28/21 18:39 Acetaminophen 325 Mg Tablet P
--- NOTE | 2021-05-30 15:45 | PCSTNOTE ---
Patient and daughter refused Bedside Swallow Evaluation, stating that patient is not having any difficulty with her swallowing and they did not want to complete the evaluation. Dr. Hauser was notified of patient/family refusal.[ ]
[2021-05-30] MEDS: SACUBITRIL/VALSARTAN 12-13 MG TABLET 1 TAB PO (20:12)
[2021-05-31] VITALS (13 sets, daily range): BP systolic 121–141; BP diastolic 59–71; PULSE 59–87; RESP 18–20; TEMP 36.6–36.9; O2SAT 88–98
[2021-05-31] MEDS: LEVOTHYROXINE SODIUM 25 MCG TABLET PO (05:48)
[2021-05-31 05:52] LABS: Anion Gap 5 mmol/L (8-16); Blood Urea Nitrogen 16 mg/dL (7-17); Calcium 8.9 mg/dL (8.4-10.2); Carbon Dioxide 32 mmol/L (22-30); Chloride 98 mmol/L (98-107); Estimated CRCL calculation 38 ml/min; Estimated Glomerular Filt Rate > 60; Glucose 121 mg/dL (65-110); Potassium 3.5 mmol/L (3.4-5.0); Sodium 135 mmol/L (137-145)
[2021-05-31 07:49] LABS: Hematocrit 31.7 % (37.0-47.0); Hemoglobin 9.9 g/dL (12.0-15.0); Mean Corpuscular HGB Conc 31.2 g/dl (32-36); Mean Corpuscular Hemoglobin 27.7 pg (26-34); Mean Corpuscular Volume 88.8 fl (80-100); Mean Platelet Volume 11.2 fl (7.4-10.4); Platelet Count Result 294 k/mm3 (150-375); Red Blood Count 3.57 M/mm3 (4.2-5.4); Red Cell Distribution Width 16.8 % (11.5-14.5); White Blood Count 9.1 K/mm3 (4.5-10.0)
[2021-05-31] MEDS: METOPROLOL SUCCINATE EXT REL 25 MG TABCR PO (08:33)
[2021-05-31] MEDS: ATORVASTATIN 40 MG TABLET PO (08:33)
[2021-05-31] MEDS: FERROUS SULFATE 324 MG TABLET PO (08:34)
[2021-05-31] MEDS: APIXABAN 2.5 MG TABLET PO (08:34)
[2021-05-31] MEDS: ISOSORBIDE MONONITRATE 30 MG TAB.ER.24H PO (08:34)
[2021-05-31] MEDS: POTASSIUM CHLORIDE 20 MEQ TABLET.ER PO (08:34)
[2021-05-31] MEDS: AMIODARONE HCL 200 MG TABLET PO (08:34)
[2021-05-31] MEDS: PANTOPRAZOLE 40 MG TABLET PO (08:34)
[2021-05-31] MEDS: SACUBITRIL/VALSARTAN 12-13 MG TABLET 1 TAB PO (08:34)
[2021-05-31] MEDS: SUCRALFATE SUSP 100 MG/ML 10 ML UDC 1000 MG PO ×2 (08:34→12:37)
[2021-05-31] MEDS: FUROSEMIDE 40 MG TABLET PO (09:56)
--- NOTE | 2021-05-31 11:07 | HOMEO2EVAL ---
Evaluation was performed at [facility] Home Oxygen Evaluation RC: Home Oxygen (O2) Evaluation Start: 05/31/21 07:50 Freq: ONCE Status: Active Protocol: RPE Activity Type Activity Date Activity User E-Sign Co-Sign Detail Recorded Client Recorded Date Recorded By Document 05/31/21 10:30 [email or web address] [email or web address] 05/31/21 11:07 DJO Document 05/31/21 10:35 [email or web address] [email or web address] 05/31/21 11:07 DJO Document 05/31/21 10:40 [email or web address] [email or web address] 05/31/21 11:07 DJO Document 05/31/21 10:45 [email or web address] [email or web address] 05/31/21 11:07 DJO Document 05/31/21 10:55 [email or web address] [email or web address] 05/31/21 11:07 DJO 05/31/21 05/31/21 05/31/21 10:30 10:35 10:40 Home O2 Evaluation Test Phase Resting Resting Exercise Oxygen Delivery Room Air Nasal Cannula Nasal Cannula Oxygen Flow Rate (L/min) 1 1 Pulse Oximetry (90-100 %) 88 L 90 88 L Pulse Rate (60-100 beats/min) 74 72 86 Treatment Charges O2 Evaluation - Inpatient 05/31/21 05/31/21 10:45 10:55 Home O2 Evaluation Test Phase Exercise Resting Oxygen Delivery Nasal Cannula Nasal Cannula Oxygen Flow Rate (L/min) 2 1 Pulse Oximetry (90-100 %) 91 90 Pulse Rate (60-100 beats/min) 87 76 Treatment Charges
--- NOTE | 2021-05-31 11:14 | PCDIET ---
Nutrition consult for CHF. See Nutritional Teaching Intervention. Thank you for the consult.
--- NOTE | 2021-05-31 14:31 | PCRCNOTE ---
HOME OXYGEN SET UP WITH [facility]. PHONE NUMBER [phone]. TANK HAS BEEN DELIVERED TO PT'S ROOM FOR DISCHARGE.
--- NOTE | 2021-05-31 15:23 | PM.DS ---
DS: Admitting Diagnosis Admitting Diagnosis CHF exacerbation DS: Discharge Diagnosis Discharge Diagnosis (1) Paroxysmal atrial fibrillation: Code(s): I48.0 - Paroxysmal atrial fibrillation Status: Acute (2) Acute hypoxemic respiratory failure: Code(s): J96.01 - Acute respiratory failure with hypoxia Status: Acute (3) CHF exacerbation: Qualifiers: Heart failure type: systolic Qualified Code(s): I50.23 - Acute on chronic systolic (congestive) heart failure Code(s): I50.9 - Heart failure, unspecified Status: Acute (4) History of GI bleed: Code(s): Z87.19 - Personal history of other diseases of the digestive system Status: Acute (5) Lower extremity edema: Code(s): R60.0 - Localized edema Status: Acute (6) Chest pain: Code(s): R07.9 - Chest pain, unspecified Status: Acute (7) Elevated troponin: Code(s): R77.8 - Other specified abnormalities of plasma proteins Status: Resolved (8) Hyponatremia: Code(s): E87.1 - Hypo-osmolality and hyponatremia Status: Acute (9) Acute on chronic congestive heart failure: Code(s): I50.9 - Heart failure, unspecified Status: Resolved (10) CAD (coronary artery disease): Code(s): I25.10 - Atherosclerotic heart disease of [place] coronary artery without angina pectoris Status: Acute (11) Type II diabetes mellitus with complication: Code(s): E11.8 - Type 2 diabetes mellitus with unspecified complications Status: Acute (12) Anemia: Qualifiers: Anemia type: unspecified type Qualified Code(s): D64.9 - Anemia, unspecified Code(s): D64.9 - Anemia, unspecified Status: Acute (13) Hypothyroidism, unspecified: Qualifiers: Hypothyroidism type: unspecified Qualified Code(s): E03.9 - Hypothyroidism, unspecified Code(s): E03.9 - Hypothyroidism, unspecified Status: Acute (14) Mixed hyperlipidemia: Code(s): E78.2 - Mixed hyperlipidemia Status: Acute DS: Summary Hospital Course Reason for hospitalization: CC shortness of breath Hospital Course: 81-year-old female with past medical history significant for prior history of STEMI coronary artery disease status post stent placement in 2010, peptic ulcer disease, cholecystitis status post drain placement (now removed) and heart failure with reduced ejection fraction presented with shortness of breath and was managed as a case of CHF exacerbation. She was also noted to have elevated troponin which later trended down. Cardiology was brought on board and follow the patient during the admission. She was started on Entresto after washout period of Losartan. She was also managed for acute hypoxic respiratory failure. And is now being discharged on 2-3 L of nasal cannula. She is to follow up with her outpatient city attorney. Time Spent with Patient Time attestation: Total time spent providing and/or coordinating discharge services:35 minutes Time spent: Greater than 30 minutes Exam Const: General: cooperative Orientation/consciousness: oriented to person, oriented to place and oriented to time HENMT: Head: normal to inspection Neck: Neck: normal visual inspection Chest: Chest palpation & inspection: normal inspection of the chest Resp: Auscultation: diminished lung sounds Cardio: Jugular venous distension: no JVD GI: Inspection: normal to inspection GI Palp: Yes Soft to palpation Auscultation: normal bowel sounds Skin: General skin exam: normal color and no rashes or lesions noted Neuro: General: oriented to person, oriented to place, oriented to time and patient oriented x3 Speech: normal speech Motor exam (neuro): 5/5 motor strength present throughout DS: Data Data Completed and Pending Labs on day of discharge: Labs from last 24 hours 05/31/21 05/31/21 05:16 05:16 WBC 9.1 RBC 3.57 L Hgb 9.9 L Hct 31.7 L MCV
== END 2021-05-31 17:40 | disposition home health service (06) | DRG 291 ==
LOC: ANHED 05-27 00:08 → ANHIMU 05-27 04:07 → ANH2MED 05-31 08:03 → ANHIMU 06-01 13:36
PROVIDERS: Internal Medicine; Nurse Practitioner; Student in an Organized Health Care Education/Training Program; Admitting Provider Internal Medicine; Emergency Provider Emergency Medicine; PCP Family Medicine; Visit Provider Internal Medicine
DX: I50.23 Acute on chronic systolic (congestive) heart failure (principal); J96.01 Acute respiratory failure with hypoxia; Z20.822 Contact with and (suspected) exposure to COVID-19; R07.9 Chest pain, unspecified; R77.8 Other specified abnormalities of plasma proteins; I25.10 Atherosclerotic heart disease of native coronary artery without angina pectoris; I48.0 Paroxysmal atrial fibrillation; D64.9 Anemia, unspecified; R60.0 Localized edema; M40.294 Other kyphosis, thoracic region; K25.9 Gastric ulcer, unspecified as acute or chronic, without hemorrhage or perforation; R13.10 Dysphagia, unspecified; F41.9 Anxiety disorder, unspecified; E03.9 Hypothyroidism, unspecified; E78.2 Mixed hyperlipidemia; E11.51 Type 2 diabetes mellitus with diabetic peripheral angiopathy without gangrene; E11.42 Type 2 diabetes mellitus with diabetic polyneuropathy; E11.22 Type 2 diabetes mellitus with diabetic chronic kidney disease; N18.31 Chronic kidney disease, stage 3a; Z87.19 Personal history of other diseases of the digestive system; I25.2 Old myocardial infarction; Z79.01 Long term (current) use of anticoagulants; Z79.899 Other long term (current) drug therapy; Z95.5 Presence of coronary angioplasty implant and graft
CPT/HCPCS: 36415; 36600; 71045; 80048; 80053; 82805; 83735; 83880; 84484; 85025; 85027; 85610; 85730; 87040; 93005; 93970; 94618; 94640; 96374; 97161; 99285; A9270; C9803; J1940; J2405; U0003; U0005

== ENCOUNTER → 2021-09-18 15:13 | Outpatient (CLI) | payer MEDICARE, BC, SELFPAY ==
--- NOTE | ~2021-09-18 | XR_ITS ---
EXAMINATION: XR foot RT min 3V EXAM DATE: 09/18/2021 15:46 INDICATION: L97.509 - Non-pressure chronic ulcer of other part of uns... . ulcer of RT foot medial s brandon of 1st mtp joint. x 1.5 months. TECHNIQUE: Right foot dorsoplantar, lateral and oblique projections obtained and reviewed. There is no prior study for comparison. FINDINGS: There is right hallux valgus and mild polyarticular primary osteoarthritis. Some scattered vascular calcifications and tiny inferior calcaneal spur. There are no bony erosions identified. No periosteal reaction or band of sclerosis to suggest subacute stress fracture. There are no acute frac tures identified. No radiopaque foreign bodies identified. IMPRESSION: Chronic right foot findings. Reviewed, dictated and finalized at location A. COMMUNICATIONS FACILITY EXAMINER
== END ==
PROVIDERS: PCP Family Medicine; Visit Provider Physician Assistant
DX: L97.509 Non-pressure chronic ulcer of other part of unspecified foot with unspecified severity (principal)
CPT/HCPCS: 73630

== ENCOUNTER 2021-10-02 13:53 | Inpatient (IN) | payer MEDICARE, BC, SELFPAY ==
[2021-10-02] VITALS (47 sets, daily range): BP systolic 79–148; BP diastolic 37–100; PULSE 50–99; RESP 13–24; TEMP 36.1–36.3; O2SAT 95–100
--- NOTE | ~2021-10-02 | US_ITS ---
EXAMINATION: US renal BI DATE: 10/03/2021 10:19 INDICATION: Renal failure TECHNIQUE: Multiple ultrasound grayscale images of the kidneys were obtained. COMPARISON: None. FINDINGS: The right kidney measures 10.2 x 4.2 x 4.5 cm. The left kidney measures 8.9 x 4.3 x 4.3 cm. The kidne ys demonstrate normal echogenicity. 1.1 cm anechoic left renal cyst. There is no hydronephrosis in ei ther kidney. No stones identified. The bladder is decompressed around a Patricia catheter which limits evaluation. IMPRESSION: 1. 1.1 cm left renal cyst. Otherwise normal kidneys without hydronephrosis. Reviewed, dictated and finalized at location A. RER
--- NOTE | ~2021-10-02 | XR_ITS ---
XR abdomen NG/feed tube insert INDICATION: Evaluate NG tube position. TECHNIQUE: Limited KUB perform for evaluating NG tube . COMPARISON: No prior studies for comparison. FINDINGS: NG tube tip in the stomach. Visualized bowel gas pattern is nonspecific.There is left basi lar airspace disease. IMPRESSION: 1: NG tube tip in the stomach. 2: Left basilar airspace disease which may represent atelectasis or pneumonia. Reviewed, dictated and finalized at location A. OLOGY SPECIAL PROCEDURE TECH
--- NOTE | ~2021-10-02 | CT_ITS ---
EXAMINATION: CT brain wo con, CT cervical spine wo con EXAM DATE: 10/02/2021 14:28 INDICATION: Ventilator. Unresponsive. Respiratory failure. TECHNIQUE: Spiral CT of the head was performed without contrast. Axial, coronal and sagittal images were reviewed. Spiral CT of the cervical spine was performed without contrast. Axial images were rev iewed. Coronal and sagittal reformatted images were also reviewed. The dose-length product (DLP) fo r this examination was 605.33 (accession [id number]), 116.04 (accession [id number]) mGy-cm. The exposure was tailored according to patient size, and iterative reconstruction (ASIR) was used as additional dose reduction technique. Comparison is made to prior examination from 03/11/2021. 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 Scattered regions of old infarction in the righ t frontal lobe white matter and paramedian cortex. There is no acute intraparenchymal hemorrhage. No evidence of intraparenchymal brain mass lesion. No evidence of acute infarction. There is periventr icular and subcortical hypodensity, nonspecific but probably related to small vessel ischemic disease . There is prominence of the sulci and ventricles related to cerebral atrophy. There is no mass effect or midline shift. There is no obstructive hydrocephalus suspected. There are no extra-axial c ollections. There are no acute calvarial fractures. Patient has had bilateral ocular lens surgery. Soft tissue is unremarkable. The visualized sinuses and mastoid air cells are well aerated. CERVICAL CT: There is no evidence of acute cervical fracture. The odontoid process is intact. Pre- dens space is normal. Prevertebral soft tissue is normal. There are no soft tissue abnormalities id entified. There is no disc space widening or traumatic vertebral body subluxation suspected. Advanc ed cervical spondylosis. A detailed level by level evaluation of spondylosis can be added as addendu m if requested. IMPRESSION: 1. No acute intracranial findings or cervical fracture. 2. 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 Cervical spondylosis. Reviewed, dictated and finalized at location B. GEMENT MANAGER IMPRESSION: 1. No acute intracranial findings or cervical fracture. 2. 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 Cervical spondylosis.
--- NOTE | ~2021-10-02 | XR_ITS ---
EXAMINATION: XR chest 1V portable DATE: 10/04/2021 11:12 INDICATION: Hypoxia. TECHNIQUE: A single frontal view of the chest was obtained. COMPARISON: Chest single view 10/02/2021, CT abdomen and pelvis 03/06/2021 FINDINGS: There is a diffuse interstitial pattern in the lungs. There are airspace opacities in all l shea zones bilaterally with a perihilar predominance. No pleural effusion or pneumothorax. Cardiomegal y is noted. IMPRESSION: 1. Worsened diffuse lung disease, likely moderate pulmonary edema. Pneumonia is less likely. 2. Cardiomegaly. Reviewed, dictated and finalized at location A. ETING CONTENT SPECIALIST
--- NOTE | ~2021-10-02 | US_ITS ---
EXAMINATION: US carotid duplex BI DATE: 10/03/2021 18:13 INDICATION: Carotid bruit TECHNIQUE: Grayscale, color Doppler, and pulsed Doppler images of the cervical carotid arteries were obtained. The degree of vessel stenosis is placed in one of the following categories: normal, <50%, 5 0-69%, >=70% but less than near-occlusion, near-occlusion, or total occlusion. Note that percent sten osis relative to normal distal artery lumen diameter is indirectly measured from velocity measurement s as described by Aly, et al. Radiology 2003; 229:340-346. Notes: Normal: Peak systolic velocity <125 centimeters/sec and no plaque <50%. Peak systolic velocity <125 ( EDV <40; ICA/CCA PSV ratio <2.0; used these factors only a tandem lesions or low cardiac output or co ntralateral disease) 50-69 %: PSV 125-230 (EDV 40-100; ratio 2-4) >= 70% but less than near occlusion: PSV greater than 230 (EDV > 100; ratio> 4.0) Near Occlusion: PSV that is variable; markedly narrowed lumen Occlusion: Absent flow on color/spectral Doppler and no lumen on velazquez scale. COMPARISON: None. FINDINGS: RIGHT: The right common carotid artery (CCA) peak systolic velocity (PSV) is 128 cm/s. The right internal ca rotid artery (ICA) PSV is 86 cm/s. The right ICA end-diastolic velocity (EDV) is 26 cm/s. The right I CA/CCA PSV ratio is 0.68. The external carotid artery (ECA) PSV is 187 cm/s. There is antegrade flow in the right vertebral artery. LEFT: The left CCA PSV is 105 cm/s. The left ICA PSV is 115 cm/s. The left ICA EDV is 33 cm/s. The left ICA /CCA PSV ratio is 1.1. The ECA PSV is 109 cm/s. There is antegrade flow in the left vertebral artery . IMPRESSION: 1. Less than 50% stenosis in the right internal carotid artery by sonographic criteria. 2. Less than 50% stenosis in the left internal carotid artery by sonographic criteria. Reviewed, dictated and finalized at location A. NILE COUNSELOR IMPRESSION: 1. Less than 50% stenosis in the right internal carotid artery by sonographic jordin siddiqui. 2. Less than 50% stenosis in the left internal carotid artery by sonographic james yu.
--- NOTE | ~2021-10-02 | XR_ITS ---
EXAMINATION: XR chest 2V DATE: 10/06/2021 12:35 INDICATION: Fever TECHNIQUE: AP and lateral views of the chest are obtained. COMPARISON: 10/04/2021 FINDINGS: There are small pleural effusions. Minimal airspace opacities are present in the lung bases . A diffuse interstitial pattern persists but has significantly improved. Cardiomegaly is noted. Ther e is no pneumothorax. There is moderate thoracic spondylosis. IMPRESSION: 1. Cardiomegaly with improving pulmonary edema. 2. Small pleural effusions. 3. Bibasilar airspace opacities, likely atelectasis. Reviewed, dictated and finalized at location A. IDE GRINDER
--- NOTE | ~2021-10-02 | US_ITS ---
EXAMINATION: US abdomen limited EXAM DATE: 10/03/2021 10:20 INDICATION: Elevated liver function tests. Respiratory failure. TECHNIQUE: Multiple grayscale and Doppler images of the abdomen right upper quadrant were obtained (devon y a technologist who performed the scan) and subsequently reviewed. Comparison is made to prior exami nation from 02/08/2012 . FINDINGS: The pancreatic head and body are normal in appearance. The pancreatic tail is not visualized. The l iver has normal echogenicity and contour. There are no focal liver lesions identified. Portal tj ous flow was seen in the hepatopedal, normal direction and has normal Doppler waveform. No right-ruth ed hydronephrosis. Common bile duct measures 10 mm, which is dilated. There is some intrahepatic biliary duct dilation. Common bile duct was normal on CT scan in February. Possibility of some debris within the gallbladder. Gal lbladder wall is normal in thickness, no calcified cholelithiasis or pericholecystic fluid. IMPRESSION: Development of mild to moderate biliary dilation without identifiable etiology. Consider MRI/MRCP on follow-up if bilirubin is elevated. Reviewed, dictated and finalized at location B. D RADIO TECHNICIAN IMPRESSION: Development of mild to moderate biliary dilation without identifiab le etiology. Consider MRI/MRCP on follow-up if bilirubin is elevated.
--- NOTE | ~2021-10-02 | MR_ITS ---
EXAMINATION: MR brain/brain stem wo con DATE: 10/03/2021 15:13 INDICATION: Altered mental status. TECHNIQUE: Magnetic resonance imaging (MRI) of the brain and brainstem was performed without intraven ous contrast. Sequences included sagittal and axial T1-weighted FSE, axial diffusion-weighted FS EPI, axial T2*-weighted GRE, axial T2-weighted FLAIR Propeller, and axial T2-weighted Propeller. Apparent diffusion coefficient (ADC) maps were created. COMPARISON: Head CT 10/02/2021 FINDINGS: There is chronic encephalomalacia in right frontal lobe. There are scattered areas of nonsp ecific increased T2-weighted signal intensity in the cerebral white matter. There is no intracranial hemorrhage, acute infarction, or abnormal intracranial mass lesion. The ventricles are normal in size . There are likely changes of ocular lens replacement surgeries. There are changes of right-sided scl eral banding procedure. There is a small right mastoid effusion. There is mucosal thickening in the p aranasal sinuses. IMPRESSION: 1. Chronic encephalomalacia in the right frontal lobe. 2. Mild nonspecific cerebral white matter disease, which likely represents chronic small vessel ische litzy disease. Reviewed, dictated and finalized at location A. ANALYST IMPRESSION: 1. Chronic encephalomalacia in the right frontal lobe. 2. Mild nonspecific cerebral white matter disease, which likely represents terminal superintendent janey small vessel ischemic disease.
--- NOTE | ~2021-10-02 | XR_ITS ---
EXAMINATION: XR chest ET placement EXAM DATE: 10/02/2021 14:14 INDICATION: Endotracheal tube placement. TECHNIQUE: Portable AP frontal chest x-ray was obtained. Comparison is made to prior examination from 05/26/2021. FINDINGS: Endotracheal tube tip is 2.6 centimeters above the francisco. Indistinct reticulation, could indicate mild pulmonary edema or viral pneumonia. Significant improvement in this compared to prior s tudy. No pneumothorax. No pleural effusion. The cardiomediastinal silhouette is prominent but magnifi ed on this AP technique. There are bony degenerative changes. IMPRESSION: 1. ET tube in position. 2. Indistinct reticulation, edema or pneumonia. Reviewed, dictated and finalized at location B. MAN
--- NOTE | 2021-10-02 14:03 | PC.NURSE ---
MD Anand, RT, and multiple RNs at bedside preparing for intubation. 15 of etomidate being administered at this time.
--- NOTE | 2021-10-02 14:05 | PC.NURSE ---
Pt intubated by MD Anand at this time. 7.5 tube, 23 at teeth. BS equal bilaterally. X-ray called to verify placement.
--- NOTE | 2021-10-02 14:13 | ECG_ITS ---
Measurements Intervals [place] Rate: 97 P: 74 WI: 164 QRS: 25 QRSD: 154 T: 141 QT: 368 QTc: 468 Interpretive Statements SINUS RHYTHM LEFT BUNDLE BRANCH BLOCK BASELINE ARTIFACT- II, III, AVR, AVF, V3-V6 ABNORMAL ECG Electronically Signed On 10-02-2021 14:18:22 METAL ENGINEERING PROCESS WORKER by Anatoliy Bolton D.O.
[2021-10-02 14:33] LABS: Basophils Percent Auto 0.6 % (0.2-1.2); Eosinophils Absolute Auto 0.1 K/mm3 (0-0.3); Eosinophils Percent Auto 1.3 % (0-4.4); Hematocrit 33.3 % (37.0-47.0); Hemoglobin 10.9 g/dL (12.0-15.0); Immature Granulocyte Absolute 0.02 K/mm3 (0.00-0.031); Immature Granulocyte Percent A 0.3 % (0-0.5); Lymphocytes Absolute Auto 3.62 K/mm3 (0.9-3.2); Lymphocytes Percent Auto 52.7 % (18.3-44.2); Mean Corpuscular HGB Conc 32.7 g/dl (32-36); Mean Corpuscular Hemoglobin 30.5 pg (26-34); Mean Corpuscular Volume 93.3 fl (80-100); Mean Platelet Volume 11.1 fl (7.4-10.4); Monocytes Absolute Auto 0.6 K/mm3 (0.1-0.6); Monocytes Percent Auto 9.3 % (2.6-8.5); Neutrophils Absolute Auto 2.5 K/mm3 (1.3-6.7); Neutrophils Percent Auto 35.8 % (45.5-73.1); Platelet Count Result 204 k/mm3 (150-375); Red Blood Count 3.57 M/mm3 (4.2-5.4); Red Cell Distribution Width 15.1 % (11.5-14.5); White Blood Count 6.9 K/mm3 (4.5-10.0)
[2021-10-02 14:39] LABS: Alanine Aminotransferase 108 U/L (4-35); Albumin Level 4.4 g/dL (3.5-5.1); Alkaline Phosphatase 92 U/L (38-126); Anion Gap 11 mmol/L (8-16); Aspartate Amino Transferase 86 U/L (14-36); Bilirubin,Total 0.3 mg/dL (0.2-1.3); Blood Urea Nitrogen 31 mg/dL (7-17); Calcium 8.9 mg/dL (8.4-10.2); Carbon Dioxide 18 mmol/L (22-30); Chloride 96 mmol/L (98-107); Estimated Glomerular Filt Rate 29; Glucose 174 mg/dL (65-110); Potassium 4.3 mmol/L (3.4-5.0); Sodium 125 mmol/L (137-145)
[2021-10-02 14:45] LABS: INR 1.1; Partial Thromboplastin Time 31.1 SECONDS (22.3-36.8); Prothrombin Time 14.3 Seconds (11.1-14.7)
[2021-10-02] MEDS: PROPOFOL IV EMULSION 100 ML 1.78 MG IV CONT (15:00)
--- NOTE | 2021-10-02 15:00 | PC.NURSE ---
Pt with dilated pupils, 5mm bilaterally, equal and reactive. Pt with no purposeful movement, does not seem to follow any commands, however patient able to move all extremities. Pt nibbling on tube, turning head side to side, moving RUE primarily. Starting propofol for sedation.
[2021-10-02 15:31] LABS: Lactic Acid Reflex 2.6 mmol/L (0.7-2.1)
[2021-10-02 15:40] LABS: Amphetamine Screen Urine Negative (Negative); Barbiturate Screen Urine Negative (Negative); Benzodiazepines Screen Urine Negative (Negative); Cannabinoid Screen Urine Negative (Negative); Cocaine Screen Urine Negative (Negative); Methadone Screen Urine Negative (Negative); Opiate Screen Urine Negative (Negative); Phencyclidine Screen Urine Negative (Negative)
[2021-10-02 15:43] LABS: Add Urine Microscopic? NO; Appearance Urine Clear (Clear); Bilirubin Urine Negative (Negative); Blood Urine Negative (Negative); Color Urine Straw (Yellow); Glucose Urine UA Negative (Negative); Ketones Urine Negative (Negative); Leukocyte Esterase Ur Negative LEU/UL (Negative); Nitrate Urine Negative (Negative); Protein Urine Negative (Negative); Urobilinogen Urine Negative mg/dL (<2.0)
--- NOTE | 2021-10-02 15:50 | ED.GENADULT ---
HPI - General Adult General Chief complaint: Altered Mental Status Stated complaint: unresponsive Time Seen by Provider: 10/02/21 14:08 Source: family and EMS History of Present Illness HPI narrative: Patient is a 81 y/o female brought in by unresponsiveness. Son states that he was in a different when heard some sound. He thought the patient had a fall. He went to check on her and found her unresponsive laying on a couch. EMS was called. When EMS arrived, patient was still unresponsive. I-gel airway was inserted for airway protection. Patient is unable to provide additional history. Related Data Home Medications Medication Instructions Recorded Confirmed gabapentin 300 mg capsule 300 mg PO BID 07/26/21 07/26/21 nitroglycerin 0.3 mg sublingual 0.3 mg SUBLINGUAL Q5M PRN 09/18/21 tablet pantoprazole 40 mg tablet,delayed 40 mg PO .qod tablet 09/18/21 release Allergies Allergy/AdvReac Type Severity Reaction Status Date / Time No Known Allergies Verified 09/18/21 14:39 Review of Systems Review of Systems: ROS unobtainable: Yes unobtainable due to mental status PMFSH Past Medical History Medical History Acute blood loss anemia Allergic rhinitis Atherosclerotic heart disease of [place] coronary artery without angina pectoris Atrial fibrillation Chronic low back pain without sciatica Chronic renal insufficiency, stage III (moderate) Gastric ulcer Hypothyroidism, unspecified [place] Mixed hyperlipidemia Peripheral neuropathy, idiopathic PVD (peripheral vascular disease) Thoracic kyphosis Type 2 diabetes mellitus without complication Vitamin D deficiency Surgical History Surgical History Fracture of left hip requiring operative repair H/O heart artery stent History of carpal tunnel surgery of right wrist History of cataract surgery History of inguinal hernia repair Interdigital neuroma of left foot Rotator cuff arthropathy of right shoulder Family History Family History Mother Family history of heart disease in male family member before age 55 Hypertension Father Family history of lung cancer Sibling Family history of heart disease in male family member before age 55 Other Family history of cardiovascular disease Family history of coronary artery disease Social History Social History Second hand tobacco smoke exposure: No Alcohol intake: never Substance use: never Substance use type: does not use Gender identity (if verbalized by the patient): Female Spiritual care concerns: No Exam Const: General: no acute distress Orientation/consciousness: patient obtunded HENMT: Head: normocephalic Ears: external ears normal General nose exam: Normal external nose present Eyes: General: appearance normal, both eyes and all related structures Conjunctivae: conjunctivae normal Neck: Neck: normal visual inspection and full ROM Chest: Chest palpation & inspection: normal inspection of the chest and no tenderness Resp: Effort & Inspection: normal respiratory effort Auscultation: clear to auscultation bilaterally Cardio: Rate: regular rate Rhythm: regular rhythm GI: GI Palp: No abdominal tenderness and Yes Soft to palpation Skin: General skin exam: normal color and turgor normal Extrem: General: normal to inspection, full ROM and no pedal edema Psych: Appearance: grossly normal Affect: Blunted affect present Course Reevaluation(s) Reevaluation #1: Discussed with Dr. Castro, who accepts the patient to ICU and will consult. Date: 10/02/21 Time: 15:42 Reevaluation #2: Discussed with ELLE Pleitez, who agrees to admit. Date: 10/02/21 Time: 15:44 Vital Signs Vital signs: Vital Signs Pulse Rate 99 10/02/21 13:54 Respiratory Rate 18 10/02/21 13:54 Blood Pressure 148
--- NOTE | 2021-10-02 17:07 | PC.NURSE ---
OG tube placed, difficulty with NG. Unable to place prior than now due to pt gagging/not adequately sedated, attempted multiple times previously. Pt also bradycardic, HR in the 50's consistently. MD Anand made aware.
[2021-10-02 18:15] LABS: Reflex Lactic Acid Yes or No Add Lactic
--- NOTE | 2021-10-02 18:50 | PC.NURSE ---
Upon reassessment, pt remains bradycardic. Nicolle ALMEIDA made aware. Pt responsive to pain and chews on tube to voice. Propofol continues infusing for sedation. Pupils 3's, equal and reactive. VS as documented. Awaiting admission bed assignment.
--- NOTE | 2021-10-02 19:00 | PM.IMHP ---
H&P: HPI History of Present Illness Date/Time: 10/02/21 19:00 Chief Complaint: Unresponsive. Narrative: This is an 81-year-old female with atrial fibrillation, congestive heart failure, chronic kidney disease, hypothyroidism, diabetes, and peripheral vascular disease who presented to the emergency department earlier today via EMS from home for evaluation after she was found unresponsive. She is intubated and on mechanical ventilation and thus cannot provide any history and as such of the following is obtained via a review of her electronic medical records as well as discussions with her son. She reportedly was in her usual state of health earlier today and had not had any complaints. Not long prior to arrival the patient's son heard some noise in the other room and he thought perhaps his mother had had a flare. When he went to check on her she was lying on the couch and was unresponsive but breathing. He called 911 and on EMS arrival she was reportedly limp and unresponsive to noxious stimuli. Intubation was attempted in route but was unsuccessful and she was intubated on arrival. Her vital signs has been stable. Pertinent labs include a creatinine a bit elevated from baseline as well as and elevated troponin level in the setting of a left bundle branch block which is new in the last several months. Brain CT showed no acute findings. Review of Systems Review of Systems: Unable to obtain as she is currently sedated, intubated, and on mechanical ventilation [facility] Past Medical History Medical History (Updated 10/03/21 @ 00:20 by Pricilla Pratt PA-C) Allergic rhinitis Atherosclerotic heart disease of [place] coronary artery without angina pectoris Atrial fibrillation Chronic anemia Chronic hyponatremia Chronic low back pain without sciatica Chronic renal insufficiency, stage III (moderate) Congestive heart failure Echocardiogram in February 2021 showed reduced left ventricular systolic function with an EF of 35% and akinesis of the basal inferior wall with hypokinesis of the apical septal, apical and mid anterior marroquin. Grade 2 diastolic dysfunction also noted. Gastric ulcer Hypothyroidism, unspecified Mixed hyperlipidemia Peripheral neuropathy, idiopathic Peripheral vascular disease Thoracic kyphosis Type 2 diabetes mellitus without complication Vitamin D deficiency Surgical History Surgical History (Updated 10/03/21 @ 00:14 by Pricilla Pratt PA-C) Fracture of left hip requiring operative repair History of carpal tunnel surgery of right wrist History of cataract surgery History of heart artery stent History of inguinal hernia repair History of repair of right rotator cuff History of sinus surgery Interdigital neuroma of left foot Family History Family History Mother Family history of heart disease in male family member before age 55 Hypertension Father Family history of lung cancer Sibling Family history of heart disease in male family member before age 55 Other Family history of cardiovascular disease Family history of coronary artery disease Social History Social History (Updated 10/03/21 @ 00:14 by Pricilla Pratt PA-C) Social History: Surrogate decision maker: Garcia Srinivasan, son. Code status: Full code. Smoking status: Never smoker Second hand tobacco smoke exposure: No Alcohol intake: never Substance use: never Substance use type: does not use Meds Home Medications and Allergies Home Medications Medication Instructions Recorded Confirmed Type amiodarone [Pacerone] 200 mg PO DAILY 30 Days #30 tablet 05/31/21 10/02/21 Rx apixaban [Eliquis] 2.5 mg PO BID 30 Days #60 tablet 05/31/21 10/02/21 Rx metoprolol succinate [Toprol XL] 25 mg PO DAILY 30 Days #30 tablet 05/31/21 10/02/21 Rx potassium chloride [K-Tab] 20 meq PO DAILY 30 Days #30 tablet 05/31/21 10/02/21 Rx sacubitril-valsartan [Entresto] 1 tablet PO Q12HR 30 Days #30
[2021-10-02 20:31] LABS: Lactic Acid Reflex 1.4 mmol/L (0.7-2.1)
[2021-10-02 20:32] LABS: Anion Gap 7 mmol/L (8-16); Blood Urea Nitrogen 29 mg/dL (7-17); Calcium 8.5 mg/dL (8.4-10.2); Carbon Dioxide 23 mmol/L (22-30); Chloride 96 mmol/L (98-107); Creatine Kinase 61 U/L (30-135); Estimated Glomerular Filt Rate 36; Glucose 112 mg/dL (65-110); Potassium 5.2 mmol/L (3.4-5.0); Sodium 126 mmol/L (137-145)
[2021-10-02 20:33] LABS: D Dimer 0.41 ug/mL (<0.48)
[2021-10-02 20:49] LABS: NT Pro B Type Natriuretic Pept 5050 pg/mL (5-100)
[2021-10-02] MEDS: PROPOFOL IV EMULSION 100 ML 14.21 MG IV CONT (21:54)
--- NOTE | 2021-10-02 22:00 | PC.NURSE ---
pt propofol dose ran out. Per ED charge nurse began new vial of propofol at this time
[2021-10-02 23:50] LABS: Troponin I 0.111 ng/mL (0.000-0.034)
--- NOTE | 2021-10-02 23:55 | PC.NURSE ---
Milton Zelaya states that pt received both Moderna covid vaccinations and the Moderna booster on 09/18/21.
[2021-10-03] VITALS (22 sets, daily range): BP systolic 90–133; BP diastolic 46–77; PULSE 51–83; RESP 13–29; TEMP 36.7–36.9; O2SAT 95–100; BMI 21.1
--- NOTE | 2021-10-03 | ECHO_ITS ---
Patient Info Name: Layla Srinivasan Age: 81 years : 1940 Gender: Female Ht: 60 in Wt: 108 lbs BSA: 1.44 m2 HR: 58 bpm BP: 100 / 77 mmHg Exam Date: 10/03/2021 9:57 AM Exam Location: [facility] Patient Status: Inpatient Admit Date: 10/02/2021 Staff Ordering Physician: Ishan Nava MD Supervisor Refractory Products: VANESSA Attending Provider: Cb Cha MD Exam Type: CA echo doppler color flow Study Info Indications I21.4 - Non-ST elevation (NSTEMI) myocardial infarction Complete two-dimensional, color flow and Doppler transthoracic echocardiogram is performed. Summary 1. Complete two-dimensional, color flow and Doppler transthoracic echocardiogram is performed. 2. Mild LVH, borderline LV enlargement, moderate LV systolic dysfunction with segmental wall motion abnormality; ejection fraction about 35%; basal inferior segment aneurysmal. Normal LV size, mild RV dysfunction. Moderate left atrial enlargement. Mitral valve leaflets mildly thickened with mitral annular calcification, mild mitral stenosis, mean gradient 3 mmHg. Mild aortic valve calcification, mild aortic stenosis, valve area 1.6 cm2, maximum velocity 2.1 m/sec, mean gradient 8 mmHg. Mild TR, moderate pulmonary hypertension, RVSP 48 mmHg. Normal sinus rhythm. Left Ventricle Left ventricular systolic function is moderately reduced, estimated at 30-35%. The left ventricular diastolic function is abnormal. Right Ventricle Right ventricular chamber dimension is normal. Right ventricular systolic function is reduced. Left Atria Left atrial chamber dimension is moderately enlarged. Right Atria Right atrial chamber dimension is mildly enlarged. Aortic Valve There is mild aortic valve stenosis with a peak velocity of 211 cm/s, mean gradient of 8 mmHg, and aortic valve area of 1.6 cm2. There is mild aortic valve calcification. Pulmonic Valve The pulmonic valve is not well visualized. There is mild pulmonic regurgitation. Mitral Valve The mitral valve has thickened leaflets. There is mild mitral valve stenosis. There is mild mitral valve regurgitation. There is mild mitral valve calcification. Tricuspid Valve The tricuspid valve leaflets are normal. There is mild tricuspid valve regurgitation. Moderate pulmonary hypertension, estimated pulmonary arterial systolic pressure is 48 mmHg. Pericardium/Pleural There is trivial pericardial effusion. Inferior Vena Cava Normal inferior vena cava with >50% collapse upon inspiration consistent with normal right atrial pressure, 10 mmHg. Aorta The aortic root size at the sinus of Valsalva is normal. Left Ventricular Outflow Tract Name Value Normal LVOT 2D LVOT Diameter 2.0 cm LVOT Doppler LVOT Peak Gradient 4 mmHg LVOT Mean Gradient 2 mmHg LVOT VTI 23 cm LVOT VTI/AV VTI Ratio 0.5 LVOT Stroke Volume 68 ml LVOT CO 4.1 l/min LVOT CI 2.9 l/min/m2 Pulmonic Valve
[2021-10-03 00:11] LABS: Glucose Point of Care 101 mg/dl (65-105)
[2021-10-03 00:52] LABS: Creatine Kinase 65 U/L (30-135); Magnesium 2.1 mg/dL (1.6-2.3)
[2021-10-03] MEDS: HEPARIN SOD/D5W 100 UNITS/ML 25,000 UNITS/250 ML BAG 6 UNITS IV CONT (01:01)
[2021-10-03] MEDS: HEPARIN SODIUM 5,000 UNITS/ML VIAL 3000 UNITS IV PUSH (01:02)
[2021-10-03 01:27] LABS: Hepatitis B Surface Antigen Negative (Negative)
[2021-10-03 01:36] LABS: HAV RESULT Negative (Negative); Hepatitis B Core IgM Result Negative (Negative)
[2021-10-03 01:40] LABS: Sodium Urine Random 74 meq/L
[2021-10-03 01:54] LABS: Hepatitis C Virus Antibody Negative (Negative)
[2021-10-03 02:54] LABS: Basophils Percent Auto 0.1 % (0.2-1.2); Eosinophils Percent Auto 0.3 % (0-4.4); Hematocrit 29.4 % (37.0-47.0); Hemoglobin 9.6 g/dL (12.0-15.0); Immature Granulocyte Absolute 0.03 K/mm3 (0.00-0.031); Immature Granulocyte Percent A 0.4 % (0-0.5); Lymphocytes Absolute Auto 1.01 K/mm3 (0.9-3.2); Lymphocytes Percent Auto 13.9 % (18.3-44.2); Mean Corpuscular HGB Conc 32.7 g/dl (32-36); Mean Corpuscular Volume 91.9 fl (80-100); Mean Platelet Volume 11.3 fl (7.4-10.4); Monocytes Absolute Auto 0.6 K/mm3 (0.1-0.6); Monocytes Percent Auto 8.5 % (2.6-8.5); Neutrophils Absolute Auto 5.6 K/mm3 (1.3-6.7); Neutrophils Percent Auto 76.8 % (45.5-73.1); Platelet Count Result 174 k/mm3 (150-375); White Blood Count 7.3 K/mm3 (4.5-10.0)
[2021-10-03 03:10] LABS: INR 1.1; Prothrombin Time 14.1 Seconds (11.1-14.7)
[2021-10-03 03:12] LABS: Partial Thromboplastin Time 116.6 SECONDS (22.3-36.8)
[2021-10-03 03:22] LABS: Troponin I 0.101 ng/mL (0.000-0.034)
[2021-10-03] MEDS: PROPOFOL IV EMULSION 100 ML 10.3 MG IV CONT (05:00)
[2021-10-03 06:00] LABS: Alveolar/Arterial O2 Gradient 76.9 mmHg; Base Excess ABG -1.2 mEq/l (+/-2.0); Fractional Inspired Oxygen 40 %; HCO3 ABG 22.9 mEq/l (22.0-26.0); Oxygen Content ABG 14.9 %vol (16.0-22.0); Oxygen Saturation ABG 99.2 % (95.0-100.0); Oxyhemoglobin 97.4 % THb (90.0-100.0); PO2 ABG 166.9 mmHg (80.0-100.0); PO2 FiO2 Ratio Arterial Blood 4.17 %; Total Hemoglobin 10.6 g/dL (12.0-18.0); pH ABG 7.422 (7.350-7.450)
[2021-10-03 06:01] LABS: Device VENTILATOR; Modified Allen's Test Pass; Site Drawn LEFT RADIAL
[2021-10-03 06:02] LABS: Arterial Blood Gas PEEP 5 cmH2O; Arterial Blood Gas Vent Mode CMV; Arterial Blood Gas Ventilator rate 14 /MIN
[2021-10-03 06:03] LABS: Arterial Blood Gas Tidal Volume 350 ml
[2021-10-03] MEDS: LEVOTHYROXINE SODIUM INJ 100 MCG/5 ML VIAL 12.5 MCG IV PUSH (06:37)
[2021-10-03 08:15] LABS: Partial Thromboplastin Time 114.7 SECONDS (22.3-36.8)
[2021-10-03 09:28] LABS: Alveolar/Arterial O2 Gradient 33.3 mmHg; Base Excess ABG -1.9 mEq/l (+/-2.0); Device VENTILATOR; Fractional Inspired Oxygen 30 %; HCO3 ABG 20.5 mEq/l (22.0-26.0); Modified Allen's Test Pass; Oxygen Content ABG 14.8 %vol (16.0-22.0); Oxygen Saturation ABG 99.1 % (95.0-100.0); Oxyhemoglobin 97.3 % THb (90.0-100.0); PCO2 ABG 27.5 mmHg (35.0-45.0); PO2 ABG 148.3 mmHg (80.0-100.0); PO2 FiO2 Ratio Arterial Blood 4.94 %; Site Drawn RIGHT RADIAL; Total Hemoglobin 10.6 g/dL (12.0-18.0)
[2021-10-03 09:29] LABS: Arterial Blood Gas PEEP 5 cmH2O; Arterial Blood Gas Pressure Support 8 cmH2O; Arterial Blood Gas Vent Mode SPONTANEOUS
--- NOTE | 2021-10-03 10:15 | PM.CNCAR ---
Assessment and Plan Assessment and plan (1) Unresponsive episode: Code(s): R41.89 - Other symptoms and signs involving cognitive functions and awareness Status: Acute Assessment and Plan: 81-year-old female with CAD, history of PCI/stenting (stenting of proximal-mid left circumflex artery using a 2.5 x 18 mm Xience drug-eluting stent on 02/02/[address] Darnell), CHF with reduced ejection fraction, paroxysmal atrial fibrillation on chronic anticoagulation with apixaban, PAD being managed 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ly, diabetes mellitus, CKD, hypothyroidism on thyroxine replacement; history of CVA based on CT head. Patient admitted to the hospital after she was found to be unresponsive. Exact etiology of unresponsive episode uncertain at this time. Heart rhythm at the time of unresponsive event not available. On telemetry, patient has been in sinus rhythm. EKG shows sinus rhythm, left bundle branch block. Previous EKG had shown sinus rhythm with intraventricular conduction delay. Troponins are mildly elevated and essentially flat. Echocardiogram on preliminary assessment shows moderate LV systolic dysfunction, not significantly changed compared to the previous echo. Patient is fully responsive, although still on vent. She is being considered for extubation soon. -continue current supportive care; extubate when able. -resume home medications including anticoagulation. -event monitor at discharge to check for any significant arrhythmias. (2) Congestive heart failure: Code(s): I50.9 - Heart failure, unspecified Status: Acute Assessment and Plan: Resume outpatient CHF medications when able. (3) Elevated troponin: Code(s): R77.8 - Other specified abnormalities of plasma proteins Status: Resolved Assessment and Plan: Troponins are mildly elevated and essentially flat, and likely not ACS related. (4) Paroxysmal atrial fibrillation: Code(s): I48.0 - Paroxysmal atrial fibrillation Status: Acute Assessment and Plan: Currently in sinus rhythm. Anticoagulation with apixaban. History of Present Illness History of Present Illness Consult date/time: 10/03/21 10:15 DATE OF CONSULT: 10/03/2021 REASON FOR CONSULT: LBBB, elevated troponin REQUESTING PHYSICIAN: Pricilla Pratt PA-C CHIEF COMPLAINT: Brought to the hospital with loss of consciousness HPI: 81-year-old female with CAD, history of PCI/stenting (stenting of proximal-mid left circumflex artery using a 2.5 x 18 mm Xience drug-eluting stent on 02/02/[address] Darnell), CHF with reduced ejection fraction, paroxysmal atrial fibrillation on chronic anticoagulation with apixaban, PAD being managed 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ly, diabetes mellitus, CKD, hypothyroidism on thyroxine replacement; history of CVA based on CT head. Patient follows with Dr. Darnell for cardiovascular care. She was last seen in the outpatient cardiology clinic on 01/24/2021. Patient brought to [facility] Emergency Room on 10/02/2021 via EMS after patient was found to be unresponsive by her son. Patient was intubated and admitted to the ICU. At the time of evaluation, patient was intubated but was responsive and able to answer questions with gestures. She denied any chest pain or shortness of breath prior to the event. She denied any fever, cough. EKG on my personal evaluation showed sinus rhythm, heart rate 97 beats per minute, left bundle-branch block, ST depression and T-wave abnormality in the lateral leads. Prior EKG from 05/26/2021 showed sinus rhythm, intraventricular conduction delay. Troponins are minimally elevated and essentially flat at 0.1. D-dimer negative. TSH within normal limits. Chest x-ray showed indistinct reticulation, edema or pneumonia. Cervical spine and head CT showed No acute intracranial findings or cervical fracture; old right frontal lobe infarctions. Bedside echocardiogram on preliminary assessment showed moderate LV systolic dysfunctio
[2021-10-03 10:24] LABS: Anion Gap 6 mmol/L (8-16); Blood Urea Nitrogen 24 mg/dL (7-17); Calcium 8.8 mg/dL (8.4-10.2); Carbon Dioxide 22 mmol/L (22-30); Chloride 101 mmol/L (98-107); Estimated CRCL calculation 23 ml/min; Estimated Glomerular Filt Rate 43; Glucose 105 mg/dL (65-110); Potassium 4.6 mmol/L (3.4-5.0); Sodium 129 mmol/L (137-145)
--- NOTE | 2021-10-03 11:15 | WPDCNINT ---
Assessment and Plan Assessment and plan (1) Acute respiratory failure: Code(s): J96.00 - Acute respiratory failure, unspecified whether with hypoxia or hypercapnia Status: Acute (2) Chronic hyponatremia: Code(s): E87.1 - Hypo-osmolality and hyponatremia Status: Acute (3) Elevated LFTs: Code(s): R79.89 - Other specified abnormal findings of blood chemistry Status: Acute (4) Elevated troponin: Code(s): R77.8 - Other specified abnormalities of plasma proteins Status: Acute (5) Congestive heart failure: Code(s): I50.9 - Heart failure, unspecified Status: Acute (6) GIL (acute kidney injury): Code(s): N17.9 - Acute kidney failure, unspecified Status: Acute (7) Paroxysmal atrial fibrillation: Code(s): I48.0 - Paroxysmal atrial fibrillation Status: Acute (8) Altered mental status: Qualifiers: Altered mental status type: coma Coma depth: unspecified coma depth Qualified Code(s): R40.20 - Unspecified coma Code(s): R41.82 - Altered mental status, unspecified Status: Acute Assessment and Plan: 1. 5/ PSV SBT done for more than 1 hour. RSBI, ABGI and Vitals acceptable. Pt awake and following commands. Will extubate and monitor. NPO for now. May need BiPAP 2. Patient has chronic hyponatremia but on presentation her sodium was 125 which was lower than her usual level. BMP was recheck this morning and sodium had improved to 129. Continue monitoring 3. Right upper quadrant ultrasound is pending 4. Continue heparin infusion, add aspirin, cardiology consulted, echo ordered 5. Her creatinine is improving. Check CK level. Cautious IV fluid. Renal ultrasound is already ordered and pending 6. Currently in sinus Cricket. On heparin infusion. Cardiology consulted 7. Unknown etiology for altered mental status on presentation. At this time patient is now following commands despite sedation and on sedation holiday she moves all 4 extremities. Will plan on extubation. She may have had a seizure, syncope or CVA. MRI post extubation, echo is ordered, ICU telemetry monitoring, continue aspirin heparin Additional Plan DVT prophylaxis -currently on heparin infusion Stress ulcer prophylaxis -IV PPI Code Status - Full Code Total Critical Care Time - 35 minutes Due to a high probability of clinically significant, life threatening deterioration, the patient required my highest level of preparedness to intervene emergently and I personally spent this critical care time directly and personally managing the patient. This critical care time included obtaining a history; examining the patient; pulse oximetry; ordering and review of studies; arranging urgent treatment with development of a management plan; evaluation of patient's response to treatment; frequent reassessment; and discussions with other providers. It was exclusive of separately billable procedures and treating other patients and teaching time. Please see Assessment and Plan section and the rest of the note for further information on patient assessment and treatment Systems Support Specialist Consult Note Consult date: 10/03/21 HPI: Layla Srinivasan is a 81 year old female with atrial fibrillation, congestive heart failure, chronic kidney disease, hypothyroidism, diabetes, and peripheral vascular disease who presented to the emergency department yesterday via EMS from home for evaluation after she was found unresponsive. She was intubated and placed on mechanical ventilation for altered mental status. She reportedly was in her usual state of health earlier today and had not had any complaints. Not long prior to arrival the patient's son heard some noise in the other room and he thought perhaps his mother had had a flare. When he went to check on her she was lying on the couch and was unresponsive but breathing. He called 911 and on EMS arrival she was reportedly limp and unresponsive to noxious stimuli. Intub
[2021-10-03 12:53] LABS: Creatine Kinase 64 U/L (30-135)
[2021-10-03] MEDS: ASPIRIN 325 MG TABLET PO (13:04)
[2021-10-03] MEDS: PANTOPRAZOLE SODIUM IV 40 MG VIAL IV PUSH (13:04)
[2021-10-03] MEDS: SODIUM CHLORIDE 0.9% IV 1,000 ML 100 ML IV CONT (13:06)
[2021-10-03 14:45] LABS: Sodium Urine Random 34 meq/L
[2021-10-03 14:55] LABS: Creatinine Urine 87.2 mg/dL
[2021-10-03 15:00] LABS: Partial Thromboplastin Time 72.8 SECONDS (22.3-36.8)
--- NOTE | 2021-10-03 15:50 | PM.IMPN ---
Progress Note: A&P Assessment and Plan (1) Acute respiratory failure: Code(s): J96.00 - Acute respiratory failure, unspecified whether with hypoxia or hypercapnia Status: Acute Assessment and Plan: Patient required intubation in the filed but had difficulty placing ETT. Yvonne ultimately intubated in the ED for airway protention. She has regained consciousness and vent weaned to the point of extubation today. CXR reviewed showing viral vs pulm edema. Patient weaned to 2L but probably could come of O2 now. Continue to wean supplemental O2 as tolerated. (2) Altered mental status: Qualifiers: Altered mental status type: coma Coma depth: unspecified coma depth Qualified Code(s): R40.20 - Unspecified coma Code(s): R41.82 - Altered mental status, unspecified Status: Acute Assessment and Plan: Yvonne found unresponsive and she has no memory of the event. Brain MR showing right frontal lobe encephalomalacia but no acute findings. Cervical spine CT showing no acute findings. UA clear. Labs unrevealing for the etiology. She did have low Na with metabolic acidosis and GIL. Glucose okay here. Seizure? Malignant rhythm? Monitor on tele. Cardiology following. PT/OT (3) Elevated troponin: Code(s): R77.8 - Other specified abnormalities of plasma proteins Status: Acute Assessment and Plan: Patient had a STEMI in February 2021 but unable to intervene since she had an ingoing GI bleed. Trop elevated here at 0.1 but flat. 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 No complaints of chest pain. Possibly elevated Trop related to cardiac event? Continue tele. Resume some of her home meds. Patient remains on Heparin drip. (4) GIL (acute kidney injury): Code(s): N17.9 - Acute kidney failure, unspecified Status: Acute Assessment and Plan: Cr was up to 1.7 on admission. With IV fluids, Cr improved. Renal US showing no acute findings. Dehydration? Will continue to monitor. Watch oral intake. (5) Chronic hyponatremia: Code(s): E87.1 - Hypo-osmolality and hyponatremia Status: Acute Assessment and Plan: Patient has chronic hyponatremia to 131-135. Na low to 125 on admisison. Jazzmine 74 but then 34 on repeat with FENa 0.36%. Na better at 129 now. Suspect related to dehydration. Continue to monitor. (6) Elevated LFTs: Code(s): R79.89 - Other specified abnormal findings of blood chemistry Status: Acute Assessment and Plan: AST elevated on admission but it is about the same as in May. Abd US now showing development of mild to moderate biliary dilation. Hepatitis panel negative. Will repeat labs in the morning. (7) Congestive heart failure: Code(s): I50.9 - Heart failure, unspecified Status: Acute Assessment and Plan: Patient has a hx of CHF. 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 and mild RV dysfunction. BNP 5050. CXR showing either edema va PNA (favor the former). Hold lasix for now given the GIL. Follow (8) Paroxysmal atrial fibrillation: Code(s): I48.0 - Paroxysmal atrial fibrillation Status: Acute Assessment and Plan: EKG showing NSR. Patient maintaining NSR by tele. Resume some home meds (9) DVT prophylaxis: Code(s): Z29.9 - Encounter for prophylactic measures, unspecified Status: Acute Assessment and Plan: Currently on a heparin drip. Subjective Date/time seen: 10/03/21 15:50 Interval history: 81yo female with cAFib, DM, CHF and CKD here after being found unresponsive. The last thing the patient remembers is sitting in the family room. She has been extubated. She denies feeling dizzy/chest pain/SOB/palpitations prior to the event. UTD on COVID vaccine and booster. No hx of Sz. No new medications. No hx of syncope or presyncope. Exam Narrative: AF 98.4 104/51 64 14 100% 2L Gen - NARD Neck - supple. 2+
[2021-10-03] MEDS: APIXABAN 2.5 MG TABLET PO (20:24)
[2021-10-04] VITALS (17 sets, daily range): BP systolic 105–153; BP diastolic 52–119; PULSE 63–115; RESP 17–30; TEMP 35.6–37.1; O2SAT 90–100
[2021-10-04] MEDS: SODIUM CHLORIDE 0.9% IV 1,000 ML 100 ML IV CONT (01:19)
--- NOTE | 2021-10-04 07:10 | PC.NURSE ---
Patient c/o chest discomfort, Dr. Nava notified, stat EKG and labs ordered.
--- NOTE | 2021-10-04 07:30 | ECG_ITS ---
Measurements Intervals [place] Rate: 99 P: 112 [place]: 188 QRS: 57 QRSD: 142 T: 160 QT: 362 QTc: 465 Interpretive Statements SINUS OR ECTOPIC ATRIAL RHYTHM IVCD, CONSIDER ATYPICAL LBBB CANNOT RULE OUT SEPTAL INFARCT, AGE INDETERMINATE ST-T WAVE ABNORMALITY IN ANTEROLAT/HIGH LAT LEADS- CONSIDER ISCHEMIA ABNORMAL ECG Electronically Signed On 10-04-2021 8:03:55 TENT FINISHER by Anatoliy Bolton D.O.
[2021-10-04 08:08] LABS: Basophils Percent Auto 0.4 % (0.2-1.2); Eosinophils Absolute Auto 0.1 K/mm3 (0-0.3); Eosinophils Percent Auto 1.9 % (0-4.4); Hematocrit 29.6 % (37.0-47.0); Hemoglobin 9.8 g/dL (12.0-15.0); Immature Granulocyte Absolute 0.02 K/mm3 (0.00-0.031); Immature Granulocyte Percent A 0.3 % (0-0.5); Lymphocytes Percent Auto 20.4 % (18.3-44.2); Mean Corpuscular HGB Conc 33.1 g/dl (32-36); Mean Corpuscular Volume 93.7 fl (80-100); Monocytes Absolute Auto 0.6 K/mm3 (0.1-0.6); Monocytes Percent Auto 7.8 % (2.6-8.5); Neutrophils Absolute Auto 5.1 K/mm3 (1.3-6.7); Neutrophils Percent Auto 69.2 % (45.5-73.1); Platelet Count Result 178 k/mm3 (150-375); Red Blood Count 3.16 M/mm3 (4.2-5.4); White Blood Count 7.3 K/mm3 (4.5-10.0)
[2021-10-04] MEDS: LEVOTHYROXINE SODIUM 25 MCG TABLET PO (08:27)
[2021-10-04 08:30] LABS: Alanine Aminotransferase 92 U/L (4-35); Albumin Level 3.4 g/dL (3.5-5.1); Alkaline Phosphatase 80 U/L (38-126); Anion Gap 7 mmol/L (8-16); Aspartate Amino Transferase 60 U/L (14-36); Bilirubin,Total 0.6 mg/dL (0.2-1.3); Blood Urea Nitrogen 13 mg/dL (7-17); Calcium 8.5 mg/dL (8.4-10.2); Carbon Dioxide 21 mmol/L (22-30); Chloride 101 mmol/L (98-107); Estimated CRCL calculation 27 ml/min; Estimated Glomerular Filt Rate 53; Glucose 119 mg/dL (65-110); Magnesium 1.9 mg/dL (1.6-2.3); Potassium 3.9 mmol/L (3.4-5.0); Sodium 129 mmol/L (137-145)
[2021-10-04 08:41] LABS: Troponin I 0.279 ng/mL (0.000-0.034)
--- NOTE | 2021-10-04 09:19 | PCOTNOTE ---
Attempted OT evaluation, per RN patient requested to sleep at this time. Will follow and attempt at later time.
--- NOTE | 2021-10-04 09:42 | PM.PNCARD ---
Progress Note: A&P Additional Plan 81-year-old white female with known coronary disease remote history of PCI to the circumflex 10 years ago. She I believe also carries the diagnosis of P AFib but currently is in sinus rhythm on amiodarone treatment. She has a history of LV systolic dysfunction noted as well in the past according to the chart. She presented to the hospital with abrupt loss of consciousness and falling collapse, suspect either syncopal episode or seizure at home. She was in sinus rhythm the whole time when EMS arrived in the emergency room and in the hospital. There have not been any arrhythmias seen that would result in syncope/collapse. Troponin is modestly elevated. ECG shows incomplete left bundle branch block which is not new. There were notes in the chart indicating she had a new left bundle branch block. Conservative treatment was recommended in the past for this lady's heart disease and acute appears to continue to be appropriate. She is being maintained on a regimen including amiodarone, apixaban, metoprolol as well as Entresto. For Entresto has not been ordered as of now I will resume that this morning. Because of the concern regarding ischemic ST segment changes on this morning's ECG am going to add a maintenance dose of clopidogrel as well. We will avoid aspirin as to avoid triple therapy. Previous notes of the chart spoke about significant anemia/GI bleeding episode. The patient does not recall any of this at the time of this interview this morning. Plan to move her out of ICU to the floor today. Will follow with you while she is in the hospital but outpatient follow-up is now established elsewhere as I mentioned above. Ace Darnell MD [facility] Subjective Date/time seen: Date of service: 10/04/21 09:42 Interval history: Follow-up visit in this 81-year-old lady with: Collapse and apparent syncopal episode at home etiology unclear. Patient had very poor mental status and was intubated upon arrival to the hospital. Admitted to the ICU. She has subsequently been rapidly extubated is alert and responsive and does not have any significant complaints at this time. Patient did have some mild chest discomfort this morning which has now resolved. Patient has a history of coronary artery disease and LV dysfunction as well as a history of paroxysmal AF. She previously had been a patient of our practice and now follows with a physician at an outside hospital. She is otherwise comfortable and has no complaints today. Exam Narrative: PHYSICAL EXAMINATION: GENERAL: Alert, intubated MENTAL STATUS: affect appropriate to mood EYES: Extraocular movements intact, no pallor EARS: External ears appear normal, hearing grossly normal NOSE: Normal and patent, no discharge MOUTH: Orotracheal tube is in place NECK: Supple, no JVD CHEST: Ventilatory sounds HEART: Normal rate, regular rhythm, normal S1 and S2, soft systolic murmur ABDOMEN: Soft, nontender NEUROLOGICAL: Alert, responsive to verbal commands MUSCULOSKELETAL: No major deformity, no amputation EXTREMITIES: Trace pedal edema, no clubbing, no cyanosis SKIN: no rash on the exposed area, no cyanosis PSYCHIATRIC: Normal mood, appropriate affect Objective Data Vital Signs Vital Signs: Vital Signs - 24 hr 10/03/21 10:00 10/03/21 11:00 10/03/21 12:00 Temperature 36.9 C Pulse Rate 83 62 Respiratory Rate 29 H 13 Blood Pressure 109/51 L 119/52 L Pulse Oximetry 99 97 98 10/03/21 14:00 10/03/21 16:00 10/03/21 18:00 Temperature 36.8 C Pulse Rate 64 67 75 Respiratory Rate 14 16 18 Blood Pressure 104/51 L 115/48 L 133/58 L Pulse Oximetry 100 99 95 10/03/21 20:00 10/03/21 22:00 10/04/21 00:00 Temperature 36.8 C 36.6 C Pulse Rate 74 72 90 Respiratory Rate 18 18 18 Blood Pressure 118/46 L 116/49 L 119/57 L Pulse Oximetry 99 99 99 10/04/21 02:00 10/04/21 04:00 10/04/21 06:00 Temperature 36.6 C Pulse Rate 75 67 92 Res
--- NOTE | 2021-10-04 10:43 | WPDINTPN ---
Progress Note: A&P Assessment and Plan (1) CHF exacerbation: Qualifiers: Heart failure type: systolic Qualified Code(s): I50.23 - Acute on chronic systolic (congestive) heart failure Code(s): I50.9 - Heart failure, unspecified Status: Acute Assessment and Plan: Check chest x-ray DC IV fluids IV morphine IV Lasix ECHO 1. Complete two-dimensional, color flow and Doppler transthoracic echocardiogram is performed. 2. Mild LVH, borderline LV enlargement, moderate LV systolic dysfunction with segmental wall motion abnormality; ejection fraction about 35%; basal inferior segment aneurysmal. Normal LV size, mild RV dysfunction. Moderate left atrial enlargement. Mitral valve leaflets mildly thickened with mitral annular calcification, mild mitral stenosis, mean gradient 3 mmHg. Mild aortic valve calcification, mild aortic stenosis, valve area 1.6 cm2, maximum velocity 2.1 m/sec, mean gradient 8 mmHg. Mild TR, moderate pulmonary hypertension, RVSP 48 mmHg. Normal sinus rhythm. (2) Acute respiratory failure: Code(s): J96.00 - Acute respiratory failure, unspecified whether with hypoxia or hypercapnia Status: Acute Assessment and Plan: Patient was intubated on presentation. 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 with 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 management only hence she is being medically managed with medications Plavix has been added to her coronary artery disease regimen Echo is ordered (5) Paroxysmal atrial fibrillation: Code(s): I48.0 - Paroxysmal atrial fibrillation Status: Acute Assessment and Plan: Currently in sinus rhythm On beta-elizabeth and Eliquis (6) CAD (coronary artery disease): Code(s): I25.10 - Atherosclerotic heart disease of [place] coronary artery without angina pectoris Status: Acute Assessment and Plan: See above (7) Chronic hyponatremia: Code(s): E87.1 - Hypo-osmolality and hyponatremia Status: Acute Assessment and Plan: Sodium is slightly lower than her baseline but continues to be stable Monitor (8) Chronic anemia: Code(s): D64.9 - Anemia, unspecified Status: Acute Assessment and Plan: Hemoglobin is stable monitor (9) GIL (acute kidney injury): Code(s): N17.9 - Acute kidney failure, unspecified Status: Acute Assessment and Plan: Creatinine has improved with IV fluids IV fluids now has been discontinued due to CHF exacerbation Renal ultrasound was reviewed (10) Altered mental status: Qualifiers: Altered mental status type: coma Coma depth: unspecified coma depth Qualified Code(s): R40.20 - Unspecified coma Code(s): R41.82 - Altered mental status, unspecified Status: Acute Assessment and Plan: Unknown etiology for altered mental status on presentation. Patient is now extubated and alert oriented x3 and she does not remember what happened She may have had a seizure, syncope or CVA. MRI 10/03 Chronic encephalomalacia in the right frontal lobe. 2. Mild nonspecific cerebral white matter disease, which likely represents chronic small vessel ischemic diseas Carotid Doppler IMPRESSION: 1. Less than 50% stenosis in the right internal carotid artery by sonographic criteria. 2. Less than 50% stenosis in the left internal carotid artery by sonographic c
[2021-10-04] MEDS: APIXABAN 2.5 MG TABLET PO ×2 (10:44→17:36)
[2021-10-04] MEDS: METOPROLOL SUCCINATE EXT REL 25 MG TABCR PO (10:44)
[2021-10-04] MEDS: GABAPENTIN 300 MG CAPSULE PO (10:44)
[2021-10-04] MEDS: PANTOPRAZOLE SODIUM IV 40 MG VIAL IV PUSH (10:45)
--- NOTE | 2021-10-04 10:56 | PC.NURSE ---
Patient lung sounds change, c/o SOB, patient diaphoretic. Dr Nava to bedside, lasix IVP given.
[2021-10-04] MEDS: FUROSEMIDE INJ 40 MG/4 ML VIAL IV PUSH ×2 (11:00→16:40)
[2021-10-04] MEDS: MORPHINE SULFATE (*CRX) 2 MG/ML INJ IV PUSH (11:11)
--- NOTE | 2021-10-04 11:19 | PC.NURSE ---
[facility] flyer was given to patient in cardiac folder.
[2021-10-04] MEDS: AMIODARONE HCL 200 MG TABLET PO (12:17)
--- NOTE | 2021-10-04 17:11 | PCRCNOTE ---
Patient removed from CPAP at 1700 and placed on 4.5 lpm nasal cannula. Observed patient and no respiratory distress noted. No c/o dyspnea. Informed patient to let RN know if develops dyspnea.
--- NOTE | 2021-10-04 17:48 | PM.IMPN ---
Progress Note: A&P Assessment and Plan (1) Acute respiratory failure: Code(s): J96.00 - Acute respiratory failure, unspecified whether with hypoxia or hypercapnia Status: Acute Assessment and Plan: Patient required intubation in the filed but had difficulty placing ETT. Yvonne ultimately intubated in the ED for airway protention. She has regained consciousness and vent weaned to the point of extubation 10/03. CXR reviewed today showing worsened diffuse lung disease. Patient on 4L now. Continue to wean supplemental O2 as tolerated. (2) Altered mental status: Qualifiers: Altered mental status type: coma Coma depth: unspecified coma depth Qualified Code(s): R40.20 - Unspecified coma Code(s): R41.82 - Altered mental status, unspecified Status: Acute Assessment and Plan: Yvonne found unresponsive and she has no memory of the event. Brain MR showing right frontal lobe encephalomalacia but no acute findings. Cervical spine CT showing no acute findings. UA clear. Labs unrevealing for the etiology. She did have low Na with metabolic acidosis and GIL. Glucose okay here. Seizure? Malignant rhythm? Monitor on tele. Cardiology following. Continue PT/OT (3) Congestive heart failure: Code(s): I50.9 - Heart failure, unspecified Status: Acute Assessment and Plan: Patient has a hx of CHF. 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 BNP 5050. CXR showing either edema va PNA (favor the former). Patient with Acute on Chronic systolic and diastolic CHF this morning. Treated with IV Lasix with improvement. Continue Toprol XL, Entresto. Add back oral Lasix as well. (4) Elevated troponin: Code(s): R77.8 - Other specified abnormalities of plasma proteins Status: Acute Assessment and Plan: Patient had a STEMI in February 2021 but unable to intervene since she had an ongoing GI bleed. Trop elevated here at 0.1 and was flat but higher to 0.28 but felt related to the acute CHF exacerbation/flash pulm edema. EKG showing Left BBB which is not new (IVCD noted prior). No complaints of chest pain. Continue tele. Home meds resumed. Cardiology following and appreciate their input. Plavix added. (5) GIL (acute kidney injury): Code(s): N17.9 - Acute kidney failure, unspecified Status: Acute Assessment and Plan: Cr was up to 1.7 on admission. Renal US showing no acute findings. Dehydration? With IV fluids, Cr improved. Cr now normal. Fluid overload requiring Lasix. Will continue to monitor. (6) Chronic hyponatremia: Code(s): E87.1 - Hypo-osmolality and hyponatremia Status: Acute Assessment and Plan: Patient has chronic hyponatremia to 131-135. Na low to 125 on admisison. Jazzmine 74 but then 34 on repeat with FENa 0.36%. Na better at 129 now and stable. Suspect related to dehydration. Continue to monitor. (7) Elevated LFTs: Code(s): R79.89 - Other specified abnormal findings of blood chemistry Status: Acute Assessment and Plan: AST and ALT elevated on admission but have been elevated before. Abd US now showing development of mild to moderate biliary dilation. Hepatitis panel negative. Repeat labs showing values trending down. Suspect mild hepatic congestion. (8) Paroxysmal atrial fibrillation: Code(s): I48.0 - Paroxysmal atrial fibrillation Status: Acute Assessment and Plan: EKG showing NSR. Patient maintaining NSR by tele. Continue Amiodarone, Toprol XL and Eliquis. (9) DVT prophylaxis: Code(s): Z29.9 - Encounter for prophylactic measures, unspecified Status: Acute Assessment and Plan: Eliquis Subjective Date/time seen: 10/04/21 17:48 Interval history: 81yo female with cAFib, DM, CHF and CKD here after being found unresponsive. Patient was more SOB this morning and felt to be fluid overloaded. She ws give
[2021-10-04] MEDS: SACUBITRIL/VALSARTAN 24-26 MG TABLET 1 TAB PO (22:15)
[2021-10-05] VITALS (14 sets, daily range): BP systolic 104–121; BP diastolic 51–64; PULSE 70–91; RESP 16–34; TEMP 36.6–38.9; O2SAT 92–98
[2021-10-05] MEDS: ACETAMINOPHEN 325 MG TABLET 650 MG PO ×2 (01:23→20:28)
[2021-10-05 04:47] LABS: Hematocrit 27.8 % (37.0-47.0); Hemoglobin 9.1 g/dL (12.0-15.0); Mean Corpuscular HGB Conc 32.7 g/dl (32-36); Mean Corpuscular Hemoglobin 30.5 pg (26-34); Mean Corpuscular Volume 93.3 fl (80-100); Mean Platelet Volume 10.4 fl (7.4-10.4); Platelet Count Result 171 k/mm3 (150-375); Red Blood Count 2.98 M/mm3 (4.2-5.4); Red Cell Distribution Width 14.8 % (11.5-14.5)
[2021-10-05 05:02] LABS: Alanine Aminotransferase 127 U/L (4-35); Albumin Level 3.2 g/dL (3.5-5.1); Alkaline Phosphatase 87 U/L (38-126); Anion Gap 2 mmol/L (8-16); Aspartate Amino Transferase 127 U/L (14-36); Bilirubin,Total 0.4 mg/dL (0.2-1.3); Blood Urea Nitrogen 17 mg/dL (7-17); Calcium 8.6 mg/dL (8.4-10.2); Carbon Dioxide 25 mmol/L (22-30); Chloride 99 mmol/L (98-107); Estimated CRCL calculation 23 ml/min; Estimated Glomerular Filt Rate 43; Glucose 105 mg/dL (65-110); Magnesium 1.8 mg/dL (1.6-2.3); Potassium 4.1 mmol/L (3.4-5.0); Sodium 126 mmol/L (137-145)
[2021-10-05] MEDS: LEVOTHYROXINE SODIUM 25 MCG TABLET PO (06:26)
[2021-10-05] MEDS: CLOPIDOGREL BISULFATE 75 MG TABLET PO (09:10)
[2021-10-05] MEDS: GABAPENTIN 300 MG CAPSULE PO (09:10)
[2021-10-05] MEDS: APIXABAN 2.5 MG TABLET PO ×2 (09:10→17:53)
[2021-10-05] MEDS: METOPROLOL SUCCINATE EXT REL 25 MG TABCR PO (09:10)
[2021-10-05] MEDS: FUROSEMIDE 40 MG TABLET PO (09:10)
[2021-10-05] MEDS: AMIODARONE HCL 200 MG TABLET PO (09:10)
[2021-10-05] MEDS: PANTOPRAZOLE SODIUM IV 40 MG VIAL IV PUSH (09:11)
[2021-10-05] MEDS: SACUBITRIL/VALSARTAN 24-26 MG TABLET 1 TAB PO ×2 (09:11→20:28)
--- NOTE | 2021-10-05 11:18 | PC.NURSE ---
PATIENT TRANSFERRED TO ROOM 241 PER WHEELCHAIR. REPORT GIVEN TO CHEPE ANGULO. ALL QUESTIONS ANSWERED.
--- NOTE | 2021-10-05 11:45 | PC.NURSE ---
This patient, Layla Srinivasan, was received from ICU-6 on 10/05/21 at 1120. Received report from CHEPE Vincent. Patient/family oriented to unit policies and routines.
--- NOTE | 2021-10-05 12:10 | WPDINTPN ---
Progress Note: A&P Assessment and Plan (1) CHF exacerbation: Qualifiers: Heart failure type: systolic Qualified Code(s): I50.23 - Acute on chronic systolic (congestive) heart failure Code(s): I50.9 - Heart failure, unspecified Status: Acute Assessment and Plan: Improved after few hours of CPAP therapy and Lasix x2 Currently saturating well on 1 L nasal cannula with no respiratory distress Continue Lasix as needed ECHO 1. Complete two-dimensional, color flow and Doppler transthoracic echocardiogram is performed. 2. Mild LVH, borderline LV enlargement, moderate LV systolic dysfunction with segmental wall motion abnormality; ejection fraction about 35%; basal inferior segment aneurysmal. Normal LV size, mild RV dysfunction. Moderate left atrial enlargement. Mitral valve leaflets mildly thickened with mitral annular calcification, mild mitral stenosis, mean gradient 3 mmHg. Mild aortic valve calcification, mild aortic stenosis, valve area 1.6 cm2, maximum velocity 2.1 m/sec, mean gradient 8 mmHg. Mild TR, moderate pulmonary hypertension, RVSP 48 mmHg. Normal sinus rhythm. (2) Acute respiratory failure: Code(s): J96.00 - Acute respiratory failure, unspecified whether with hypoxia or hypercapnia Status: Acute Assessment and Plan: Patient was intubated on presentation. 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 continue with 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 management only hence she is being medically managed with medications Plavix has been added to her coronary artery disease regimen Echo review (5) Paroxysmal atrial fibrillation: Code(s): I48.0 - Paroxysmal atrial fibrillation Status: Acute Assessment and Plan: Currently in sinus rhythm On beta-elizabeth and Eliquis (6) CAD (coronary artery disease): Code(s): I25.10 - Atherosclerotic heart disease of [place] coronary artery without angina pectoris Status: Acute Assessment and Plan: See above (7) Chronic hyponatremia: Code(s): E87.1 - Hypo-osmolality and hyponatremia Status: Acute Assessment and Plan: Sodium is 126 today. Patient asymptomatic. TSH normal Likely secondary to CHF Monitor (8) Chronic anemia: Code(s): D64.9 - Anemia, unspecified Status: Acute Assessment and Plan: Hemoglobin is stable monitor (9) GIL (acute kidney injury): Code(s): N17.9 - Acute kidney failure, unspecified Status: Acute Assessment and Plan: Creatinine has improved with IV fluids Patient was given Lasix due to CHF exacerbation Ultrasound review (10) Altered mental status: Qualifiers: Altered mental status type: coma Coma depth: unspecified coma depth Qualified Code(s): R40.20 - Unspecified coma Code(s): R41.82 - Altered mental status, unspecified Status: Acute Assessment and Plan: Unknown etiology for altered mental status on presentation. Patient is now extubated and alert oriented x3 and she does not remember what happened She may have had a seizure, syncope or CVA. She is now a 0 x 3 MRI 10/03 Chronic encephalomalacia in the right frontal lobe. 2. Mild nonspecific cerebral white matter disease, which likely represents chronic small vessel ischemic diseas Carotid Doppler IMPRESSION: 1. Less than 50% stenosis in the right internal carotid artery by sonographic criteria. 2. Less than 50% stenosis in the l
--- NOTE | 2021-10-05 14:38 | PM.PNCARD ---
Progress Note: A&P Assessment and Plan (1) Unresponsive episode: Code(s): R41.89 - Other symptoms and signs involving cognitive functions and awareness Status: Acute Assessment and Plan: 81-year-old female with CAD, history of PCI/stenting (stenting of proximal-mid left circumflex artery using a 2.5 x 18 mm Xience drug-eluting stent on 02/02/[address] Darnell), CHF with reduced ejection fraction, paroxysmal atrial fibrillation on chronic anticoagulation with apixaban, PAD being managed 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ly, diabetes mellitus, CKD, hypothyroidism on thyroxine replacement; history of CVA based on CT head. Patient admitted to the hospital after she was found to be unresponsive. Exact etiology of unresponsive episode uncertain at this time. Heart rhythm at the time of unresponsive event not available. On telemetry, patient has been in sinus rhythm. EKG shows sinus rhythm, left bundle branch block. Previous EKG had shown sinus rhythm with intraventricular conduction delay. Troponins are mildly elevated and essentially flat. Echocardiogram on preliminary assessment shows moderate LV systolic dysfunction, not significantly changed compared to the previous echo. - Doing well post extubation. Continue supportive management in this regard. - Amiodarone, apixaban has been resumed. Monitor for bleeding, follow H&H. Monitor renal function electrolytes. - Repeat 12 lead EKG in a.m.. - She feels well and is not reporting any anginal symptoms. Reiterated plan for 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 management which the patient and her son also confirmed. - Event monitor at discharge to check for any significant arrhythmias. Can defer to her primary manual tester Dr. Caputo. (2) Congestive heart failure: Code(s): I50.9 - Heart failure, unspecified Status: Acute Assessment and Plan: continue Toprol XL, furosemide. Resume Entresto 1/2 tablet q.12 hours. Check renal function in a.m.. (3) Elevated troponin: Code(s): R77.8 - Other specified abnormalities of plasma proteins Status: Resolved Assessment and Plan: Troponins are mildly elevated and essentially flat, and likely not ACS related. (4) Paroxysmal atrial fibrillation: Code(s): I48.0 - Paroxysmal atrial fibrillation Status: Acute Assessment and Plan: Currently in sinus rhythm. Anticoagulation with apixaban. Subjective Date/time seen: Date of service: 10/05/21 14:38 Interval history: Follow-up visit in this 81-year-old lady with: Collapse and apparent syncopal episode at home etiology unclear History of cardiomyopathy, paroxysmal atrial fibrillation presenting with acute respiratory failure requiring intubation now extubated. Patient feeling much better. Denies chest pain, shortness of breath or palpitations. Ambulating without significant difficulty. No new issues. Son at bedside. Discussed plans of care. All questions answered to their satisfaction. Review of Systems Review of Systems: All systems reviewed & are unremarkable except as noted in HPI and below Constitutional: Constitutional: Reports as per HPI and Reports no additional constitutional complaints Eyes: Eyes: Reports as per HPI and Reports no additional eye complaints ENT: Reports system reviewed and no additional complaints, except as documented and Reports as per HPI Cardiovascular: Cardiovascular: Reports as per HPI, Reports no additional cardiovascular complaints, Denies chest pain, Denies diaphoresis, Denies lightheadedness and Denies palpitations Respiratory: Respiratory: Reports as per HPI, Reports no additional respiratory complaints, Denies dyspnea and Denies dyspnea on exertion Gastrointestinal: Gastrointestinal: Reports as per HPI and Reports no additional gastrointestinal complaints Genitourinary: Genitourinary: Reports no additional female genitourinary complaints and Reports as per HPI Musculoskeletal: Musculoskeletal: Reports no additional musculoske
--- NOTE | 2021-10-05 16:06 | PM.IMPN ---
Progress Note: A&P Assessment and Plan (1) Acute respiratory failure: Code(s): J96.00 - Acute respiratory failure, unspecified whether with hypoxia or hypercapnia Status: Acute Assessment and Plan: Patient required intubation in the field but had difficulty placing ETT. Patient ultimately intubated in the ED for airway protection. She has regained consciousness and vent weaned to the point of extubation 10/03. CXR yesterday showing worsening diffuse lung disease related to pulmonary edema. She was on 4L but weaned to RA now. (2) Altered mental status: Qualifiers: Altered mental status type: coma Coma depth: unspecified coma depth Qualified Code(s): R40.20 - Unspecified coma Code(s): R41.82 - Altered mental status, unspecified Status: Acute Assessment and Plan: Elenan found unresponsive and she has no memory of the event. Brain MR showing right frontal lobe encephalomalacia but no acute findings. Cervical spine CT showing no acute findings. UA clear. Labs unrevealing for the etiology. She did have low Na with metabolic acidosis and GIL. Glucose okay here. Seizure? Malignant rhythm? No issues on tele. Cardiology following. Continue PT/OT. (3) Congestive heart failure: Code(s): I50.9 - Heart failure, unspecified Status: Acute Assessment and Plan: Patient has a hx of CHF. 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 BNP 5050. CXR showing either edema va PNA (favor the former). Patient with Acute on Chronic systolic and diastolic CHF. Treated with IV Lasix with improvement and now back on oral Lasix. Continue Toprol XL, Entresto. Plan to repeat EKG in the morning and monitor renal function. (4) Elevated troponin: Code(s): R77.8 - Other specified abnormalities of plasma proteins Status: Acute Assessment and Plan: Patient had a STEMI in February 2021 but unable to intervene since she had an ongoing GI bleed. Trop elevated here at 0.1 and was flat but higher to 0.28 but felt related to the acute CHF exacerbation/flash pulm edema. EKG showing Left BBB which is not new (IVCD noted prior). No complaints of chest pain. Continue tele. Home meds resumed. Plavix added. Cardiology following and appreciate their input. Discussed. (5) GIL (acute kidney injury): Code(s): N17.9 - Acute kidney failure, unspecified Status: Acute Assessment and Plan: Cr was up to 1.7 on admission. Renal US showing no acute findings. Dehydration? With IV fluids, Cr improved. Cr now normal. Fluid overload requiring Lasix. Will continue to monitor. (6) Chronic hyponatremia: Code(s): E87.1 - Hypo-osmolality and hyponatremia Status: Acute Assessment and Plan: Patient has chronic hyponatremia to 131-135. Na low to 125 on admisison. Jazzmine 74 but then 34 on repeat with FENa 0.36%. Na was up to 129 but now down to 126. Possibly relatd to the Lasix. Will back off on the lasix since the Cr climbing as well. Repeat Na. (7) Elevated LFTs: Code(s): R79.89 - Other specified abnormal findings of blood chemistry Status: Acute Assessment and Plan: AST and ALT elevated on admission but have been elevated before. Abd US now showing development of mild to moderate biliary dilation. Hepatitis panel negative. Repeat labs showing values are up and down. Suspect mild hepatic congestion. (8) Paroxysmal atrial fibrillation: Code(s): I48.0 - Paroxysmal atrial fibrillation Status: Acute Assessment and Plan: EKG showing NSR. Patient maintaining NSR by tele. Continue Amiodarone, Toprol XL and Eliquis. (9) DVT prophylaxis: Code(s): Z29.9 - Encounter for prophylactic measures, unspecified Status: Acute Assessment and Plan: Eliquis Subjective Date/time seen: 10/05/21 16:06 Interval history: 81yo female with cAFib, DM, CHF and CKD here after
[2021-10-05 17:24] LABS: Sodium 131 mmol/L (137-145)
[2021-10-06] VITALS (9 sets, daily range): BP systolic 120–123; BP diastolic 66–69; PULSE 69–96; RESP 16; TEMP 36.2–37; O2SAT 95–98
[2021-10-06] MEDS: ONDANSETRON INJ 4 MG/2 ML VIAL IV PUSH (05:21)
[2021-10-06] MEDS: LEVOTHYROXINE SODIUM 25 MCG TABLET PO (05:21)
[2021-10-06 05:25] LABS: Hematocrit 29.3 % (37.0-47.0); Hemoglobin 9.6 g/dL (12.0-15.0); Mean Corpuscular HGB Conc 32.8 g/dl (32-36); Mean Corpuscular Hemoglobin 30.7 pg (26-34); Mean Corpuscular Volume 93.6 fl (80-100); Mean Platelet Volume 11.1 fl (7.4-10.4); Platelet Count Result 184 k/mm3 (150-375); Red Blood Count 3.13 M/mm3 (4.2-5.4); Red Cell Distribution Width 14.9 % (11.5-14.5); White Blood Count 6.8 K/mm3 (4.5-10.0)
[2021-10-06 05:42] LABS: Alanine Aminotransferase 91 U/L (4-35); Albumin Level 3.4 g/dL (3.5-5.1); Alkaline Phosphatase 82 U/L (38-126); Anion Gap 6 mmol/L (8-16); Aspartate Amino Transferase 74 U/L (14-36); Bilirubin,Total 0.6 mg/dL (0.2-1.3); Blood Urea Nitrogen 17 mg/dL (7-17); Calcium 8.6 mg/dL (8.4-10.2); Carbon Dioxide 25 mmol/L (22-30); Chloride 96 mmol/L (98-107); Estimated CRCL calculation 27 ml/min; Estimated Glomerular Filt Rate 53; Glucose 113 mg/dL (65-110); Magnesium 1.8 mg/dL (1.6-2.3); Potassium 3.6 mmol/L (3.4-5.0); Sodium 127 mmol/L (137-145)
--- NOTE | 2021-10-06 07:00 | ECG_ITS ---
Measurements Intervals [place] Rate: 68 P: 53 [place]: 164 QRS: 3 QRSD: 131 T: -5 QT: 412 QTc: 438 Interpretive Statements SINUS RHYTHM INTRAVENTRICULAR CONDUCTION DELAY ANTEROSEPTAL INFARCT, AGE INDETERMINATE ST-T WAVE ABNORMALITY IN HIGH LATERAL LEADS- CONSIDER ISCHEMIA BASELINE ARTIFACT- I, II, III, AVR, AVL, AVF, V4-V6 ABNORMAL ECG Electronically Signed On 10-06-2021 12:12:50 [employer]INE [employer]PER[employer] by Anatoliy Bolton D.O.
[2021-10-06 07:58] LABS: Glucose Point of Care 98 mg/dl (65-105)
[2021-10-06] MEDS: SACUBITRIL/VALSARTAN 24-26 MG TABLET 1 TAB PO ×2 (08:41→20:48)
[2021-10-06] MEDS: GABAPENTIN 300 MG CAPSULE PO (08:42)
[2021-10-06] MEDS: CLOPIDOGREL BISULFATE 75 MG TABLET PO (08:42)
[2021-10-06] MEDS: METOPROLOL SUCCINATE EXT REL 25 MG TABCR PO (08:42)
[2021-10-06] MEDS: FUROSEMIDE 20 MG TABLET PO (08:42)
[2021-10-06] MEDS: APIXABAN 2.5 MG TABLET PO ×2 (08:42→17:47)
[2021-10-06] MEDS: PANTOPRAZOLE SODIUM IV 40 MG VIAL IV PUSH (08:42)
[2021-10-06] MEDS: AMIODARONE HCL 200 MG TABLET PO (08:42)
--- NOTE | 2021-10-06 10:21 | PM.IMPN ---
Progress Note: A&P Assessment and Plan (1) Fever: Code(s): R50.9 - Fever, unspecified Status: Acute Assessment and Plan: Patient with fever to 102.7. Etiology unclear. No significant symptoms except for cough. WBC normal. Will check chest x-ray. Check her for flu. Will check urinalysis. Hold on antibiotics. Consider COVID testing if x-ray is not clear. Check blood cultures if she has fever again. (2) Acute respiratory failure: Code(s): J96.00 - Acute respiratory failure, unspecified whether with hypoxia or hypercapnia Status: Acute Assessment and Plan: Patient required intubation in the field but had difficulty placing ETT. Patient ultimately intubated in the ED for airway protection. She regained consciousness and vent weaned to the point of extubation 10/03. CXR 10/04 showing worsening diffuse lung disease related to pulmonary edema that was treated with Lasix IV. She was on 4L but weaned to RA now. Resolved. (3) Altered mental status: Qualifiers: Altered mental status type: coma Coma depth: unspecified coma depth Qualified Code(s): R40.20 - Unspecified coma Code(s): R41.82 - Altered mental status, unspecified Status: Acute Assessment and Plan: Patient found unresponsive and she has no memory of the event. Brain MR showing right frontal lobe encephalomalacia but no acute findings. Cervical spine CT showing no acute findings. UA clear. Labs unrevealing for the etiology. She did have low Na with metabolic acidosis and GIL. Glucose okay here. Seizure? Malignant rhythm? No issues on tele. Cardiology following. Continue PT/OT. (4) Congestive heart failure: Code(s): I50.9 - Heart failure, unspecified Status: Acute Assessment and Plan: Patient has a hx of CHF. 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 BNP 5050. CXR showing either edema va PNA (favor the former). Patient with Acute on Chronic systolic and diastolic CHF. Treated with IV Lasix with improvement and now back on oral Lasix. Continue Toprol XL, Entresto. ST-T wave changes improved on EKG today. Monitor closely on lower dose Lasix. (5) Elevated troponin: Code(s): R77.8 - Other specified abnormalities of plasma proteins Status: Acute Assessment and Plan: Patient had a STEMI in February 2021 but unable to intervene since she had an ongoing GI bleed. Trop elevated here at 0.1 and was flat but higher to 0.28 but felt related to the acute CHF exacerbation/flash pulm edema. EKG showing Left BBB which is not new (IVCD noted prior). No complaints of chest pain. Continue tele. Home meds resumed. Plavix added. Cardiology following and appreciate their input. (6) GIL (acute kidney injury): Code(s): N17.9 - Acute kidney failure, unspecified Status: Acute Assessment and Plan: Cr was up to 1.7 on admission. Renal US showing no acute findings. Dehydration? With IV fluids, Cr improved to 1.0 but became fluid overloaded requiring Lasix IV. IV fluids off and now back on oral Lasix. Cr stable 1-1.2 range. Will continue to monitor. (7) Chronic hyponatremia: Code(s): E87.1 - Hypo-osmolality and hyponatremia Status: Acute Assessment and Plan: Patient has chronic hyponatremia to 131-135. Na low to 125 on admission. Jazzmine 74 but then 34 on repeat with FENa 0.36%. Na also is up and down ranging from 125-131 here. Possibly related to the Lasix. Lasix dose decreased today. Follow. (8) Elevated LFTs: Code(s): R79.89 - Other specified abnormal findings of blood chemistry Status: Acute Assessment and Plan: AST and ALT elevated on admission but have been elevated before. Abd US now showing development of mild to moderate biliary dilation. Hepatitis panel negative. No abdominal pain. Labs better today but repeat labs showing values are up and down. Suspect mild hepatic con
[2021-10-06 11:12] LABS: CRP 8.7 mg/dL (<1.0); Lactate Dehydrogenase 697 U/L (313-618)
--- NOTE | 2021-10-06 17:42 | PM.PNCARD ---
Progress Note: A&P Assessment and Plan (1) Unresponsive episode: Code(s): R41.89 - Other symptoms and signs involving cognitive functions and awareness Status: Acute Assessment and Plan: 81-year-old female with CAD, history of PCI/stenting (stenting of proximal-mid left circumflex artery using a 2.5 x 18 mm Xience drug-eluting stent on 02/02/[address] Darnell), CHF with reduced ejection fraction, paroxysmal atrial fibrillation on chronic anticoagulation with apixaban, PAD being managed 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ly, diabetes mellitus, CKD, hypothyroidism on thyroxine replacement; history of CVA based on CT head. Patient admitted to the hospital after she was found to be unresponsive. Exact etiology of unresponsive episode uncertain at this time. Heart rhythm at the time of unresponsive event not available. On telemetry, patient has been in sinus rhythm. EKG shows sinus rhythm, left bundle branch block. Previous EKG had shown sinus rhythm with intraventricular conduction delay. Troponins are mildly elevated and essentially flat. Echocardiogram on preliminary assessment shows moderate LV systolic dysfunction, not significantly changed compared to the previous echo. - Doing well post extubation. Continue supportive management in this regard. - Amiodarone, apixaban has been resumed. Monitor for bleeding, follow H&H. Monitor renal function electrolytes. - Repeat 12 lead EKG with significant improvement in ST abnormalities previously documented now in line with prior baseline abnormalities. No anginal symptoms. - She feels well and is not reporting any anginal symptoms. Reiterated plan for 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 management which the patient and her son also confirmed. - Event monitor at discharge to check for any significant arrhythmias. Can defer to her primary customer energy specialist Dr. Caputo. Will see patient as needed. Please do not hesitate to contact us with any additional questions or concerns. Will defer further workup and disposition to hospitalist service. (2) Congestive heart failure: Code(s): I50.9 - Heart failure, unspecified Status: Acute Assessment and Plan: continue Toprol XL 25 mg daily, furosemide 20 mg daily. Tolerating Entresto 24/26 mg q.12 hours. Renal function stable. (3) Elevated troponin: Code(s): R77.8 - Other specified abnormalities of plasma proteins Status: Resolved Assessment and Plan: Troponins are mildly elevated and essentially flat, and likely not ACS related. (4) Paroxysmal atrial fibrillation: Code(s): I48.0 - Paroxysmal atrial fibrillation Status: Acute Assessment and Plan: Currently in sinus rhythm. Anticoagulation with apixaban. Monitor for bleeding. (5) Fever: Code(s): R50.9 - Fever, unspecified Status: Acute Assessment and Plan: Workup underway per hospitalist service. Significant fever. Chest x-ray largely unchanged. (6) Elevated LFTs: Code(s): R79.89 - Other specified abnormal findings of blood chemistry Status: Acute Assessment and Plan: LFTs variable but remained elevated. Abdominal ultrasound with biliary dilatation noted. Possible hepatic congestion although patient clinically volume overloaded. Possible association with amiodarone. Although she would benefit from a statin she is not currently on this therapy as a potential contributor to abnormal LFTs. Subjective Date/time seen: Date of service: 10/06/21 17:42 Interval history: Follow-up visit in this 81-year-old lady with: Collapse and apparent syncopal episode at home etiology unclear History of cardiomyopathy, paroxysmal atrial fibrillation presenting with acute respiratory failure requiring intubation now extubated. Patient feeling much better. Patient reportedly spiked temperature to 38.9 C last night. Patient denies feeling feverish. Denies shortness of breath, chest pain, cough. States he feels perfectly well and was hopeful to g
[2021-10-06 18:57] LABS: Influenza Control Positive
[2021-10-06 19:03] LABS: Add Urine Microscopic? YES; Appearance Urine Clear (Clear); Bacteria Urine 2+ /hpf; Bilirubin Urine Negative (Negative); Blood Urine 1+ (Negative); Color Urine Yellow (Yellow); Glucose Urine UA Negative (Negative); Ketones Urine Negative (Negative); Leukocyte Esterase Ur Negative LEU/UL (Negative); Mucus Urine Rare /lpf; Nitrate Urine Positive (Negative); Protein Urine Negative (Negative); RBC Urine 0-2 /hpf (0-2); Squamous Epithelial Cell Urine Rare /hpf (Few); Urobilinogen Urine Negative mg/dL (<2.0)
[2021-10-06] MEDS: ACETAMINOPHEN 325 MG TABLET 650 MG PO (20:51)
[2021-10-07] VITALS (8 sets, daily range): BP systolic 100–110; BP diastolic 50–53; PULSE 60–80; RESP 16–18; TEMP 36.1–36.2; O2SAT 91–95
[2021-10-07 04:35] LABS: Osmolality, Urine 380 mOsm/kg (50-1200)
[2021-10-07 05:41] LABS: Hematocrit 27.4 % (37.0-47.0); Hemoglobin 8.9 g/dL (12.0-15.0); Mean Corpuscular HGB Conc 32.5 g/dl (32-36); Mean Corpuscular Hemoglobin 30.2 pg (26-34); Mean Corpuscular Volume 92.9 fl (80-100); Mean Platelet Volume 10.6 fl (7.4-10.4); Platelet Count Result 193 k/mm3 (150-375); Red Blood Count 2.95 M/mm3 (4.2-5.4); Red Cell Distribution Width 14.7 % (11.5-14.5); White Blood Count 5.5 K/mm3 (4.5-10.0)
[2021-10-07] MEDS: LEVOTHYROXINE SODIUM 25 MCG TABLET PO (05:46)
[2021-10-07 05:55] LABS: Alanine Aminotransferase 67 U/L (4-35); Alkaline Phosphatase 69 U/L (38-126); Anion Gap 5 mmol/L (8-16); Aspartate Amino Transferase 46 U/L (14-36); Bilirubin,Total 0.4 mg/dL (0.2-1.3); Blood Urea Nitrogen 21 mg/dL (7-17); Calcium 8.4 mg/dL (8.4-10.2); Carbon Dioxide 27 mmol/L (22-30); Chloride 100 mmol/L (98-107); Estimated CRCL calculation 25 ml/min; Estimated Glomerular Filt Rate 47; Glucose 107 mg/dL (65-110); Magnesium 1.8 mg/dL (1.6-2.3); Potassium 4.1 mmol/L (3.4-5.0); Sodium 132 mmol/L (137-145)
[2021-10-07 06:01] LABS: Iron 38 ug/dL (37-170)
[2021-10-07 06:10] LABS: Percent Iron Saturation 15 % (20-50)
[2021-10-07] MEDS: APIXABAN 2.5 MG TABLET PO (08:26)
[2021-10-07] MEDS: SACUBITRIL/VALSARTAN 24-26 MG TABLET 1 TAB PO (08:26)
[2021-10-07] MEDS: GABAPENTIN 300 MG CAPSULE PO (08:26)
[2021-10-07] MEDS: METOPROLOL SUCCINATE EXT REL 25 MG TABCR PO (08:26)
[2021-10-07] MEDS: AMIODARONE HCL 200 MG TABLET PO (08:27)
[2021-10-07] MEDS: FUROSEMIDE 20 MG TABLET PO (08:27)
[2021-10-07] MEDS: CLOPIDOGREL BISULFATE 75 MG TABLET PO (08:27)
[2021-10-07] MEDS: PANTOPRAZOLE 40 MG TABLET PO (08:27)
[2021-10-07 09:19] LABS: Folic Acid 17.2 ng/mL (2.76->20); Vitamin B12 > 1000.0 pg/mL (239-931)
[2021-10-07 13:55] LABS: EDCOVIDSCREEN Negative (Negative)
--- NOTE | 2021-10-07 14:16 | PM.DS ---
DS: Admitting Diagnosis Discharge Date 10/07/21 Admitting Diagnosis Unresponsive episode DS: Discharge Diagnosis Discharge Diagnosis (1) Fever: Code(s): R50.9 - Fever, unspecified Status: Acute Assessment and Plan: Patient with fever to 102.7. Etiology unclear. No significant symptoms except for cough. WBC normal. Chest x-ray showing resolving pulmonary edema. Influenza and rapid COVID test were negative. UA repeated but not consistent with UTI and she was not having any urinary symptoms. We held off on abx. She was monitored for about 48 hours and did not have any further fevers. Possible viral. Will follow up on urine culture. (2) Acute respiratory failure: Code(s): J96.00 - Acute respiratory failure, unspecified whether with hypoxia or hypercapnia Status: Acute Assessment and Plan: Patient required intubation in the field but had difficulty placing ETT. Patient ultimately intubated in the ED for airway protection. She regained consciousness and mechanical ventilation weaned to the point of extubation 10/03. CXR 10/04 showing worsening diffuse lung disease related to pulmonary edema that was treated with Lasix IV. She was on 4L but weaned to room air. Resolved. (3) Altered mental status: Qualifiers: Altered mental status type: coma Coma depth: unspecified coma depth Qualified Code(s): R40.20 - Unspecified coma Code(s): R41.82 - Altered mental status, unspecified Status: Acute Assessment and Plan: Patient found unresponsive and she has no memory of the event. Brain MR showing right frontal lobe encephalomalacia but no acute findings. Cervical spine CT showing no acute findings. UA on admisison was clear. Labs unrevealing for the etiology. She did have low sodium with metabolic acidosis and GIL. Glucose okay here. Seizure? Malignant rhythm? No issues on tele. (4) Congestive heart failure: Code(s): I50.9 - Heart failure, unspecified Status: Acute Assessment and Plan: Patient has a hx of CHF. 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 BNP 5050. CXR showing either edema va PNA (favor the former). Patient with Acute on Chronic systolic and diastolic CHF. Treated with IV Lasix with improvement and now back on oral Lasix. We continued Toprol XL, Entresto. ST-T wave changes improved on repeat EKG (5) Elevated troponin: Code(s): R77.8 - Other specified abnormalities of plasma proteins Status: Acute Assessment and Plan: Patient had a STEMI in February 2021 but unable to intervene since she had an ongoing GI bleed. Trop elevated here at 0.1 and was flat but higher to 0.28 but felt related to the acute CHF exacerbation/flash pulm edema. EKG showing Left BBB which is not new (IVCD noted prior). No complaints of chest pain. Home meds resumed. Plavix added. Cardiology followed and appreciate their input. (6) GIL (acute kidney injury): Code(s): N17.9 - Acute kidney failure, unspecified Status: Acute Assessment and Plan: Cr was up to 1.7 on admission. Renal US showing no acute findings. Dehydration? Related to Bactrim? With IV fluids, Cr improved to 1.0 but became fluid overloaded requiring Lasix IV. IV fluids off and now back on oral Lasix. Cr stable 1-1.2 range. Explained that Bactrim should be stopped. (7) Chronic hyponatremia: Code(s): E87.1 - Hypo-osmolality and hyponatremia Status: Acute Assessment and Plan: Patient has chronic hyponatremia to 131-135. Na low to 125 on admission. Jazzmine 74 but then 34 on repeat with FENa 0.36%. Na also is up and down ranging from 125-131 here. Sodium 132 at time of discharge. (8) Elevated LFTs: Code(s): R79.89 - Other specified abnormal findings of blood chemistry Status: Acute Assessment and Plan: AST and ALT elevated on admission but have been elevated before. Abd
--- NOTE | 2021-10-09 15:56 | PC.NURSE ---
Urine cx growing Citrobacter freundii. Dr. Wilson aware. Called patient with information. Patient states agreement and understanding. Called Cefdinir 300 mg po daily for 5 days into [facility] on the [facility].
== END 2021-10-07 17:06 | disposition home or self-care (01) | DRG 291 ==
LOC: ANHED 17:12 → ANHICU 23:12 → ANH2MED 10-06 09:56 → ANHICU 10-09 10:34
PROVIDERS: Internal Medicine; Physician Assistant; Admitting Provider Family Medicine; Emergency Provider Emergency Medicine; PCP Family Medicine; Visit Provider Internal Medicine
DX: I50.43 Acute on chronic combined systolic (congestive) and diastolic (congestive) heart failure (principal); J96.00 Acute respiratory failure, unspecified whether with hypoxia or hypercapnia; N17.9 Acute kidney failure, unspecified; E87.1 Hypo-osmolality and hyponatremia; E87.2 Acidosis; Z20.822 Contact with and (suspected) exposure to COVID-19; B34.9 Viral infection, unspecified; I48.0 Paroxysmal atrial fibrillation; E11.22 Type 2 diabetes mellitus with diabetic chronic kidney disease; E86.0 Dehydration; I25.10 Atherosclerotic heart disease of native coronary artery without angina pectoris; N18.30 Chronic kidney disease, stage 3 unspecified; E03.9 Hypothyroidism, unspecified; E78.2 Mixed hyperlipidemia; R41.89 Other symptoms and signs involving cognitive functions and awareness; E11.42 Type 2 diabetes mellitus with diabetic polyneuropathy; I73.9 Peripheral vascular disease, unspecified; E55.9 Vitamin D deficiency, unspecified; I44.7 Left bundle-branch block, unspecified; Z95.5 Presence of coronary angioplasty implant and graft; Z79.01 Long term (current) use of anticoagulants; I25.2 Old myocardial infarction
CPT/HCPCS: 31500; 36415; 36600; 70450; 70551; 71045; 71046; 72125; 76705; 76775; 80048; 80053; 80074; 80307; 81001; 81003; 82550; 82570; 82607; 82728; 82746; 82805; 82948; 83540; 83550; 83605; 83615; 83735; 83880; 83930; 83935; 84295; 84300; 84443; 84484; 85025; 85027; 85380; 85610; 85730; 86140; 87040; 87077; 87086; 87088; 87186; 87426; 87804; 93005; 93306; 93880; 96365; 97110; 97116; 97161; 97165; 97535; 99291; A9270; C9113; C9803; J1644; J1940; J2270; J2405; J2704; J7030; J7120

== ENCOUNTER 2021-10-22 19:50 | Inpatient (IN) | payer MEDICARE, BC, SELFPAY ==
[2021-10-22] VITALS (15 sets, daily range): BP systolic 105–155; BP diastolic 87–92; PULSE 71–85; RESP 20–36; TEMP 36.2; O2SAT 88–97
--- NOTE | ~2021-10-22 | XR_ITS ---
EXAMINATION: XR chest 1V portable DATE: 10/25/2021 13:07 INDICATION: New onset shortness of breath, cough and fever TECHNIQUE: frontal view of the chest was obtained. COMPARISON: Chest radiograph dated 10/22/2021 FINDINGS: Diffuse increased interstitial pattern with peripheral Sandrita B-lines throughout both lungs with mild pulmonary edema. Prior small pleural effusions. Resolved on the left and markedly decrease in the ri ght with minimal residual pleural effusion at the right costophrenic angle. Mild airspace opacities a t the bilateral lung bases could represent or focal pulmonary edema, atelectasis or pneumonia. No pne umothorax. Cardiomegaly. IMPRESSION: 1. Likely congestive heart failure with cardiomegaly and diffuse pulmonary edema throughout both lung s 2. Decreased now tiny right pleural effusion and resolution of prior left pleural effusion. 3. Mild more patchy airspace opacities in the bilateral lung bases which could represent additional m ore focal pulmonary edema, atelectasis or pneumonia. Reviewed, dictated and finalized at location B. RENTAL SUPERVISOR IMPRESSION: 1. Likely congestive heart failure with cardiomegaly and diffuse pulmonary jeff a throughout both lungs 2. Decreased now tiny right pleural effusion and resolution of prior left pleur al effusion. 3. Mild more patchy airspace opacities in the bilateral lung bases which could represent additional more focal pulmonary edema, atelectasis or pneumonia.
--- NOTE | ~2021-10-22 | XR_ITS ---
EXAMINATION: XR chest 1V portable DATE: 10/22/2021 22:16 INDICATION: Shortness of breath. Cough. TECHNIQUE: A single frontal view of the chest was obtained. COMPARISON: Chest 2 views 10/06/2021, CT abdomen and pelvis 03/06/2021 FINDINGS: There are small pleural effusions. There is a diffuse interstitial pattern in the lungs. Th ere are airspace opacities in the perihilar regions and at the lung bases. No pneumothorax. Cardiomeg yasemin is noted. IMPRESSION: 1. Diffuse lung disease, likely moderate pulmonary edema with basilar atelectasis or less likely pneu monia. 2. Small pleural effusions. 3. Cardiomegaly. Reviewed, dictated and finalized at location A. MACHINE OPERATOR IMPRESSION: 1. Diffuse lung disease, likely moderate pulmonary edema with basilar atelectas is or less likely pneumonia. 2. Small pleural effusions. 3. Cardiomegaly.
--- NOTE | 2021-10-22 22:06 | ECG_ITS ---
Measurements Intervals [place] Rate: 72 P: 71 [place]: 126 QRS: 29 QRSD: 134 T: 237 QT: 408 QTc: 447 Interpretive Statements SINUS RHYTHM INTRAVENTRICULAR CONDUCTION DELAY ANTEROSEPTAL INFARCT, AGE INDETERMINATE ST-T WAVE ABNORMALITY IN INF/LAT LEADS- CONSIDER ISCHEMIA BASELINE ARTIFACT- I, II, III, AVR, AVL, AVF, V1-V6 ABNORMAL ECG Electronically Signed On 10-23-2021 6:16:01 [employer] by Anatoliy Bolton D.O.
--- NOTE | 2021-10-22 22:09 | ED.GENADULT ---
HPI - General Adult General Chief complaint: Shortness of Breath/Dyspnea Stated complaint: Difficulty Breathing Time Seen by Provider: 10/22/21 21:57 Source: patient and RN notes reviewed History of Present Illness HPI narrative: Patient is a 81 y/o female complaining of moderate SOB for last 2 days. She states that her symptoms is present at rest, but worse when she tries to go to the bathroom. She also has some chest pain and leg swelling. She states that she ate some chilli yesterday which may have caused fluid retention. She states that she has history of heart failure. She has been vaccinated against COVID. Related Data Home Medications Medication Instructions Recorded Confirmed gabapentin 300 mg capsule 300 mg PO DAILY 07/26/21 10/23/21 nitroglycerin 0.3 mg sublingual 0.3 mg SUBLINGUAL Q5M PRN 09/18/21 10/23/21 tablet pantoprazole 40 mg tablet,delayed 40 mg PO EVERY OTHER DAY tablet 09/18/21 10/23/21 release gabapentin 300 mg PO DAILY PRN 10/02/21 10/23/21 furosemide 40 mg PO DAILY 10/23/21 10/23/21 isosorbide mononitrate 30 mg PO DAILY 10/23/21 10/23/21 Allergies Allergy/AdvReac Type Severity Reaction Status Date / Time No Known Allergies Verified 10/23/21 12:19 Review of Systems Constitutional: Constitutional: Denies chills, Denies fever(s), Denies headache(s) and Denies weakness Eyes: Eyes: Denies blurry vision ENT: Denies headache(s) and Denies neck pain Cardiovascular: Cardiovascular: Reports chest pain, Reports leg edema and Reports dyspnea Respiratory: Respiratory: Denies cough and Reports dyspnea Gastrointestinal: Gastrointestinal: Denies abdominal pain, Denies diarrhea, Denies nausea and Denies vomiting Genitourinary: Genitourinary: Denies hematuria and Denies dysuria Musculoskeletal: Musculoskeletal: Denies back pain and Denies neck pain Neurologic: Denies headache(s) and Denies weakness PMFSH Past Medical History Medical History Allergic rhinitis Atherosclerotic heart disease of [place] coronary artery without angina pectoris Atrial fibrillation Chronic anemia Chronic hyponatremia Chronic low back pain without sciatica Chronic renal insufficiency, stage III (moderate) Congestive heart failure Echocardiogram in February 2021 showed reduced left ventricular systolic function with an EF of 35% and akinesis of the basal inferior wall with hypokinesis of the apical septal, apical and mid anterior marroquin. Grade 2 diastolic dysfunction also noted. Gastric ulcer Hypothyroidism, unspecified Mixed hyperlipidemia Peripheral neuropathy, idiopathic Peripheral vascular disease Thoracic kyphosis Type 2 diabetes mellitus without complication Vitamin D deficiency Surgical History Surgical History Fracture of left hip requiring operative repair History of carpal tunnel surgery of right wrist History of cataract surgery History of heart artery stent History of inguinal hernia repair History of repair of right rotator cuff History of sinus surgery Interdigital neuroma of left foot Family History Family History (Updated 10/23/21 @ 12:32 by Amarilis Harvey RN) Mother Family history of heart disease in male family member before age 55 Hypertension Family history of cardiovascular disease Family history of coronary artery disease Father Family history of lung cancer Sibling Family history of heart disease in male family member before age 55 Social History Social History Social History: Surrogate decision maker: Garcia Srinivasan, son. Code status: Full code. Smoking status: Never smoker Second hand tobacco smoke exposure: No Alcohol intake: never Substance use: never Spiritual care concerns: No Exam Const: General: well developed Orientation/consciousness: oriented to person, oriented to place, oriented to time an
[2021-10-22 22:27] LABS: Basophils Percent Auto 0.1 % (0.2-1.2); Hematocrit 33.2 % (37.0-47.0); Hemoglobin 10.1 g/dL (12.0-15.0); Immature Granulocyte Absolute 0.03 K/mm3 (0.00-0.031); Immature Granulocyte Percent A 0.4 % (0-0.5); Lymphocytes Percent Auto 8.2 % (18.3-44.2); Mean Corpuscular HGB Conc 30.4 g/dl (32-36); Mean Corpuscular Hemoglobin 30.6 pg (26-34); Mean Corpuscular Volume 100.6 fl (80-100); Monocytes Absolute Auto 0.6 K/mm3 (0.1-0.6); Monocytes Percent Auto 6.6 % (2.6-8.5); Neutrophils Absolute Auto 7.2 K/mm3 (1.3-6.7); Neutrophils Percent Auto 84.7 % (45.5-73.1); Platelet Count Result 257 k/mm3 (150-375); Red Cell Distribution Width 16.1 % (11.5-14.5); White Blood Count 8.5 K/mm3 (4.5-10.0)
[2021-10-22 22:38] LABS: Alanine Aminotransferase 153 U/L (4-35); Albumin Level 4.4 g/dL (3.5-5.1); Alkaline Phosphatase 125 U/L (38-126); Anion Gap 10 mmol/L (8-16); Aspartate Amino Transferase 123 U/L (14-36); Bilirubin,Total 0.7 mg/dL (0.2-1.3); Blood Urea Nitrogen 23 mg/dL (7-17); Carbon Dioxide 26 mmol/L (22-30); Chloride 98 mmol/L (98-107); Estimated Glomerular Filt Rate 33; Glucose 127 mg/dL (65-110); Potassium 4.7 mmol/L (3.4-5.0); Sodium 134 mmol/L (137-145)
[2021-10-22] MEDS: FUROSEMIDE INJ 40 MG/4 ML VIAL IV PUSH (22:38)
[2021-10-22 22:39] LABS: EDCOVIDSCREEN Negative (Negative)
[2021-10-22 22:46] LABS: NT Pro B Type Natriuretic Pept 19400 pg/mL (5-100)
[2021-10-22 22:52] LABS: Troponin I 0.047 ng/mL (0.000-0.034)
[2021-10-23] VITALS (48 sets, daily range): BP systolic 102–233; BP diastolic 57–180; PULSE 71–91; RESP 16–37; TEMP 36.7–37.1; O2SAT 77–100; BMI 25.9
--- NOTE | 2021-10-23 00:06 | PC.NURSE ---
pt anxious requests medication. md notified. vs stable.
[2021-10-23] MEDS: hydrOXYzine pamoate 25 MG CAPSULE PO (00:30)
[2021-10-23] MEDS: PROMETHAZINE HCL 25 MG/ML AMPUL 12.5 MG IM (01:44)
[2021-10-23 02:20] LABS: Troponin I 0.041 ng/mL (0.000-0.034)
[2021-10-23] MEDS: FUROSEMIDE INJ 40 MG/4 ML VIAL IV PUSH ×3 (05:02→16:30)
[2021-10-23 05:48] LABS: Troponin I 0.041 ng/mL (0.000-0.034)
--- NOTE | 2021-10-23 12:14 | PC.NURSE ---
Updated pt son on pt status
--- NOTE | 2021-10-23 12:55 | PC.NURSE ---
Pt declined meal, pt states slight nausea, provided sprite pt states it helped
--- NOTE | 2021-10-23 15:00 | PM.IMHP ---
H&P: HPI History of Present Illness Date/Time: 10/23/21 0872 Chief Complaint: SOB Narrative: Layla Srinivasan is an 81 year old lady with a past medical history significant for CHF, STEMI (02/2021), CAD s/p KOURTNEY (2010), Afib, CKD III, DM type II, who has been admitted after presenting to the ED with worsening SOB for the past 2 days. She reports associated ALEXIS and bilateral lower extremity edema. She also reports having some chili yesterday. She denied any fever, HASSAN, dizziness, chest pain, cough, palpitations. She has been fully vaccinated against COVID 19. She was recently hospitalized here from 10/02-10/07/2021 and treated for ARF, AMS and fever and was discharged home. ED evaluation including and revealed: ECG showed normal rate, sinus rhythm, no ectopy and NL axis; proBNP elevated at 19,400; Troponin elevated with falt trend-->0.047-->0.041-->0.041; AST/ALT 123/153; BUN/Cr 23/1.5; CXR showed likely moderate pulmonary edema with basilar atelectasis or less likely pneumonia; small pleural effusions; and cardiomegaly. She was treated with supplemental oxygen at 4 L NC; and IV Lasix. She hs been admitted to observation status for further evaluation and treatment. Review of Systems Review of Systems: All systems reviewed & are unremarkable except as noted in HPI and below PMFSH Past Medical History Medical History Allergic rhinitis Atherosclerotic heart disease of [place] coronary artery without angina pectoris Atrial fibrillation Chronic anemia Chronic hyponatremia Chronic low back pain without sciatica Chronic renal insufficiency, stage III (moderate) Congestive heart failure Echocardiogram in February 2021 showed reduced left ventricular systolic function with an EF of 35% and akinesis of the basal inferior wall with hypokinesis of the apical septal, apical and mid anterior marroquin. Grade 2 diastolic dysfunction also noted. Gastric ulcer Hypothyroidism, unspecified Mixed hyperlipidemia Peripheral neuropathy, idiopathic Peripheral vascular disease Thoracic kyphosis Type 2 diabetes mellitus without complication Vitamin D deficiency Surgical History Surgical History Fracture of left hip requiring operative repair History of carpal tunnel surgery of right wrist History of cataract surgery History of heart artery stent History of inguinal hernia repair History of repair of right rotator cuff History of sinus surgery Interdigital neuroma of left foot Family History Family History Mother Family history of heart disease in male family member before age 55 Hypertension Family history of cardiovascular disease Family history of coronary artery disease Father Family history of lung cancer Sibling Family history of heart disease in male family member before age 55 Social History Social History Social History: Surrogate decision maker: Garcia Srinivasan, kameron. Code status: Full code. Smoking status: Never smoker Second hand tobacco smoke exposure: No Alcohol intake: never Substance use: never Spiritual care concerns: No Meds Home Medications and Allergies Home Medications Medication Instructions Recorded Confirmed Type Eliquis 2.5 mg PO BID 30 Days #60 tablet 05/31/21 10/23/21 Rx Entresto 1 tablet PO Q12HR 30 Days #30 05/31/21 10/23/21 Rx tablet amiodarone [Pacerone] 200 mg PO DAILY 30 Days #30 tablet 05/31/21 10/23/21 Rx metoprolol succinate [Toprol XL] 25 mg PO DAILY 30 Days #30 tablet 05/31/21 10/23/21 Rx gabapentin 300 mg capsule 300 mg PO DAILY 07/26/21 10/23/21 History levothyroxine 25 mcg tablet 25 mcg PO DAILY@0630 30 Days #30 08/13/21 10/23/21 Rx tablet nitroglycerin 0.3 mg sublingual 0.3 mg SUBLINGUAL Q5M PRN 09/18/21 10/23/21 History tablet pantoprazole 40
[2021-10-23] MEDS: APIXABAN 2.5 MG TABLET PO (16:31)
--- NOTE | 2021-10-23 17:01 | PC.NURSE ---
Gave report to [place]
[2021-10-23 17:23] LABS: Glucose Point of Care 163 mg/dl (65-105)
--- NOTE | 2021-10-23 17:47 | PC.NURSE ---
Informed pt on Garcia pt is upstairs in room 240
--- NOTE | 2021-10-23 17:58 | ADMGEN ---
This patient, Layla Srinivasan, was admitted to 2 Medical Room 240-. Patient/family oriented to hospital policies and general routines including ID bracelet, bed and alarms, visiting hours, pain management, procedures, bathroom and other care routines, personal items, smoking policy, room service/diet, and visiting hours. Information on how to activate the Rapid Response Team has been discussed. Patient/Family are encouraged to report perceived risks to care and to ask questions if they do not understand what they are told or what they should do.
[2021-10-23 21:10] LABS: Glucose Point of Care 155 mg/dl (65-105)
[2021-10-23] MEDS: SACUBITRIL/VALSARTAN 24-26 MG TABLET 1 TAB PO (21:23)
[2021-10-24] VITALS (11 sets, daily range): BP systolic 113–133; BP diastolic 50–74; PULSE 73–92; RESP 16–20; TEMP 36.7–37.8; O2SAT 90–99
[2021-10-24 05:47] LABS: Hemoglobin 9.2 g/dL (12.0-15.0); Mean Corpuscular HGB Conc 31.7 g/dl (32-36); Mean Corpuscular Hemoglobin 31.8 pg (26-34); Mean Corpuscular Volume 100.3 fl (80-100); Mean Platelet Volume 10.7 fl (7.4-10.4); Platelet Count Result 202 k/mm3 (150-375); Red Blood Count 2.89 M/mm3 (4.2-5.4); Red Cell Distribution Width 16.2 % (11.5-14.5); White Blood Count 9.4 K/mm3 (4.5-10.0)
[2021-10-24 06:05] LABS: Anion Gap 8 mmol/L (8-16); Blood Urea Nitrogen 21 mg/dL (7-17); Calcium 8.4 mg/dL (8.4-10.2); Carbon Dioxide 28 mmol/L (22-30); Chloride 97 mmol/L (98-107); Estimated CRCL calculation 28 ml/min; Estimated Glomerular Filt Rate 47; Glucose 116 mg/dL (65-110); Potassium 3.7 mmol/L (3.4-5.0); Sodium 133 mmol/L (137-145)
[2021-10-24] MEDS: LEVOTHYROXINE SODIUM 25 MCG TABLET PO (06:09)
[2021-10-24 07:31] LABS: Hemoglobin A1C 5.8 % (<5.7)
[2021-10-24 07:47] LABS: Glucose Point of Care 124 mg/dl (65-105)
[2021-10-24] MEDS: FUROSEMIDE INJ 40 MG/4 ML VIAL IV PUSH ×2 (08:07→16:37)
[2021-10-24] MEDS: APIXABAN 2.5 MG TABLET PO ×2 (08:08→16:22)
[2021-10-24] MEDS: GABAPENTIN 300 MG CAPSULE PO (08:08)
[2021-10-24] MEDS: SACUBITRIL/VALSARTAN 24-26 MG TABLET 1 TAB PO ×2 (08:08→20:06)
[2021-10-24] MEDS: METOPROLOL SUCCINATE EXT REL 25 MG TABCR PO (08:08)
[2021-10-24] MEDS: ISOSORBIDE MONONITRATE 30 MG TAB.ER.24H PO (08:08)
[2021-10-24] MEDS: PANTOPRAZOLE 40 MG TABLET PO (08:08)
[2021-10-24] MEDS: CLOPIDOGREL BISULFATE 75 MG TABLET PO (08:08)
[2021-10-24 11:31] LABS: Glucose Point of Care 186 mg/dl (65-105)
[2021-10-24] MEDS: BENZOCAINE/MENTHOL (*BKC) 18 EA LOZENGE 1 LOZENGE PO (12:24)
--- NOTE | 2021-10-24 13:31 | PM.IMPN ---
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, abnormal diastolic function and mild RV dysfunction, 10/03/2021 Consult cardiology IV Lasix Strict intake/output Daily weights Harshad Lambert BB, Entresto Tele monitoring (2) Acute and chronic respiratory failure with hypoxia: Code(s): J96.21 - Acute and chronic respiratory failure with hypoxia Status: Acute Assessment and Plan: 2/2 to above Supplemental O2 to keep sats >93% Treatment as above (3) Chronic hyponatremia: Code(s): E87.1 - Hypo-osmolality and hyponatremia Status: Acute Assessment and Plan: Na 134-->133 today Monitor (4) Elevated troponin: Code(s): R77.8 - Other specified abnormalities of plasma proteins Status: Resolved Assessment and Plan: Flat trend Likely 2/2 CHF Cardiology consulted (5) Atrial fibrillation: Qualifiers: Atrial fibrillation type: paroxysmal Qualified Code(s): I48.0 - Paroxysmal atrial fibrillation Code(s): I48.91 - Unspecified atrial fibrillation Status: Acute Assessment and Plan: SR Fausto COVINGTON, and Eliquis Cardiology consulted Tele monitoring (6) Type 2 diabetes mellitus without complication: Qualifiers: Diabetes mellitus long term care administrator insulin use: unspecified long term care administrator insulin use status Qualified Code(s): E11.9 - Type 2 diabetes mellitus without complications Code(s): E11.9 - Type 2 diabetes mellitus without complications Status: Acute Assessment and Plan: Hgb A1c 5.8 No home meds Hypoglycemic protocl Monitor (7) Chronic renal insufficiency, stage III (moderate): Qualifiers: Chronic kidney disease stage 3 subtype: stage 3a (GFR 45-59) Qualified Code(s): N18.31 - Chronic kidney disease, stage 3a Code(s): N18.3 - Chronic kidney disease, stage 3 (moderate) Status: Acute Assessment and Plan: Cr 1.5-->11 today, appears close to baseline Renally dose all meds Avoid nephrotoxins Monitor Additional Plan Code status: FULL DVT Ppx: on Eliquis Subjective Date/time seen: 10/24/21 13:31 Interval history: Pt seen and examined this a.m.; no acute events overnight; pt complaints of SOB and cough; denies any CP Review of Systems Review of Systems: All systems reviewed & are unremarkable except as noted in HPI and below Exam Const: General: no acute distress, alert and awake Orientation/consciousness: patient oriented x3 HENMT: Head: normocephalic and atraumatic Ears: hearing grossly normal bilaterally and external ears normal Face and sinus: face symmetric Mouth: Yes Normal oral and palatal mucosa present Eyes: Pupils: Equal, round and reactive pupils present EOM: EOMs intact bilaterally Neck: Neck: full ROM, trachea midline and no JVD Resp: Auscultation: other (coarse breath sounds ) Cardio: Jugular venous distension: no JVD Rate: regular rate Rhythm: regular rhythm Heart sounds: S1 normal heart sound present and S2 normal heart sound present GI: Inspection: normal to inspection Auscultation: normal bowel sounds : General: Yes no CVA tenderness Skin: General skin exam: normal color Rashes: no rashes Neuro: General: patient oriented x3, no focal motor deficits and CN's II-XI intact bilaterally Cranial nerves: Yes Equal, round and reactive pupils present Speech: normal speech Extrem: General: edema (trace) bilateral Psych: Appearance: grossly normal Affect: normal affect Judgement: Good judgement present (Psych) Objective Data Vital Signs Vital Signs: Vital Signs - 24 hr 10/23/21 16:12 10/23/21 16:15 10/23/21 16:30 Temperature Pulse Rate 78 78 78 Respiratory Rate 29 H 20 26 H Blood Pressure Pulse Oximetry 97 95
--- NOTE | 2021-10-24 14:19 | PM.CNCAR ---
Assessment and Plan Assessment and plan (1) Acute on chronic HFrEF (heart failure with reduced ejection fraction): Code(s): I50.23 - Acute on chronic systolic (congestive) heart failure Status: Acute Assessment and Plan: Patient presents with progressive exertional dyspnea, cough, lower extremity edema and weight gain after reduction in Lasix from 20 mg to 10 mg daily 2 weeks ago. Responding well to IV Lasix. Continue accurate input and output, daily weight, less than 2 g daily sodium intake. Patient will require more than 10 mg Lasix daily. She states she was doing very well discharged on 20 mg daily until was reduced. BNP significantly elevated chest x-ray with pulmonary vascular congestion and exam consistent with pulmonary edema. Plan to transition back to Lasix at least 20 mg daily, monitor renal function closely. (2) Paroxysmal atrial fibrillation: Code(s): I48.0 - Paroxysmal atrial fibrillation Status: Acute Assessment and Plan: Maintaining sinus rhythm. Continue current medical therapy with Toprol XL 25 mg daily. Remains on apixaban 2.5 mg daily in addition to clopidogrel 75 mg daily. H&H stable, monitor for bleeding. (3) Elevated troponin: Code(s): R77.8 - Other specified abnormalities of plasma proteins Status: Resolved Assessment and Plan: Type 2 infarction chronic elevation flat curve no symptoms suggestive of acute myocardial infarction. Continue medical therapy. (4) CAD (coronary artery disease): Qualifiers: Coronary Disease-Associated Artery/Lesion type: [place] artery [place] vs. transplanted heart: [place] heart Associated angina: without angina Qualified Code(s): I25.10 - Atherosclerotic heart disease of [place] coronary artery without angina pectoris Code(s): I25.10 - Atherosclerotic heart disease of [place] coronary artery without angina pectoris Status: Acute Assessment and Plan: Remote history of subacute STEMI managed 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ly which occurred in setting of GI bleed and severe anemia in the past. Was not on statin due to the abnormal LFTs previously. (5) Chronic renal insufficiency, stage III (moderate): Qualifiers: Chronic kidney disease stage 3 subtype: stage 3a (GFR 45-59) Qualified Code(s): N18.31 - Chronic kidney disease, stage 3a Code(s): N18.3 - Chronic kidney disease, stage 3 (moderate) Status: Acute Assessment and Plan: Stable. Continue to monitor closely with diuresis. (6) Anemia: Qualifiers: Anemia type: iron deficiency Iron deficiency anemia type: other iron deficiency Qualified Code(s): D50.8 - Other iron deficiency anemias Code(s): D64.9 - Anemia, unspecified Status: Acute Assessment and Plan: As above. Continue to follow H&H on anticoagulation and antiplatelet therapy. (7) History of GI bleed: Code(s): Z87.19 - Personal history of other diseases of the digestive system Status: Acute Assessment and Plan: Stable no evidence at this time. History of Present Illness History of Present Illness Consult date/time: Date of service: 10/24/21 14:19 Cardiology consultation at the request of Sintia Mejias APN of the [facility] for our opinion regarding congestive heart failure. Requesting physician: Sintia Mejias APN-C Consult reason: congestive heart failure Reason For Visit: chf, hypoxia Narrative: Patient is a very pleasant 81-year-old female with a past medical history significant for GI bleed, chronic anemia, history of STEMI February 2021, CAD remote intervention, paroxysmal atrial fibrillation, CKD stage 3, type 2 diabetes mellitus, chronic heart failure with reduced ejection fraction EF 35%, ischemic cardiomyopathy who was recently hospitalized for acute renal failure, altered mental status and febrile illness discharged home on 20 mg Lasix daily. She states she has been doing very well until her Lasi
[2021-10-24 17:09] LABS: Glucose Point of Care 122 mg/dl (65-105)
[2021-10-24 20:44] LABS: Glucose Point of Care 128 mg/dl (65-105)
[2021-10-25] VITALS (12 sets, daily range): BP systolic 98–128; BP diastolic 40–66; PULSE 65–102; RESP 16–20; TEMP 36.6–38.7; O2SAT 93–97
[2021-10-25 06:06] LABS: Anion Gap 3 mmol/L (8-16); Blood Urea Nitrogen 21 mg/dL (7-17); Calcium 8.1 mg/dL (8.4-10.2); Carbon Dioxide 32 mmol/L (22-30); Chloride 98 mmol/L (98-107); Estimated CRCL calculation 28 ml/min; Estimated Glomerular Filt Rate 47; Glucose 117 mg/dL (65-110); Potassium 3.3 mmol/L (3.4-5.0); Sodium 133 mmol/L (137-145)
[2021-10-25] MEDS: LEVOTHYROXINE SODIUM 25 MCG TABLET PO (06:09)
[2021-10-25 06:36] LABS: Hematocrit 26.3 % (37.0-47.0); Hemoglobin 8.3 g/dL (12.0-15.0); Mean Corpuscular HGB Conc 31.6 g/dl (32-36); Mean Corpuscular Hemoglobin 31.8 pg (26-34); Mean Corpuscular Volume 100.8 fl (80-100); Mean Platelet Volume 10.7 fl (7.4-10.4); Platelet Count Result 186 k/mm3 (150-375); Red Blood Count 2.61 M/mm3 (4.2-5.4); Red Cell Distribution Width 16.1 % (11.5-14.5); White Blood Count 8.1 K/mm3 (4.5-10.0)
[2021-10-25 07:54] LABS: Glucose Point of Care 119 mg/dl (65-105)
[2021-10-25] MEDS: BENZOCAINE/MENTHOL (*BKC) 18 EA LOZENGE 1 LOZENGE PO ×2 (08:56→16:58)
[2021-10-25] MEDS: METOPROLOL SUCCINATE EXT REL 25 MG TABCR PO (08:57)
[2021-10-25] MEDS: ISOSORBIDE MONONITRATE 30 MG TAB.ER.24H PO (08:57)
[2021-10-25] MEDS: GABAPENTIN 300 MG CAPSULE PO ×2 (08:57→23:35)
[2021-10-25] MEDS: CLOPIDOGREL BISULFATE 75 MG TABLET PO (08:58)
[2021-10-25] MEDS: SACUBITRIL/VALSARTAN 24-26 MG TABLET 1 TAB PO ×2 (08:58→20:34)
[2021-10-25] MEDS: APIXABAN 2.5 MG TABLET PO ×2 (08:58→16:58)
[2021-10-25] MEDS: FUROSEMIDE INJ 40 MG/4 ML VIAL IV PUSH ×2 (09:01→16:58)
--- NOTE | 2021-10-25 10:02 | PM.IMPN ---
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, abnormal diastolic function and mild RV dysfunction, 10/03/2021 Consult cardiology IV Lasix Strict intake/output Daily weights Harshad COVINGTON, Entresto Tele monitoring (2) Acute and chronic respiratory failure with hypoxia: Code(s): J96.21 - Acute and chronic respiratory failure with hypoxia Status: Acute Assessment and Plan: 2/2 to above Supplemental O2 to keep sats >93% Treatment as above (3) Chronic hyponatremia: Code(s): E87.1 - Hypo-osmolality and hyponatremia Status: Acute Assessment and Plan: Na 134-->133 today Monitor (4) Elevated troponin: Code(s): R77.8 - Other specified abnormalities of plasma proteins Status: Resolved Assessment and Plan: Flat trend Likely 2/2 CHF Cardiology consulted (5) Atrial fibrillation: Qualifiers: Atrial fibrillation type: paroxysmal Qualified Code(s): I48.0 - Paroxysmal atrial fibrillation Code(s): I48.91 - Unspecified atrial fibrillation Status: Acute Assessment and Plan: SR Fausto COVINGTON, and Eliarbenis Cardiology consulted Tele monitoring (6) Type 2 diabetes mellitus without complication: Qualifiers: Diabetes mellitus halfway insulin use: unspecified exterminator helper insulin use status Qualified Code(s): E11.9 - Type 2 diabetes mellitus without complications Code(s): E11.9 - Type 2 diabetes mellitus without complications Status: Acute Assessment and Plan: Hgb A1c 5.8 No home meds Hypoglycemic protocl Monitor (7) Chronic renal insufficiency, stage III (moderate): Qualifiers: Chronic kidney disease stage 3 subtype: stage 3a (GFR 45-59) Qualified Code(s): N18.31 - Chronic kidney disease, stage 3a Code(s): N18.3 - Chronic kidney disease, stage 3 (moderate) Status: Acute Assessment and Plan: Cr 1.5-->11 today, appears close to baseline Renally dose all meds Avoid nephrotoxins Monitor (8) HCAP (healthcare-associated pneumonia): Code(s): J18.9 - Pneumonia, unspecified organism Status: Acute Assessment and Plan: Bilateral Febrile Worsening CXR suggestive of bilateral pna Check procal, BC, urine antigen Empiric antibiotics IS Additional Plan Code status: FULL DVT Ppx: on Eliquis Subjective Date/time seen: 10/25/21 10:02 Interval history: 10/24/2021: Pt seen and examined this a.m.; no acute events overnight; pt complaints of SOB and cough; denies any CP 10/25/2021: Pt seen and evaluated this a.m.;low grade temp overnight; this afternoon; spiked temp 38.7; continues with cough Review of Systems Review of Systems: All systems reviewed & are unremarkable except as noted in HPI and below Exam Const: General: no acute distress, alert and awake Orientation/consciousness: patient oriented x3 HENMT: Head: normocephalic and atraumatic Ears: hearing grossly normal bilaterally and external ears normal Face and sinus: face symmetric Mouth: Yes Normal oral and palatal mucosa present Eyes: Pupils: Equal, round and reactive pupils present EOM: EOMs intact bilaterally Neck: Neck: full ROM, trachea midline and no JVD Resp: Auscultation: other (coarse breath sounds ) Cardio: Jugular venous distension: no JVD Rate: regular rate Rhythm: regular rhythm Heart sounds: S1 normal heart sound present and S2 normal heart sound present GI: Inspection: normal to inspection Auscultation: normal bowel sounds : General: Yes no CVA tenderness Back/Spine/Pelvis: Back: no CVA tenderness Skin: General skin exam: normal color Rashes: no rashes Neuro: General: patient oriented x3, no focal motor deficits and CN's II-XI intact bilaterally Orthodontic Laboratory Technician
[2021-10-25] MEDS: POTASSIUM CHLORIDE INJ 40 MEQ in SODIUM CHLORIDE 0.9% IV 500 ML 100 MEQ IVPB (11:42)
[2021-10-25 12:11] LABS: Glucose Point of Care 141 mg/dl (65-105)
[2021-10-25] MEDS: ACETAMINOPHEN 325 MG TABLET 650 MG PO (12:16)
--- NOTE | 2021-10-25 12:39 | PM.PNCARD ---
Progress Note: A&P Assessment and Plan (1) Acute on chronic HFrEF (heart failure with reduced ejection fraction): Code(s): I50.23 - Acute on chronic systolic (congestive) heart failure Status: Acute Assessment and Plan: Patient presents with progressive exertional dyspnea, cough, lower extremity edema and weight gain after reduction in Lasix from 20 mg to 10 mg daily 2 weeks ago. Responding well to IV Lasix. Continue accurate input and output, daily weight, less than 2 g daily sodium intake. Patient will require more than 10 mg Lasix daily as an outpatient. She states she was doing very well discharged on 20 mg daily until reduced. BNP significantly elevated chest x-ray with pulmonary vascular congestion and exam consistent with pulmonary edema. -while she says her breathing is improved in nearing her baseline she continues to complain of cough which is worse and now she is again febrile. Repeat chest x-ray. Anticipate may be able to reduce her IV Lasix or change to p.o. 40 mg daily, however, will review chest x-ray initially. Defer further workup with regards to febrile illness to primary service. COVID rapid antigen negative on 10/22/2020 which is concerning as she still requires 3 L nasal cannula with worsening cough. Consider COVID PCR if clinically indicated. (2) Paroxysmal atrial fibrillation: Code(s): I48.0 - Paroxysmal atrial fibrillation Status: Acute Assessment and Plan: Maintaining sinus rhythm. Continue current medical therapy with Toprol XL 25 mg daily. Remains on apixaban 2.5 mg daily in addition to clopidogrel 75 mg daily. H&H stable, monitor for bleeding. (3) Elevated troponin: Code(s): R77.8 - Other specified abnormalities of plasma proteins Status: Resolved Assessment and Plan: Type 2 infarction chronic elevation flat curve no symptoms suggestive of acute myocardial infarction. Continue medical therapy. (4) CAD (coronary artery disease): Qualifiers: Coronary Disease-Associated Artery/Lesion type: [place] artery [place] vs. transplanted heart: [place] heart Associated angina: without angina Qualified Code(s): I25.10 - Atherosclerotic heart disease of [place] coronary artery without angina pectoris Code(s): I25.10 - Atherosclerotic heart disease of [place] coronary artery without angina pectoris Status: Acute Assessment and Plan: Remote history of subacute STEMI managed 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ly which occurred in setting of GI bleed and severe anemia in the past. Was not on statin due to the abnormal LFTs previously. (5) Chronic renal insufficiency, stage III (moderate): Qualifiers: Chronic kidney disease stage 3 subtype: stage 3a (GFR 45-59) Qualified Code(s): N18.31 - Chronic kidney disease, stage 3a Code(s): N18.3 - Chronic kidney disease, stage 3 (moderate) Status: Acute Assessment and Plan: Stable. Continue to monitor closely with diuresis. Continue to monitor closely. Monitor electrolytes and replete as appropriate. (6) Anemia: Qualifiers: Anemia type: iron deficiency Iron deficiency anemia type: other iron deficiency Qualified Code(s): D50.8 - Other iron deficiency anemias Code(s): D64.9 - Anemia, unspecified Status: Acute Assessment and Plan: As above. Continue to follow H&H on anticoagulation and antiplatelet therapy. Stable thus far. (7) History of GI bleed: Code(s): Z87.19 - Personal history of other diseases of the digestive system Status: Acute Assessment and Plan: Stable no evidence at this time, but need to continue monitoring. Subjective Date/time seen: Date of service: 10/25/21 12:39 Follow-up for acute on chronic heart failure with reduced ejection fraction, history of atrial fibrillation Patient states she feels a little better. Breathing improved cough persists and in fact may be little bit worse. Cough is nonproductive. She d
[2021-10-25 16:26] LABS: Glucose Point of Care 166 mg/dl (65-105)
[2021-10-25 20:43] LABS: Glucose Point of Care 118 mg/dl (65-105)
[2021-10-26] VITALS (14 sets, daily range): BP systolic 102–118; BP diastolic 50–76; PULSE 69–94; RESP 16–20; TEMP 36.4–37.5; O2SAT 89–100
[2021-10-26 05:56] LABS: Hematocrit 27.1 % (37.0-47.0); Hemoglobin 8.5 g/dL (12.0-15.0); Mean Corpuscular HGB Conc 31.4 g/dl (32-36); Mean Corpuscular Hemoglobin 30.8 pg (26-34); Mean Corpuscular Volume 98.2 fl (80-100); Mean Platelet Volume 10.5 fl (7.4-10.4); Platelet Count Result 199 k/mm3 (150-375); Red Blood Count 2.76 M/mm3 (4.2-5.4); Red Cell Distribution Width 15.8 % (11.5-14.5); White Blood Count 8.2 K/mm3 (4.5-10.0)
[2021-10-26 06:15] LABS: Anion Gap 6 mmol/L (8-16); Blood Urea Nitrogen 23 mg/dL (7-17); Calcium 8.2 mg/dL (8.4-10.2); Carbon Dioxide 31 mmol/L (22-30); Chloride 99 mmol/L (98-107); Estimated CRCL calculation 26 ml/min; Estimated Glomerular Filt Rate 43; Glucose 140 mg/dL (65-110); Potassium 3.7 mmol/L (3.4-5.0); Sodium 136 mmol/L (137-145)
[2021-10-26] MEDS: LEVOTHYROXINE SODIUM 25 MCG TABLET PO (06:32)
[2021-10-26 07:44] LABS: Glucose Point of Care 127 mg/dl (65-105)
[2021-10-26] MEDS: FUROSEMIDE INJ 40 MG/4 ML VIAL IV PUSH ×2 (08:01→16:00)
[2021-10-26] MEDS: CLOPIDOGREL BISULFATE 75 MG TABLET PO (08:01)
[2021-10-26] MEDS: APIXABAN 2.5 MG TABLET PO ×2 (08:01→16:00)
[2021-10-26] MEDS: METOPROLOL SUCCINATE EXT REL 25 MG TABCR PO (08:02)
[2021-10-26] MEDS: PANTOPRAZOLE 40 MG TABLET PO (08:02)
[2021-10-26] MEDS: ISOSORBIDE MONONITRATE 30 MG TAB.ER.24H PO (08:02)
[2021-10-26] MEDS: SACUBITRIL/VALSARTAN 24-26 MG TABLET 1 TAB PO ×2 (08:02→20:32)
[2021-10-26] MEDS: GABAPENTIN 300 MG CAPSULE PO (08:02)
--- NOTE | 2021-10-26 09:46 | PM.PNCARD ---
Progress Note: A&P Assessment and Plan (1) Acute on chronic HFrEF (heart failure with reduced ejection fraction): Code(s): I50.23 - Acute on chronic systolic (congestive) heart failure Status: Acute Assessment and Plan: Patient presents with progressive exertional dyspnea, cough, lower extremity edema and weight gain after reduction in Lasix from 20 mg to 10 mg daily 2 weeks ago. Responding well to IV Lasix. Continue accurate input and output, daily weight, less than 2 g daily sodium intake. Patient will require more than 10 mg Lasix daily as an outpatient. She states she was doing very well discharged on 20 mg daily until reduced. BNP significantly elevated chest x-ray with pulmonary vascular congestion and exam consistent with pulmonary edema. -while she says her breathing is improved in nearing her baseline she continues to complain of cough. Remains on 3 L of O2 via nasal cannula, repeat chest x-ray largely unchanged perhaps slight increase in opacities bilateral lung bases. Therefore, will continue IV Lasix today but need to be cautious with regards to renal perfusion. Creatinine and BUN slightly increased from yesterday. Anticipate will need to change to oral diuretic within the next 24-48 hours. Continue accurate input and output, daily weight. Try to wean oxygen as tolerated. (2) Paroxysmal atrial fibrillation: Code(s): I48.0 - Paroxysmal atrial fibrillation Status: Acute Assessment and Plan: Maintaining sinus rhythm. Continue current medical therapy with Toprol XL 25 mg daily. Remains on apixaban 2.5 mg daily in addition to clopidogrel 75 mg daily. H&H stable, monitor for bleeding. (3) Elevated troponin: Code(s): R77.8 - Other specified abnormalities of plasma proteins Status: Resolved Assessment and Plan: Type 2 infarction chronic elevation flat curve no symptoms suggestive of acute myocardial infarction. Continue medical therapy. (4) CAD (coronary artery disease): Qualifiers: Associated angina: without angina Coronary Disease-Associated Artery/Lesion type: [place] artery [place] vs. transplanted heart: [place] heart Qualified Code(s): I25.10 - Atherosclerotic heart disease of [place] coronary artery without angina pectoris Code(s): I25.10 - Atherosclerotic heart disease of [place] coronary artery without angina pectoris Status: Acute Assessment and Plan: Remote history of subacute STEMI managed 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ly which occurred in setting of GI bleed and severe anemia in the past. Was not on statin due to the abnormal LFTs previously. (5) Chronic renal insufficiency, stage III (moderate): Qualifiers: Chronic kidney disease stage 3 subtype: stage 3a (GFR 45-59) Qualified Code(s): N18.31 - Chronic kidney disease, stage 3a Code(s): N18.3 - Chronic kidney disease, stage 3 (moderate) Status: Acute Assessment and Plan: Stable. Continue to monitor closely with diuresis. Continue to monitor closely. Monitor electrolytes and replete as appropriate. (6) Anemia: Qualifiers: Anemia type: iron deficiency Iron deficiency anemia type: other iron deficiency Qualified Code(s): D50.8 - Other iron deficiency anemias Code(s): D64.9 - Anemia, unspecified Status: Acute Assessment and Plan: As above. Continue to follow H&H on anticoagulation and antiplatelet therapy. Stable thus far. (7) History of GI bleed: Code(s): Z87.19 - Personal history of other diseases of the digestive system Status: Acute Assessment and Plan: Stable no evidence at this time, but need to continue monitoring. Subjective Date/time seen: Date of service:10/26/21 09:46 Follow-up for CHF, cardiomyopathy, history of atrial fibrillation 10/26/20 patient states she feels little better but notes ongoing cough. No shortness of breath at rest. She remains on 3 L nasal cannula. BP stable. Denies palpi
[2021-10-26 11:36] LABS: Glucose Point of Care 115 mg/dl (65-105)
--- NOTE | 2021-10-26 14:40 | PM.IMPN ---
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, abnormal diastolic function and mild RV dysfunction, 10/03/2021 Consult cardiology Continue IV Lasix, transition to oral 1-2 days per cards Strict intake/output Daily weights Harshad COVINGTON, [place] Tele monitoring (2) Acute and chronic respiratory failure with hypoxia: Code(s): J96.21 - Acute and chronic respiratory failure with hypoxia Status: Acute Assessment and Plan: 2/2 to above Supplemental O2 to keep sats >93%, wean as tolerated Treatment as above (3) Chronic hyponatremia: Code(s): E87.1 - Hypo-osmolality and hyponatremia Status: Acute Assessment and Plan: Na 134-->133-->136 today Monitor (4) Elevated troponin: Code(s): R77.8 - Other specified abnormalities of plasma proteins Status: Resolved Assessment and Plan: Flat trend Likely 2/2 CHF Cardiology consulted (5) Atrial fibrillation: Qualifiers: Atrial fibrillation type: paroxysmal Qualified Code(s): I48.0 - Paroxysmal atrial fibrillation Code(s): I48.91 - Unspecified atrial fibrillation Status: Acute Assessment and Plan: SR Fausto COVINGTON, and [facility] consulted Tele monitoring (6) Type 2 diabetes mellitus without complication: Qualifiers: Diabetes mellitus care home insulin use: unspecified care home insulin use status Qualified Code(s): E11.9 - Type 2 diabetes mellitus without complications Code(s): E11.9 - Type 2 diabetes mellitus without complications Status: Acute Assessment and Plan: Hgb A1c 5.8 No home meds Hypoglycemic protocl Monitor (7) Chronic renal insufficiency, stage III (moderate): Qualifiers: Chronic kidney disease stage 3 subtype: stage 3a (GFR 45-59) Qualified Code(s): N18.31 - Chronic kidney disease, stage 3a Code(s): N18.3 - Chronic kidney disease, stage 3 (moderate) Status: Acute Assessment and Plan: Cr 1.5-->1.1-->1.2 today, appears close to baseline Renally dose all meds Avoid nephrotoxins Monitor (8) HCAP (healthcare-associated pneumonia): Code(s): J18.9 - Pneumonia, unspecified organism Status: Acute Assessment and Plan: Bilateral Febrile Worsening CXR suggestive of bilateral pna Follow procal, BC, urine antigen Empiric antibiotics IS Additional Plan Code status: FULL DVT Ppx: on Eliquis PT/OT Subjective Date/time seen: 10/26/21 14:40 Interval history: 10/24/2021: Pt seen and examined this a.m.; no acute events overnight; pt complaints of SOB and cough; denies any CP 10/25/2021: Pt seen and evaluated this a.m.;low grade temp overnight; this afternoon; spiked temp 38.7; continues with cough 10/26/2021: Pt seen and examined; afebrile; +cough, +SOB; pt feels weak and did not sleep well last evening; poor appetite Review of Systems Review of Systems: All systems reviewed & are unremarkable except as noted in HPI and below Exam Const: General: no acute distress, alert and awake Orientation/consciousness: patient oriented x3 HENMT: Head: normocephalic and atraumatic Ears: hearing grossly normal bilaterally and external ears normal Face and sinus: face symmetric Mouth: Yes Normal oral and palatal mucosa present Eyes: Pupils: Equal, round and reactive pupils present EOM: EOMs intact bilaterally Neck: Neck: full ROM, trachea midline and no JVD Resp: Auscultation: other (coarse breath sounds ) Cardio: Jugular venous distension: no JVD Rate: regular rate Rhythm: regular rhythm Heart sounds: S1 normal heart sound present and S2 normal heart sound present GI: Inspection: normal to inspection Auscultation: normal bowel sounds : General: Yes no CVA tender
[2021-10-26 16:54] LABS: Glucose Point of Care 161 mg/dl (65-105)
[2021-10-26 20:46] LABS: Glucose Point of Care 120 mg/dl (65-105)
[2021-10-27] VITALS (14 sets, daily range): BP systolic 95–118; BP diastolic 44–62; PULSE 72–86; RESP 14–18; TEMP 36.6–37.1; O2SAT 92–98
[2021-10-27 05:46] LABS: Hemoglobin 8.7 g/dL (12.0-15.0); Mean Corpuscular HGB Conc 31.1 g/dl (32-36); Mean Corpuscular Hemoglobin 31.6 pg (26-34); Mean Corpuscular Volume 101.8 fl (80-100); Mean Platelet Volume 10.6 fl (7.4-10.4); Platelet Count Result 203 k/mm3 (150-375); Red Blood Count 2.75 M/mm3 (4.2-5.4); Red Cell Distribution Width 15.3 % (11.5-14.5); White Blood Count 6.5 K/mm3 (4.5-10.0)
[2021-10-27] MEDS: LEVOTHYROXINE SODIUM 25 MCG TABLET PO (05:48)
[2021-10-27 06:01] LABS: Anion Gap 5 mmol/L (8-16); Blood Urea Nitrogen 22 mg/dL (7-17); Calcium 8.4 mg/dL (8.4-10.2); Carbon Dioxide 32 mmol/L (22-30); Chloride 98 mmol/L (98-107); Estimated CRCL calculation 31 ml/min; Estimated Glomerular Filt Rate 53; Glucose 112 mg/dL (65-110); Potassium 3.6 mmol/L (3.4-5.0); Sodium 135 mmol/L (137-145)
[2021-10-27] MEDS: SACUBITRIL/VALSARTAN 24-26 MG TABLET 1 TAB PO ×2 (08:19→20:50)
[2021-10-27] MEDS: CLOPIDOGREL BISULFATE 75 MG TABLET PO (08:19)
[2021-10-27] MEDS: ISOSORBIDE MONONITRATE 30 MG TAB.ER.24H PO (08:19)
[2021-10-27] MEDS: GABAPENTIN 300 MG CAPSULE PO (08:20)
[2021-10-27] MEDS: METOPROLOL SUCCINATE EXT REL 25 MG TABCR PO (08:20)
[2021-10-27] MEDS: APIXABAN 2.5 MG TABLET PO ×2 (08:20→17:26)
[2021-10-27] MEDS: FUROSEMIDE INJ 40 MG/4 ML VIAL IV PUSH (08:22)
[2021-10-27] MEDS: BENZOCAINE/MENTHOL (*BKC) 18 EA LOZENGE 1 LOZENGE PO (08:23)
[2021-10-27 08:27] LABS: Glucose Point of Care 111 mg/dl (65-105)
--- NOTE | 2021-10-27 09:51 | PM.PNCARD ---
Progress Note: A&P Assessment and Plan (1) Acute on chronic HFrEF (heart failure with reduced ejection fraction): Code(s): I50.23 - Acute on chronic systolic (congestive) heart failure <JACQUELINE Taylor - Last Filed: 10/27/21 11:06> Status: Acute <JACQUELINE Taylor - Last Filed: 10/27/21 11:06> Assessment and Plan: Patient presents with progressive exertional dyspnea, cough, lower extremity edema and weight gain after reduction in Lasix from 20 mg to 10 mg daily 2 weeks ago. She has diuresed well with IV lasix. Today will shift her from IV lasix to oral, 40 mg p.o. b.i.d. This will need to be decreased prior to discharge. Monitor renal function and electrolytes-creatinine today is 1.0 Continue accurate input and output daily weights less than 2 g daily sodium intake. <JACQUELINE Taylor - Last Filed: 10/27/21 11:06> (2) Paroxysmal atrial fibrillation: Code(s): I48.0 - Paroxysmal atrial fibrillation <JACQUELINE Taylor - Last Filed: 10/27/21 11:06> Status: Acute <JACQUELINE Taylor - Last Filed: 10/27/21 11:06> Assessment and Plan: Maintaining sinus rhythm. Continue current medical therapy with Toprol XL 25 mg daily. Remains on apixaban 2.5 mg daily in addition to clopidogrel 75 mg daily. H&H stable, monitor for bleeding. <JACQUELINE Taylor - Last Filed: 10/27/21 11:06> (3) Elevated troponin: Code(s): R77.8 - Other specified abnormalities of plasma proteins <JACQUELINE Taylor - Last Filed: 10/27/21 11:06> Status: Resolved <JACQUELINE Taylor - Last Filed: 10/27/21 11:06> Assessment and Plan: Type 2 infarction chronic elevation flat curve no symptoms suggestive of acute myocardial infarction. Continue medical therapy. <JACQUELINE Taylor - Last Filed: 10/27/21 11:06> (4) CAD (coronary artery disease): Qualifiers: Associated angina: without angina Coronary Disease-Associated Artery/Lesion type: [place] artery [place] vs. transplanted heart: [place] heart Qualified Code(s): I25.10 - Atherosclerotic heart disease of [place] coronary artery without angina pectoris <JACQUELINE Taylor - Last Filed: 10/27/21 11:06> Code(s): I25.10 - Atherosclerotic heart disease of [place] coronary artery without angina pectoris <JACQUELINE Taylor - Last Filed: 10/27/21 11:06> Status: Acute <JACQUELINE Taylor - Last Filed: 10/27/21 11:06> Assessment and Plan: Remote history of subacute STEMI managed 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ly which occurred in setting of GI bleed and severe anemia in the past. Was not on statin due to the abnormal LFTs previously. <JACQUELINE Taylor - Last Filed: 10/27/21 11:06> (5) Chronic renal insufficiency, stage III (moderate): Qualifiers: Chronic kidney disease stage 3 subtype: stage 3a (GFR 45-59) Qualified Code(s): N18.31 - Chronic kidney disease, stage 3a <JACQUELINE Taylor - Last Filed: 10/27/21 11:06> Code(s): N18.3 - Chronic kidney disease, stage 3 (moderate) <JACQUELINE Taylor - Last Filed: 10/27/21 11:06> Status: Acute <JACQUELINE Taylor - Last Filed: 10/27/21 11:06> Assessment and Plan: Stable. Continue to monitor closely with diuresis. Continue to monitor closely. Monitor electrolytes and replete as appropriate. <JACQUELINE Taylor - Last Filed: 10/27/21 11:06> (6) Anemia: Qualifiers: Anemia type: iron deficiency Iron deficiency anemia type: other iron deficiency Qualified Code(s): D50.8 - Other iron deficiency anemias <JACQUELINE Taylor - Last Filed: 10/27/21 11:06> Code(s): D64.9 - Anemia, unspecified <JACQUELINE Taylor - Last Filed: 10/27/21 11:06> Status: Acute <JACQUELINE Taylor - Last Filed: 10/27/21 11:06> Assessment and Plan: As above. Continue to follow H&H on anticoagulatio
--- NOTE | 2021-10-27 11:21 | PM.IMPN ---
Progress Note: A&P Assessment and Plan (1) Acute on chronic systolic (congestive) heart failure: Code(s): I50.23 - Acute on chronic systolic (congestive) heart failure Status: Acute Assessment and Plan: The patient is an 81 year old woman with a past medical history significant for systolic CHF EF 35% (09/2021), STEMI (02/2021), CAD s/p KOURTNEY (2010), Afib on Eliquis, CKD III, DM type II, who has been admitted after presenting to the ED with worsening SOB for the past 2 days with associated leg swelling. She was recently hospitalized here from 10/02-10/07/2021 and treated for ARF, AMS and fever and was discharged home. Initial vitals showed elevated blood pressure 151/87, normal heart rate 85 beats per minute, afebrile, 92% on room air. Initial labs showed normal white blood cell count 8,500 with elevated neutrophil, macrocytic anemia with hemoglobin of 10, hematocrit 33%. Slight hyponatremia at 134 which seems to be her baseline, elevated renal function 1.5, BUN 23, slight elevation of LFTs AST 123, ALT 153. Troponins were elevated minimally and flat at 0.047 and trending down to 0.041[place] [address]. Chest x-ray on arrival showed diffuse lung disease, likely moderate pulmonary edema with basilar atelectasis. Small pleural effusions. Cardiomegaly. While in emergency room the patient did become hypoxic and required 4 L of oxygen. Rapid COVID swab was negative. Patient was admitted to the hospital with acute respiratory failure with hypoxemia and acute systolic congestive heart failure exacerbation. Patient was started on IV Lasix 40 mg b.i.d. and a cardiology consultation was completed and have switched patient from IV Lasix to PO Lasix 40 mg BID. Cardiology recommends monitoring the patient overnight on these medications, rechecking labs in the morning and if stable can be discharged home. Otherwise, patients has been diuresing well with a stable blood pressure in her now off of oxygen resting comfortably on room air. The patient spiked a fever on 10/25/2020 and her chest x-ray at that time showed mild patchy airspace opacity in bilateral lung bases which could be edema versus atelectasis versus pneumonia. At that time the patient was started on IV antibiotics for hospital-acquired pneumonia with Rocephin and Levaquin #3. Patient is doing well at this time, no more fevers. Normal white blood cell count. Will most likely continue antibiotics upon discharge for a total of 7 days. 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 Will get home O2 evaluation prior to discharge. Treatment as above (3) Chronic hyponatremia: Code(s): E87.1 - Hypo-osmolality and hyponatremia Status: Acute Assessment and Plan: Na 134-->133-->135 today. Stable Monitor (4) Elevated troponin: Code(s): R77.8 - Other specified abnormalities of plasma proteins Status: Resolved Assessment and Plan: Flat trend Likely 2/2 CHF Cardiology consulted and did not recommend any further work up at this time (5) Atrial fibrillation: Qualifiers: Atrial fibrillation type: paroxysmal Qualified Code(s): I48.0 - Paroxysmal atrial fibrillation Code(s): I48.91 - Unspecified atrial fibrillation Status: Acute Assessment and Plan: SR Fausto COVINGTON, and [place] Cardiology consulted Tele monitoring (6) Type 2 diabetes mellitus without complication: Qualifiers: Diabetes mellitus senior living insulin use: unspecified senior living insulin use
[2021-10-27 12:03] LABS: Glucose Point of Care 109 mg/dl (65-105)
--- NOTE | 2021-10-27 14:33 | HOMEO2EVAL ---
Evaluation was performed at [facility] Home Oxygen Evaluation RC: Home Oxygen (O2) Evaluation Start: 10/27/21 11:18 Freq: ONCE Status: Active Protocol: RPE Activity Type Activity Date Activity User E-Sign Co-Sign Detail Recorded Client Recorded Date Recorded By Document 10/27/21 14:10 BASIA [email or web address] 10/27/21 14:33 BASIA Document 10/27/21 14:13 BASIA [email or web address] 10/27/21 14:33 BASIA Document 10/27/21 14:15 BASIA [email or web address] 10/27/21 14:33 BASIA 10/27/21 10/27/21 10/27/21 14:10 14:13 14:15 Home O2 Evaluation Test Phase Resting Exercise Resting Oxygen Delivery Room Air Room Air Room Air Pulse Oximetry (90-100 %) 96 94 96 Treatment Charges O2 Evaluation - Inpatient
--- NOTE | 2021-10-27 14:33 | PCRCNOTE ---
HOME O2 EVAL DONE, NO HOME O2 NEEDED AT THIS TIME.RN NOTIFIED
[2021-10-27 17:01] LABS: Glucose Point of Care 131 mg/dl (65-105)
[2021-10-27] MEDS: FUROSEMIDE 40 MG TABLET PO (17:26)
[2021-10-27 21:27] LABS: Glucose Point of Care 119 mg/dl (65-105)
[2021-10-28] VITALS: BP 111/52; PULSE 100; RESP 18; TEMP 36.2; O2SAT 96
[2021-10-28] MEDS: BENZOCAINE/MENTHOL (*BKC) 18 EA LOZENGE 1 LOZENGE PO ×2 (00:27→12:52)
[2021-10-28] MEDS: MELATONIN 3 MG TABLET PO (01:07)
[2021-10-28 04:00] VITALS: BP 100/59; PULSE 96; PULSE 99; RESP 18; TEMP 36.2; O2SAT 96
[2021-10-28 05:12] LABS: Hematocrit 29.3 % (37.0-47.0); Hemoglobin 9.3 g/dL (12.0-15.0); Mean Corpuscular HGB Conc 31.7 g/dl (32-36); Mean Corpuscular Hemoglobin 31.4 pg (26-34); Mean Platelet Volume 10.1 fl (7.4-10.4); Platelet Count Result 229 k/mm3 (150-375); Red Blood Count 2.96 M/mm3 (4.2-5.4); Red Cell Distribution Width 15.1 % (11.5-14.5); White Blood Count 6.7 K/mm3 (4.5-10.0)
[2021-10-28 05:25] LABS: Anion Gap 6 mmol/L (8-16); Blood Urea Nitrogen 21 mg/dL (7-17); Calcium 8.7 mg/dL (8.4-10.2); Carbon Dioxide 31 mmol/L (22-30); Chloride 99 mmol/L (98-107); Estimated CRCL calculation 28 ml/min; Estimated Glomerular Filt Rate 47; Glucose 125 mg/dL (65-110); Magnesium 2.1 mg/dL (1.6-2.3); Potassium 3.4 mmol/L (3.4-5.0); Sodium 136 mmol/L (137-145)
[2021-10-28 05:53] LABS: Pneumococcal Antigen Urine Not Detected (Not Detected)
[2021-10-28] MEDS: LEVOTHYROXINE SODIUM 25 MCG TABLET PO (06:09)
[2021-10-28 07:57] VITALS: BP 115/52; PULSE 91; TEMP 36.5; O2SAT 95
[2021-10-28 08:00] VITALS: PULSE 100
[2021-10-28] MEDS: POTASSIUM CHLORIDE 20 MEQ TABLET 40 MEQ PO (08:06)
[2021-10-28] MEDS: APIXABAN 2.5 MG TABLET PO (08:08)
[2021-10-28] MEDS: SACUBITRIL/VALSARTAN 24-26 MG TABLET 1 TAB PO (08:08)
[2021-10-28] MEDS: CLOPIDOGREL BISULFATE 75 MG TABLET PO (08:08)
[2021-10-28] MEDS: ISOSORBIDE MONONITRATE 30 MG TAB.ER.24H PO (08:08)
[2021-10-28] MEDS: PANTOPRAZOLE 40 MG TABLET PO (08:08)
[2021-10-28] MEDS: FUROSEMIDE 20 MG TABLET PO (08:08)
[2021-10-28] MEDS: GABAPENTIN 300 MG CAPSULE PO (08:08)
[2021-10-28] MEDS: METOPROLOL SUCCINATE EXT REL 25 MG TABCR PO (08:08)
[2021-10-28 08:10] LABS: Glucose Point of Care 133 mg/dl (65-105)
--- NOTE | 2021-10-28 09:42 | PM.PNCARD ---
Progress Note: A&P Assessment and Plan (1) Acute on chronic HFrEF (heart failure with reduced ejection fraction): Code(s): I50.23 - Acute on chronic systolic (congestive) heart failure Status: Acute Assessment and Plan: Patient presents with progressive exertional dyspnea, cough, lower extremity edema and weight gain after reduction in Lasix from 20 mg to 10 mg daily 2 weeks ago. She has diuresed well with IV lasix. She is symptomatically better. Continue metoprolol succinate, sacubitril/valsartan. Patient will need maintenance diuresis with 1st med at discharge. -ok for discharge from cardiac standpoint. 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 Discussed with the patient and she verbalized understanding. (2) Paroxysmal atrial fibrillation: Code(s): I48.0 - Paroxysmal atrial fibrillation Status: Acute Assessment and Plan: Maintaining sinus rhythm. Anticoagulation with apixaban 2.5 mg b.i.d.. Continue metoprolol succinate. (3) Elevated troponin: Code(s): R77.8 - Other specified abnormalities of plasma proteins Status: Resolved Assessment and Plan: Type 2 infarction. Continue medical therapy. (4) CAD (coronary artery disease): Qualifiers: Coronary Disease-Associated Artery/Lesion type: [place] artery [place] vs. transplanted heart: [place] heart Associated angina: without angina Qualified Code(s): I25.10 - Atherosclerotic heart disease of [place] coronary artery without angina pectoris Code(s): I25.10 - Atherosclerotic heart disease of [place] coronary artery without angina pectoris Status: Acute Assessment and Plan: Remote history of subacute STEMI managed 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ly which occurred in setting of GI bleed and severe anemia in the past. Was not on statin due to the abnormal LFTs previously. (5) Chronic renal insufficiency, stage III (moderate): Qualifiers: Chronic kidney disease stage 3 subtype: stage 3a (GFR 45-59) Qualified Code(s): N18.31 - Chronic kidney disease, stage 3a Code(s): N18.3 - Chronic kidney disease, stage 3 (moderate) Status: Acute Assessment and Plan: Stable. Continue to monitor closely with diuresis. Continue to monitor closely. Monitor electrolytes and replete as appropriate. (6) Anemia: Qualifiers: Anemia type: iron deficiency Iron deficiency anemia type: other iron deficiency Qualified Code(s): D50.8 - Other iron deficiency anemias Code(s): D64.9 - Anemia, unspecified Status: Acute Assessment and Plan: As above. Continue to follow H&H on anticoagulation and antiplatelet therapy. Stable thus far. (7) History of GI bleed: Code(s): Z87.19 - Personal history of other diseases of the digestive system Status: Acute Assessment and Plan: Stable no evidence at this time, but need to continue monitoring. Subjective Date/time seen: 10/28/21 09:42 Interval history: Date of service 10/27/2021: Patient reports feeling much better today and states she is slowly back to her baseline. She does feel comfortable with going home. She denies any shortness of breath, dyspnea with exertion, fevers, chills. She does report Resolution of her leg swelling. Denies any chest pain, nausea, vomiting, abdominal pain, leg cramping, lightheadedness, dizziness, or any other symptoms at this time. Date of service 10/28/2021-patient reports that she is feeling well today. She denies any shortness of breath or chest pain. Exam Narrative: PHYSICAL EXAMINATION: GENERAL: Alert, oriented, no acute distress MENTAL STATUS: affect appropriate to mood EYES: Extraocular movements intact, no pallor EARS: External ears appear normal, hearing grossly normal NOSE: Normal and patent, no discharge MOUTH: Mucous membranes moist, tongue normal NECK: Supple, no JVD CHEST: Good respiratory effort, clear to auscultation HEART: N
[2021-10-28 10:35] LABS: Procalcitonin 0.2 ng/mL
[2021-10-28 12:00] VITALS: PULSE 85
[2021-10-28 12:05] LABS: Glucose Point of Care 103 mg/dl (65-105)
--- NOTE | 2021-10-28 13:45 | PM.DS ---
DS: Admitting Diagnosis Discharge Date 10/28/21 Admitting Diagnosis SOB DS: Discharge Diagnosis Discharge Diagnosis (1) Acute on chronic systolic (congestive) heart failure: Code(s): I50.23 - Acute on chronic systolic (congestive) heart failure Status: Acute Assessment and Plan: The patient is an 81 year old woman with a past medical history significant for systolic CHF EF 35% (09/2021), STEMI (02/2021), CAD s/p KOURTNEY (2010), Afib on Eliquis, CKD III, DM type II, who has been admitted after presenting to the ED with worsening SOB for the past 2 days with associated leg swelling. She was recently hospitalized here from 10/02-10/07/2021 and treated for ARF, AMS and fever and was discharged home. Initial vitals showed elevated blood pressure 151/87, normal heart rate 85 beats per minute, afebrile, 92% on room air. Initial labs showed normal white blood cell count 8,500 with elevated neutrophil, macrocytic anemia with hemoglobin of 10, hematocrit 33%. Slight hyponatremia at 134 which seems to be her baseline, elevated renal function 1.5, BUN 23, slight elevation of LFTs AST 123, ALT 153. Troponins were elevated minimally and flat at 0.047 and trending down [place] 0.041[place] [address]. Chest x-ray on arrival showed diffuse lung disease, likely moderate pulmonary edema with basilar atelectasis. Small pleural effusions. Cardiomegaly. While in emergency room the patient did become hypoxic and required 4 L of oxygen. Rapid COVID swab was negative. Patient was admitted to the hospital with acute respiratory failure with hypoxemia and acute systolic congestive heart failure exacerbation. Patient was started on IV Lasix 40 mg b.i.d. and a cardiology consultation was completed and have switched patient from IV Lasix to PO Lasix 40 mg daily and Potassium 20 mEq which is what she was on prior to last hospitalization when dosing was reduced. Patients has been diuresing well with a stable blood pressure in her now off of oxygen resting comfortably on room air. The patient spiked a fever on 10/25/2020 and her chest x-ray at that time showed mild patchy airspace opacity in bilateral lung bases which could be edema versus atelectasis versus pneumonia. At that time the patient was started on IV antibiotics for hospital-acquired pneumonia with Rocephin and Levaquin #4. Patient is doing well at this time, no more fevers. Normal white blood cell count. Will continue antibiotics upon discharge for a total of 7 days. (2) Acute and chronic respiratory failure with hypoxia: Code(s): J96.21 - Acute and chronic respiratory failure with hypoxia Status: Acute Assessment and Plan: Currently off O2 at this time. Home O2 evaluation showed she does not need oxygen. (3) Chronic hyponatremia: Code(s): E87.1 - Hypo-osmolality and hyponatremia Status: Acute Assessment and Plan: Na 136 today. Stable (4) Elevated troponin: Code(s): R77.8 - Other specified abnormalities of plasma proteins Status: Resolved Assessment and Plan: Flat trend Likely 2/2 CHF (5) Atrial fibrillation: Qualifiers: Atrial fibrillation type: paroxysmal Qualified Code(s): I48.0 - Paroxysmal atrial fibrillation Code(s): I48.91 - Unspecified atrial fibrillation Status: Acute Assessment and Plan: Stable, continue Eliquis, amiodarone and metoprolol. 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
[2021-10-28 14:25] VITALS: BP 101/47; PULSE 77; RESP 22; TEMP 36.6; O2SAT 96
[2021-10-29 04:15] LABS: Legionella pneumophila Ag Ur Not Detected (Not Detected)
== END 2021-10-28 15:51 | disposition home or self-care (01) | DRG 291 ==
LOC: ANHED 22:37 → ANH3MEDSUR 10-23 02:49 → ANH2MED 10-23 16:42
PROVIDERS: Nurse Practitioner Adult Health; Admitting Provider Internal Medicine; Emergency Provider Emergency Medicine; PCP Family Medicine; Visit Provider Physician Assistant
DX: I50.23 Acute on chronic systolic (congestive) heart failure (principal); J96.21 Acute and chronic respiratory failure with hypoxia; J18.9 Pneumonia, unspecified organism; E87.1 Hypo-osmolality and hyponatremia; N18.31 Chronic kidney disease, stage 3a; E11.22 Type 2 diabetes mellitus with diabetic chronic kidney disease; Z20.822 Contact with and (suspected) exposure to COVID-19; I25.10 Atherosclerotic heart disease of native coronary artery without angina pectoris; I48.0 Paroxysmal atrial fibrillation; D50.8 Other iron deficiency anemias; E03.9 Hypothyroidism, unspecified; E11.42 Type 2 diabetes mellitus with diabetic polyneuropathy; I73.9 Peripheral vascular disease, unspecified; E55.9 Vitamin D deficiency, unspecified; Z95.5 Presence of coronary angioplasty implant and graft; I25.2 Old myocardial infarction; E78.2 Mixed hyperlipidemia; M40.294 Other kyphosis, thoracic region; Z79.01 Long term (current) use of anticoagulants; Z87.19 Personal history of other diseases of the digestive system
CPT/HCPCS: 36415; 51702; 71045; 80048; 80053; 82948; 83036; 83735; 83880; 84145; 84484; 85025; 85027; 87040; 87426; 87449; 87899; 93005; 94618; 96374; 96376; 97110; 97116; 97161; 97165; 97530; 97535; 99291; A9270; C9803; G0378; J0696; J1940; J1956; J2550; J3480; J7040

== ENCOUNTER 2025-05-26 23:15 | Emergency (ER) | payer MEDICARE, BC, SELFPAY ==
[2025-05-26 23:08] VITALS: BP 127/101; PULSE 96; RESP 15; O2SAT 85
[2025-05-26] MEDS: ETOMIDATE 20 MG/10 ML AMPUL IV PUSH (23:27)
[2025-05-26] MEDS: ROCURONIUM BROMIDE 50 MG/5 ML VIAL 70 MG IV PUSH (23:27)
--- NOTE | 2025-05-26 23:31 | ECG_ITS ---
Test Date: 2025-05-26 23:14:12 Measurements Intervals [place] Rate: 95 P: 83 MT: 187 QRS: -33 QRSD: 121 T: 132 QT: 371 QTc: 468 Interpretive Statements SINUS RHYTHM LEFT AXIS DEVIATION CONSIDER ANTERIOR INFARCT, AGE INDETERMINATE ST DEVIATION AND MODERATE T-WAVE ABNORMALITY, CONSIDER ANTEROLAT/HIGH LAT ISCHEMIA ABNORMAL ECG No previous ECG available for comparison Electronically Signed On 05-27-2025 06:21:52 CDT by Anatoliy Bolton D.O.
--- NOTE | 2025-05-26 23:37 | ED_ITS ---
HPI - CPR General Chief Complaint: Arrhythmia/Palpitations Stated Complaint: POST CARDIAC ARREST; ROSC IN FIELD Time Seen by Provider: 05/26/25 23:30 Source: family (Sons Garcia and Nate) and EMS Mode of arrival: EMS Limitations: clinical condition History of Present Illness HPI narrative: Patient presents after report that family with whom she lives heard her collapse while she was getting ready for bed. It was initially reported that she hit her head on the nightstand although family later states that they do not know if this occurred only that she had been found beside the bed. Family immediately started CPR on scene and call 911. Police department arrived and continued CPR. EMS had been told by the family that she had extensive/complex medical history although the exact details were unclear. No history of diabetes mellitus. EMS continued ACLS performing high quality CPR. They obtained IV access as well as IO access in the right proximal tibia. Immediately upon being disrobed and placed on their monitor she was found to be in VFib. They performed defibrillation at 200 joules and gave 1 epinephrine at 10:46 p.m.. At pulse check at 10:47 p.m. she was found to have a pulse, i.e. ROSC. Patient had a heart rate between 90 and 100 and it appeared to be atrial fibrillation. BP was 154/96. They placed an eye gel as airway and began assisting with ventilations by bag-valve mask. She was saturating 99%. Blood glucose was 256 mg/dL. It had initially been reported that she had fixed and nonreactive pupils however they did note that in route she had begun to have constriction of her pupils and was blinking. Related Data Home Medications ?Medication ?Instructions ?Recorded ?Confirmed ?Last Taken ?Type amiodarone 200 mg tablet (Pacerone) 100 mg PO DAILY 12/06/21 04/17/24 Unknown History Allergies Allergy/AdvReac Type Severity Reaction Status Date / Time No Known Allergies Verified 12/06/21 14:06 [facility] Past Medical History Medical History Colon cancer screening declined Chronic anemia Chronic hyponatremia Congestive heart failure Echocardiogram in February 2021 showed reduced left ventricular systolic function with an EF of 35% and akinesis of the basal inferior wall with hypokinesis of the apical septal, apical and mid anterior marroquin. Grade 2 diastolic dysfunction also noted. Peripheral vascular disease Atrial fibrillation Gastric ulcer Thoracic kyphosis Allergic rhinitis Atherosclerotic heart disease of [place] coronary artery without angina pectoris Chronic low back pain without sciatica Chronic renal insufficiency, stage III (moderate) Hypothyroidism, unspecified Mixed hyperlipidemia Peripheral neuropathy, idiopathic Type 2 diabetes mellitus without complication Vitamin D deficiency Surgical History Surgical History History of sinus surgery History of repair of right rotator cuff History of heart artery stent Interdigital neuroma of left foot History of inguinal hernia repair Fracture of left hip requiring operative repair History of carpal tunnel surgery of right wrist History of cataract surgery Family History Family History Mother Family history of heart disease in male family member before age 55 Hypertension Family history of cardiovascular disease Family history of coronary artery disease Father Family history of lung cancer Sibling Family history of heart disease in male family member before age 55 Social History Social History Social History: Surrogate decision maker: Garcia Srinivasan, son. Code status: Full code. Smoking status: Never smoker Second hand tobacco smoke exposure: No Alcohol intake: never Substance use: never Living arrangements: with family Occupation/Education: retired Spiritual care concerns: No Exam Narrative: Vitals: Patient initially with a normal HR, acceptable HR, saturating appropriately while being assisted with ventilations by BVM with iGel in place General: Patient is unresponsive and pale Head: Normocephalic, atraumatic. Eyes: Pupils are responsive, patient occasionally blinking but not confrontational to threat ENT: External ears WNL. Nares patent. Oropharynx is clear with no erythema or exudate. Neck: Supple no masses. Trachea is midline. Lungs: Bilateral breath sounds with BVM. Spontaneous respirations Cardiovascular/Chest: Pulses were palpated. No ecchymosis on chest. Abdomen. Soft, non distended. No rigidity. No ecchymosis. MSK: No deformity. IO at R proximal tibia. : Normal genitalia. Neurological: Patient blinks but otherwise, is unresponsive, does not withdraw to pain. Skin: Warm but pale. Course Vital Signs Vital signs: Vital Signs Pulse Rate 96 05/26/25 23:08 Respiratory Rate 15 05/26/25 23:08 Blood Pressure 127/101 H 05/26/25 23:08 Pulse Oximetry 85 L 05/26/25 23:08 Oxygen Delivery Bag Valve Mask 05/26/25 23:08 Pulse Rate 96 05/26/25 23:08 Respiratory Rate 15 05/26/25 23:08 Blood Pressure 127/101 H 05/26/25 23:08 Pulse Oximetry 85 L 05/26/25 23:08 Oxygen Delivery Bag Valve Mask 05/26/25 23:08 Procedures Intubation Intubation #1: Intubation Date: 05/27/25 Time out performed: Yes sedative: Etomidate paralytic: Rocuronium Laryngoscope: Nav Tube Size (cm): Cuffed Method of Intubation: orotracheal Number of Attempts: 1 Tube Secured Depth (cm): 22 Tube Secured Location: lips Tube Placement Confirmation: visualized tube passing through cords, equal breath sounds bilaterally and confirmation by capnometry Patient Tolerated Procedure: well and no complications Intubation Complications: none Additional Comments: Maintained SpO2 greater than 99%. MDM - Cardiac Arrest/CPR MDM Narrative Medical decision making narrative: This is a 85 year old female who presents to the emergency department after ROSC. EMS had been called for patient with chief complaint of cardiac arrest. EMS was called to the scene where immediate CPR had been performed 1st by family and then by police department. They found the patient to be pulseless, and thus continued resuscitative efforts. Other than the initiation of compressions, they also obtained IV and IO access, placed eye gel for ventilation by bag-valve mask, give 1 dose of epinephrine at 2246, and defibrillated with 200 joules after finding ventricular fibrillation on the monitor. ROSC obtained at 10:47 p.m.. Immediately upon entering, resuscitation efforts are continued, the patient is disrobed, and placed on continuous cardiac monitoring with defibrillation pads. Further IV access is obtained, laboratory values are attempted to be drawn but minimal blood in tubes. POC 164mg/dL. EKG obtained. Patient has a pulse and with appropriate vital signs saturating appropriately with bag-valve mask. Igel replaced with ET tube as above. Patient tolerates this well. As further post ROSC efforts are being carried out, however, and as family arriving into family room, I am notified that patient quickly lost pulses/vital signs and ACLS initiated. Multiple rounds of ACLS were performed with administration of epinephrine, calcium given consideration of renal failure given her past medical history chronic kidney disease. She has no pulses on subsequent pulse checks. Point of care ultrasound is performed and shows minimal valvular activity but no efficacy contraction of the cardiac membrane. Team continued ACLS protocol and I did discuss with her sons in the family room that after several pulse checks, patient had not regained vital signs. Family report that she has had several severe/near experiences and despite this has been able to remain in her home until today which seems to have provided comfort to them and patient. They are in agreement with terminating efforts at this time. No pulses are palpated and there is cardiac standstill on ultrasound. The patient is pronounced . Time of is 23:55. == Critical Care: 1 or more vital organ systems impaired with a high probability of imminent or life-threatening deterioration in the patient's condition requiring frequent personal assessment and manipulation of the patient's condition. This included time spent evaluating the patient, speaking with EMS pre-hospital personnel and family, reviewing/interpreting laboratory/imaging studies, discussing the case with consultants or admitting teams, retrieving data and reviewing charts, monitoring for decompensation, documenting the visit, and performing bundled procedures exclusive of separately billed procedures. Differential Diagnosis Differential diagnosis: Likely acute massive pulmonary embolism, acute respiratory failure, acute myocardial infarction, cardiac arrest, sudden cardiac and other (Intracranial hemorrhage -spontaneous versus traumatic; mechanical fall, hypoglycemia; acute renal failure, electrolyte abnormalities) Medical Records Attestation: I reviewed the patient's medical records. Medical records narrative: Reviewed past medical history Lab Data Attestation: I reviewed the patient's lab results. Labs: Lab Results 05/26/25 Range/Units 23:46 POC Capillary Glucose 164 H (65-105) mg/dl ECG Data EKG #1: Attestation: I personally reviewed and interpreted this ECG as follows: ECG completion date: 05/26/25 ECG completion time: 23:14 Interpretation: Normal sinus rhythm at a rate of 95 beats per minute with a SD interval 187. QRS 121. QT/QTC 371/424. Good R-wave progression across the precordial leads. T-wave inversions in V4 V5 and V6 as well as ST depression yes most notably in V6 and V5 but also in V4. Left axis deviation (QRS is positive with dominant R wave in Lead I; QRS is negative with dominant S wave in leads II, III, and aVF) Critical Care Time Critical Care Time Critical Care Time: Yes Total Critical Care Time: 50 Discharge Plan Discharge Clinical Impression: Cardiopulmonary arrest Patient Disposition: Condition: Patient Language: Algerian Prescriptions: No Action amiodarone [Pacerone] 200 mg tablet 100 mg PO DAILY lidocaine 4 % cream 1 applic topical BID PRN (Reason: pain) Qty: 30 0RF metoprolol succinate [Toprol XL] 25 mg tablet extended release 24 hr 12.5 mg PO DAILY 30 Days Qty: 15 0RF spironolactone 25 mg tablet 12.5 mg PO DAILY Qty: 1 0RF Eliquis 2.5 mg Tablet 2.5 mg PO BID 30 Days Qty: 60 0RF clopidogrel 75 mg tablet 75 mg PO QAM Qty: 30 2RF ferrous sulfate 325 mg (65 mg iron) tablet 325 mg PO DAILY Qty: 90 0RF furosemide 20 mg tablet 30 mg PO BID Qty: 30 0RF Entresto 24-26 mg tablet 1 tablet PO BID Qty: 60 0RF atorvastatin 40 mg tablet 40 mg PO DAILY Qty: 30 0RF levothyroxine 25 mcg tablet 25 mcg PO DAILY Qty: 90 3RF Follow-up/Referrals: Leda Rolon MD [Primary Care Provider] - Time of Disposition: 23:55
--- OUTSIDE RECORDS SUMMARY | 2025-05-26 23:49 | XMS_ITS | Clinical Summary ---
Author Organization [facility] [address] Address [address] [place] [address] Care Team Providers Care Director Of Partner Marketing Name Role Phone Leda Rolon MD Primary Care Provider [phone] Allergies No known active allergies Medications metoprolol XL (TOPROL-XL) 25 mg 24 hr tablet Take 25 mg by mouth 2 (two) times a day. Active clopidogrel (PLAVIX) 75 mg tablet Take 75 mg by mouth daily. Active levothyroxine (SYNTHROID, LEVOTHROID) 25 mcg tablet Take 25 mcg by mouth daily. Active gabapentin (NEURONTIN) 300 mg capsule Take 300 mg by mouth 2 (two) times a day. Active aspirin 81 mg enteric coated tablet Take 81 mg by mouth daily Active Active Problems Problem Noted Date Diagnosed Date Coronary artery disease invo [place]ving [place] coronary artery of [place] heart without angina pectoris 07/09/2017 S/P coronary artery stent placement 07/09/2017 Cervicalgia 11/07/2012 Notalgia 11/07/2012 Knee pain 11/07/2012 Arthralgia of hip 11/07/2012 Arthralgia of shoulder 11/07/2012 Lumbago 11/07/2012 Medical History Medical History Date Comments Hypertension Hypertension Hypothyroidism Hypothyroidism Family History Medical History Relation Name Comments Heart failure Mother Congestive Hea rt Failure; Coronary artery disease Sister 2 [place] nary Artery Bypass Graft; Relation Name Status Comments Mother Alive Sister 1 Alive Sister 2 Social History Tobacco Use Types Packs/Day Years Used Date Smoking Tobacco: Never Smokeless Tobacco: Never Alcohol Use Standard Drinks/Week Comments No 0 (1 standard drink = 0.6 oz pur e alcohol) Comments Unknown Sex and Gender Information Value Date Recorded Sex Assigned at Not on file Legal Sex Female 10:12 AM [employer] Gender Identity Not on file Sexual Orientation Not on file Obstetrics History Last Filed Vital Signs Vital Sign Reading Time Taken Comments Blood Pressure 138/72 01/24/2021 1:41 PM CDT Pulse 89 01/24/2021 1:41 PM CDT Temperature - - Respiratory Rate 16 07/30/2017 11:18 AM CDT Oxygen Saturation 96% 01/24/2021 1:41 PM CDT Inhaled Oxygen Concentration - - Weight 58 kg (127 lb 12.8 oz) 01/24/2021 1:41 PM CDT Height 152.4 cm (5') 01/24/2021 1:41 PM CDT Body Mass Index 24.96 01/24/2021 1:41 PM CDT Plan of Treatment [place] [address] [address] [facility] Care Teams Director Of Partner Marketing Relationship Specialty Start Date End Date Leda Rolon MD PCP - General 12/08/12
--- OUTSIDE RECORDS SUMMARY | 2025-05-26 23:49 | XMS_ITS | Continuity of Care Document ---
Author Organization [facility] [place] [id number] [place] [address] Dr Joya [address] [place] [phone] Phone Care Team Providers Care Nremt Name Role Phone Chayito Payton Unavailable Unavailable Procedures Procedure Date Eye Exam & Treatment Dilated Macular Exam Performed 10 Counseling For Antioxidant Supplements A Refraction Post-op Follow-up Visit After Cataract Laser Surgery Eye Exam Established Pt Prism Lens/es Tax - Medical Office/outpatient Visit, Est Vision Svcs Frames Purchases TF Plastic Sphcyl [place] To +/-4d .12-2d Polycarb Lens Per Lens Progressive Lens, Polycarb Frames Deluxe Post-op Follow-up Visit Post-op Follow-up Visit Post-op Follow-up Visit Remove Cataract, Insert Lens PreSurg Dilated Fundus Eval Performed De PreSurg Measurements/IOL Calc Performed And Docum Eye Exam & Treatment Visual Functional Status Assessed AREDS Formula Prescribed/Recommended Aug Dilated Macular Exam Performed 07 IOLMaster Eye Exam & Treatment Visual Functional Status Assessed AREDS Formula Prescribed/Recommended Jul Dilated Macular Exam Performed 07 Ophthalmoscopy Ophthalmoscopy Advance Directives Directive Yes / No Effective Date File Name No Information Encounters Encounter Description Practice Location Reason(s) For Visit Diagnoses Date Provider Providers Copied on Encounter [facility], [address] [place] [address] [address], [place], [place], [id number], tel:[phone] [facility] No Information May-2 4-201 0 Tata Allen [address] [facility] , [address], [place], [place], [facility], [place]. tel:[phone] [facility], [address] [place] [address] [address], [place], [place], [address], [place] tel:[phone] [facility] No Information Lonnie-1 0-200 8 Tata Allen [address] [facility] , [address], [place], [place], [facility], [place]. tel:[phone] [facility], [address] [place] [address] [address], [place], [place], [address], [place] tel:[phone] [facility] No Information May-0 9-200 8 Tata Allen [address] [facility] , [address], [place], [facility], [place]. tel:[phone] [facility], [address] [place] [address] [address], [place], [place], [address], [place] tel:[phone] [facility] No Information Jan-2 5-200 8 Tata Allen [address] [facility] , [address], [place], [facility], [place]. tel:[phone] Referring Provider: Chayito Gordon, [address], [place], [facility]. tel:[phone] [facility], [address] [place] [address] [address], [place], [place], [address], [place] tel:[phone] [facility] No Information Mar-1 8-200 8 [facility] . [address] [facility], [address], [place], [place], [address], [place]. tel:[phone] Consulting Provider: Maryam Calderon, [address] [place], [address]. tel:[phone] Office/outpat ient Visit, Est [facility], [address], [place], [place], [address], [place] tel:[phone] [facility] No Information 8 Tata Allen [address], [place], [address], [place]. tel:[phone] [facility], [address], [place], [place], [address], [place] tel:[phone] [facility] No Information 8 [facility] . [address] [facility], [address], [place], [place], [address], [place]. tel:[phone] Referring Provider: Chayito Gordon, [address], [place], [address]. tel:[phone] g Provider: Daya Alvarenga, [address] [place], [address]. tel:[phone] [facility], [address], [place], [place], [address], [place] tel:[phone] [facility] No Information 8 Tata Allen [address] , [address], [place], [address], [place]. tel:[phone] [facility], [address], [place], [place], [address], [place] tel:[phone] [facility] No Information 200 7 Tata Allen [address] , [address], [place], [address], [place]. tel:[phone] [facility], [address], [place], [place], [address], [place] tel:[phone] [facility] No Information Dec-2 0-200 7 Mayberry OD Jim. [address] , [address], [place], [facility], [place]. tel:[phone] Referring Provider: Chayito Gordon, [address], [place], [facility]. tel:[phone] [facility], [address], [place], [place], [address], [place] tel:[phone] [facility] No Information Dec-1 9-200 7 Tata Stratton. [address] , [address], [place], [facility], [place]. tel:[phone] [facility], [address] [place] [address] [address], [place], [place], [address], [place] tel:[phone] [facility] No Information Nov-3 0-200 7 Payton Chayito. [address] [facility] , [address], [place], [facility], [place]. tel:[phone] Referring Provider: Giorgi Rao, [address] [place], [place], [facility]. tel:[phone] [facility], [address] [place] [address] [address], [place], [place], [address], [place] tel:[phone] [facility] No Information Oct-2 2-200 7 Anahy Rand. [address] [place], [place], [facility], [place]. tel:[phone] Referring Provider: Chayito Gordon, [address], [place], [facility]. tel:[phone] Family History Family Member Type Diagnosis Age At Onset No Information Payers Payer name Insurance type Covered green party ID Authorkourtneya ashlee(s) [place] [id number] Social History Type Description Quantity Date Captured Comments Sex Female Smoking Status No Information Chief Complaint And Reason For Visit No Information Reason For Referral Reason For Referral No Information History Of Present Illness Encounter Date Complaint History Of Prese nt Illness No Information Functional Status Date Functional Assessmen t No Information Instructions Date Instruction Additional Infor mation No Information Assessments Type Assessment Date No Information Patient Care Teams Name Effective Dates (start - stop) Status Members No Information
--- OUTSIDE RECORDS SUMMARY | 2025-05-26 23:49 | XMS_ITS | Encounter Summary ---
Author Organization [facility] Address [address] [place] [address] Care Team Providers Care Champagne Maker Name Role Phone Leda Rolon MD Primary Care Provider [phone] Encounter Details Date Type Department Care Team (Late st Contact Info) Description 11/11/2017 Orders Only [facility] Information Management [address] [place] [address] Scanning, Provider Social History Tobacco Use Types Packs/Day Years Used Date Smoking Tobacco: Never Smokeless Tobacco: Never Alcohol Use Standard Drinks/Week Comments No 0 (1 standard drink = 0.6 oz pur e alcohol) Comments Unknown Sex and Gender Information Value Date Recorded Sex Assigned at Not on file Legal Sex Female 10:12 AM 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 SPECIALIST Gender Identity Not on file Sexual Orientation Not on file documented as of this encounter Plan of Treatment Not on file documented as of this encounter Procedures Procedure Name Priority Date/Time Associated Diagnosis Comments SCAN - RADIOLOGY/IMAGING 11/11/2017 documented in this encounter Results * SCAN - RADIOLOGY/IMAGING (11/11/2017) Anatomical Region Laterality Modality Other us Provider Scanning Final Result documented in this encounter Visit Diagnoses Not on filedocumented in this encounter Care Teams Champagne Maker Relationship Specialty Start Date End Date Leda Rolon MD PCP - General 12/08/12 documented as of this encounter
--- NOTE | 2025-05-27 00:19 | PC.NURSE ---
2314: we have 3 techs, 2 respiratory therpaists, 5 Rns, and MD Marrero are present in the room at this time. In the room we have crash cart, suctioning, RSI kit, difficult intubation box, equipment monitor phototypesetting, all set up in/by pt room. At this time MD Marrero verbally states she wants to intubate pt with a 7 tube and Mac 3. MD Marrero verbally orders 20 of etomidate and 70 of ROCC. 2325: Janes performs time out for intubation. 2327: 20 of etomidate and 70 of rocc administered. 2327: Vitals are 115 hr, 100% via ampu bag, and 179/164 2329: Janes performed intubation with 22 at the lip. 2330: 95hr, 100% via bagging, 18 rr, and 179/164. 2338: 141/112, 81% via bagging 2339: Pulse check performed- no pulse. Pt is in PEA. Cpr started immediately. 2340: MD Marrero called into room. 2341: 1 of epi administered. 2343: calcium was administered. 2344: Pulse check performed. Pt is still in PEA. CPR continued. Blood sugar is 164. 2345: 1 of Epi given. 2346: Pulse checked. No pulse felt and pt is still in PEA. 83% via bagging, 68/38, 12 respirations. CPR continues. 2348: 1 of epi given 2349: Pulse check. Pt is in PEA. 2351: 1 of epi given. 89/18, 79% via bagging, 37rr. 2352: Pulse check performed. Pt is in PEA. CPR continued. 2354:1 of epi given. 2354: MD Marrero comes back in room from speaking with family. Per Janes, family states they want us to stop life saving care at this time. 23:55: Time of called.
--- NOTE | 2025-05-27 01:12 | PC.NURSE ---
Per charge machine operator we can remove all pts tubes and IVs etc. This RN removed pt IVs IO and ET tube at this time.
--- NOTE | 2025-05-27 05:48 | PC.NURSE ---
PT'S PCP; DR. EDNA SAXENA CONTACTED, AND MADE AWARE OF PT'S EXPIRATION. DR. SAXENA STATES SHE IS AGREEABLE TO SIGNING THIS PT'S CERTIFICATE.
== END 2025-05-26 23:55 | disposition expired ==
PROVIDERS: Emergency Provider Student in an Organized Health Care Education/Training Program; PCP Family Medicine
DX: I46.9 Cardiac arrest, cause unspecified (principal); I48.91 Unspecified atrial fibrillation; I73.9 Peripheral vascular disease, unspecified; I50.9 Heart failure, unspecified; E03.9 Hypothyroidism, unspecified; E11.9 Type 2 diabetes mellitus without complications; E78.2 Mixed hyperlipidemia; E55.9 Vitamin D deficiency, unspecified
CPT/HCPCS: 31500; 36600; 82948; 92950; 93005; 96374; 96375; 99285